=== PATIENT | male | born 1940 | race Caucasian/White ===

== ENCOUNTER → 2018-01-17 | Outpatient (CLI) | payer MEDICARE ==
--- NOTE | 2018-01-17 16:05 | US ---
EXAMINATION TYPE: US duplex aorta DATE OF EXAM: 01/17/2018 COMPARISON: NONE CLINICAL HISTORY: I71.4 ABDOMINAL AORTIC ANEURYSM. AAA visualized on a chiropractic x-ray EXAM MEASUREMENTS: Abdominal Aorta: Proximal: 2.3 x 2.4cm Mid: 1.9 x 1.9cm Distal: 3.2 x 3.5cm Bifurcation: RT: 1.3 x 1.3cm LT: 1.3 x 1.3cm Distal AAA measuring up to 3.5cm. Technical limitations due to large amount of overlying bowel conten t. Limited evaluation of bifurcation There is a focal area of fusiform prominence within the distal abdominal aorta with an AP diameter of 3.1 cm the aortic bifurcation appears normal. This begins below the level the renal arteries and the distal aorta. IMPRESSION: 1. Focal fusiform prominence distal abdominal aorta terminating above the bifurcation with an AP dime nsion of 3.1 cm. Consider additional evaluation CT abdomen and pelvis.
== END | disposition home or self-care (01) ==
LOC: RADUSWWP 15:29
PROVIDERS: ATTEND Family Medicine
DX: I71.4 Abdominal aortic aneurysm, without rupture (principal)
CPT/HCPCS: 93979

== ENCOUNTER → 2018-02-11 | Outpatient (CLI) | payer MEDICARE ==
[2018-02-11 17:30] LABS: Calcium 9.6 mg/dL (8.4-10.2); Potassium 4.2 mmol/L (3.5-5.1)
--- NOTE | 2018-02-11 23:18 | CT ---
EXAMINATION TYPE: CT abdomen pelvis w con DATE OF EXAM: 02/11/2018 COMPARISON: NONE HISTORY: 77-year-old male abdominal aortic aneurysm without rupture. No complaints at time of scan TECHNIQUE: Contiguous axial scanning of the abdomen and pelvis following administration of 100 ml Iso jay 300 IV contrast. Delayed images through the kidneys and coronal/sagittal reconstructions perform ed. CT DLP: 1754 mGycm Automated exposure control for dose reduction was used. FINDINGS: Partially visualized aneurysm of the ascending aorta at 4.3 cm. Lung bases clear without pleural effu tiara. Heart is normal size without pericardial effusion. Tiny hiatal hernia. No focal liver lesion or biliary ductal dilatation. Small diverticulum of the second portion of the d uodenum projecting to the pancreatic head region. Portal venous system is patent. Gallbladder, adrenal glands,, spleen with tiny calcified granuloma, and pancreas appear within normal limits. The kidneys show numerous parapelvic cysts and subcentimeter cortical-based hypodense lesions too sma ll for accurate CT characterization, likely cysts. There is a dominant 2.7 cm cyst in the posterior u pper pole right kidney. A 1.4 cm cortical based lesion at the lateral lower pole right kidney and als o at the lower pole right kidney show soft tissue attenuation and should be reassessed at follow-up, axial image 54 and 58. Punctate nonobstructive 2 mm calculus in the right kidney and additional 4 mm nonobstructive calculus lower pole left kidney. No dilated small bowel, free fluid, or free air. Scattered nonenlarged mesenteric lymph nodes are pre sent. No abnormal lymphadenopathy seen. Mild overall stool burden with sigmoid diverticulosis. No pericolonic inflammatory change. Bilateral accessory renal arteries are present. Mild to moderate atherosclerotic calcification of the infrarenal abdominal aorta with bilobed fusiform dilatations measuring 2.9 and 2.6 cm, coronal image 62 and 59. Tortuous bilateral common iliac arteries with ectatic right common iliac artery at 1.8 cm , coronal image 62. Bladder urine distended. Prostate gland enlargement 5.1 cm with some posterior impression on the blad sanna base suggesting BPH. No abnormal fluid collection in the pelvis or pelvic lymphadenopathy seen. Bones: Degenerative changes at the SI joints and also in the mid to lower lumbar spine. IMPRESSION: 1. PARTIALLY VISUALIZED ASCENDING AORTIC ANEURYSM AT 4.3 CM. 2. BILOBED FUSIFORM ECTASIA OF THE INFRARENAL ABDOMINAL AORTA MEASURING 2.9 AND 2.6 CM; ADDITIONAL EC TATIC RIGHT COMMON ILIAC ARTERY AT 1.8 CM. 3. INCIDENTAL BILATERAL ACCESSORY RENAL ARTERIES. 4. PROSTATOMEGALY (5.1 CM) WITH SOME POSTERIOR IMPRESSION ON TO THE BLADDER BASE SUGGESTING BPH. 5. MULTIPLE BILATERAL RENAL LESIONS INCLUDING PARAPELVIC CYSTS AND SUSPECTED ADDITIONAL SMALL CORTICA L CYSTS. 2 CORTICAL LESIONS IN THE LOWER POLE OF THE RIGHT KIDNEY MEASURING UP TO 1.4 CM SHOW SOFT TI SSUE ATTENUATION WITH PROTEINACEOUS/HEMORRHAGIC CYSTS OR SMALL SOLID MASSES INCLUDED IN THE DIFFERENT IAL. A SIX-MONTH FOLLOW-UP CT IS RECOMMENDED TO ENSURE STABILITY. 6. PUNCTATE 2 MM NONOBSTRUCTIVE CALCULUS IN THE RIGHT KIDNEY AND A 4 MM NONOBSTRUCTIVE CALCULUS ON TH E LEFT. 7. SIGMOID DIVERTICULOSIS.
== END | disposition home or self-care (01) ==
LOC: RADCTMAIN 16:55
PROVIDERS: ATTEND Family Medicine
DX: I71.4 Abdominal aortic aneurysm, without rupture (principal); N40.0 Benign prostatic hyperplasia without lower urinary tract symptoms; N28.89 Other specified disorders of kidney and ureter; N28.1 Cyst of kidney, acquired; N20.0 Calculus of kidney; K57.30 Diverticulosis of large intestine without perforation or abscess without bleeding
CPT/HCPCS: 80048; 74177; 36415; Q9967

== ENCOUNTER 2018-03-25 12:48 | Emergency (ER) | payer MEDICARE ==
[2018-03-25] MEDS ORDERED: SODIUM CHLORIDE 0.9% 1,000 ML IV STA (13:19)
[2018-03-25 14:02] LABS: Basophils # (A) 0.1 k/uL (0-0.2); Basophils % (A) 1 %; Eosinophils # (A) 0.2 k/uL (0-0.7); Eosinophils % (A) 4 %; HCT 43.7 % (39.0-53.0); HGB 14.1 gm/dL (13.0-17.5); Lymphocytes # (A) 1.4 k/uL (1.0-4.8); Lymphocytes % (A) 21 %; MCH 30.3 pg (25.0-35.0); MCHC 32.2 g/dL (31.0-37.0); MCV 94.2 fL (80.0-100.0); Mean Platelet Volume 8.1; Monocytes # (A) 0.5 k/uL (0-1.0); Monocytes % (A) 8 %; Neutrophils # (A) 4.4 k/uL (1.3-7.7); Neutrophils % (A) 64 %; Platelet Count 114 k/uL (150-450); RBC 4.64 m/uL (4.30-5.90); RDW 13.1 % (11.5-15.5); WBC 6.9 k/uL (3.8-10.6)
[2018-03-25 14:11] LABS: Partial Thromboplastin Time 24.4 sec (22.0-30.0)
[2018-03-25 14:12] LABS: Albumin 3.6 g/dL (3.5-5.0); Calcium 9.1 mg/dL (8.4-10.2); Magnesium 2.1 mg/dL (1.6-2.3); Potassium 4.6 mmol/L (3.5-5.1); Total Bilirubin 0.5 mg/dL (0.2-1.3); Total Protein 5.9 g/dL (6.3-8.2)
[2018-03-25 14:22] LABS: Creatine Kinase 47 U/L (55-170)
[2018-03-25 14:35] LABS: Creatine Kinase MB 0.6 ng/mL (0.0-2.4); Troponin I <0.012 ng/mL (0.000-0.034)
--- NOTE | 2018-03-25 14:59 | ED ---
General Adult HPI - General Chief complaint: Recheck/Abnormal Lab/Rx Stated complaint: hypertension Time Seen by Provider: 03/25/18 13:05 Source: patient Mode of arrival: wheelchair Limitations: no limitations - History of Present Illness Initial comments: 77 years old gentleman has history of aneurysm is seen his family doctor and then he seen the vascular surgery Dr. Federico mobley a he was advised to keep his blood pressure around 09/25/1943 today's blood pressure was 160 and he was concerned about This is to be denies any headaches no chest pain no shortness of breath no abdominal pain no frequency urgency dysuria - Related Data Home Medications Medication Instructions Recorded Confirmed Oxybutynin Chloride [Ditropan] 5 mg PO BID 01/11/16 03/25/18 Aspirin EC [Ecotrin Low Dose] 81 mg PO DAILY 03/25/18 03/25/18 Cholecalciferol [Vitamin D3] 4,000 unit PO DAILY 03/25/18 03/25/18 Fish Oil/Dha/Epa [Fish Oil 1,200 1 cap PO DAILY 03/25/18 03/25/18 mg Fish Oil] Losartan Potassium [Cozaar] 50 mg PO DAILY 03/25/18 03/25/18 Multivit-Min/FA/Lycopen/Lutein 1 tab PO DAILY 03/25/18 03/25/18 [Centrum Silver Tablet] Tamsulosin [Flomax] 0.4 mg PO BID 03/25/18 03/25/18 amLODIPine [Norvasc] 2.5 mg PO HS 03/25/18 03/25/18 Previous Rx's Medication Instructions Recorded Atorvastatin [Lipitor] 80 mg PO HS #30 tab 01/13/16 Metoprolol Tartrate [Lopressor] 25 mg PO BID #60 tab 01/13/16 Nitroglycerin Sl Tabs [Nitrostat] 0.4 mg SUBLINGUAL Q5M PRN #25 tab 01/13/16 Allergies Allergy/AdvReac Type Severity Reaction Status Date / Time No Known Allergies Allergy Verified 03/25/18 13:20 Review of Systems ROS Statement: Those systems with pertinent positive or pertinent negative responses have been documented in the HPI. ROS Other: All systems not noted in ROS Statement are negative. Past Medical History Past Medical History: Cancer, Hypertension, Myocardial Infarction (MD), Prostate Disorder, Sleep Apnea/CPAP/BIPAP Additional Past Medical History / Comment(s): LEFT REAR SHOULDER MELANOMA REMOVED Last Myocardial Infarction Date:: 01/10/16 History of Any Multi-Drug Resistant Organisms: None Reported Past Surgical History: Adenoidectomy, Appendectomy, Orthopedic Surgery, Tonsillectomy Additional Past Surgical History / Comment(s): Hand surg; prostate surg Past Anesthesia/Blood Transfusion Reactions: No Reported Reaction Past Psychological History: No Psychological Hx Reported Smoking Status: Never smoker Past Alcohol Use History: Occasional Past Drug Use History: None Reported - Past Family History Father Family Medical History: Hypertension, Renal Disease Mother Family Medical History: Myocardial Infarction (MD) General Exam - General Exam Comments Initial Comments: General: The patient is awake and alert, in no distress, and does not appear acutely ill. Skin: Skin is warm and dry and no rashes or lesions are noted. Eye: Pupils are equal, round and reactive to light, extra-ocular movements are intact; there is normal conjunctiva bilaterally. Ears, nose, mouth and throat: There are moist mucous membranes and no oral lesions. Neck: The neck is supple, there is no tenderness or JVD. Cardiovascular: There is a regular rate and rhythm. No murmur, rub or gallop is appreciated. Respiratory: To auscultation bilateral, no wheezing no rhonchi no distress respiratory belle noticed Gastrointestinal: Soft, non-distended, non-tender abdomen without masses or organomegaly noted. There is no rebound or guarding present. Bowel sounds are unremarkable. Back: There is no tenderness to palpation in the midline. There is no obvious deformity. Musculoskeletal: Normal ROM, no tenderness, There is no pedal edema. There is no calf tenderness or swelling. No cords were appreciated. Neurological: CN II-XII intact, Cranial nerves III through XII are intact. There are no obvious motor or sensory deficits. Coordination appears grossly intact. Speech is normal. Psychiatric: Cooperative, appropriate mood & affect, normal judgment. Limitations: no limitations Course Vital Signs 03/25/18 12:55 Temperature 97.9 F Pulse Rate 46 L Respiratory 16 Rate Blood Pressure 160/89 O2 Sat by Pulse 97 Oximetry Initial blood pressure was 160/89 he wasn't monitor I is reassessed to 45 minutes later it was 136/72 and then 45 minutes later it was 129/65 but then it went up to 160 at 1500, he has no symptoms of his medications are reviewed he is on amlodipine metoprolol and losartan he was advised to continue dose and he was also advised to monitor his blood pressure twice daily along with the family doctor or ER in next few days. I explained them that adding another medication or increasing the dose of his existing amlodipine or losartan could be detrimental it could overcorrect the blood pressure and cause him dizziness and falls he agreed with the EKG Findings - EKG Comments: EKG Findings:: Him EKG is sinus bradycardia ventricular rate is 46 CT interval is 180 QRS duration is 94 QT/QTc is 448/392 noticed a T-wave inversion in lead [address] elevation or ST depression noticed in the other leads Medical Decision Making - Lab Data Result diagrams: 03/25/18 13:50 03/25/18 13:50 Lab Results 03/25/18 03/25/18 03/25/18 Range/Units 13:50 13:50 13:50 WBC 6.9 (3.8-10.6) k/uL RBC 4.64 (4.30-5.90) m/uL Hgb 14.1 (13.0-17.5) gm/dL Hct 43.7 (39.0-53.0) % MCV 94.2 (80.0-100.0) fL MCH 30.3 (25.0-35.0) pg MCHC 32.2 (31.0-37.0) g/dL RDW 13.1 (11.5-15.5) % Plt Count 114 L (150-450) k/uL Neutrophils % 64 % Lymphocytes % 21 % Monocytes % 8 % Eosinophils % 4 % Basophils % 1 % Neutrophils # 4.4 (1.3-7.7) k/uL Lymphocytes # 1.4 (1.0-4.8) k/uL Monocytes # 0.5 (0-1.0) k/uL Eosinophils # 0.2 (0-0.7) k/uL Basophils # 0.1 (0-0.2) k/uL PT (9.0-12.0) sec INR (<1.2) APTT (22.0-30.0) sec Sodium 142 (137-145) mmol/L Potassium 4.6 (3.5-5.1) mmol/L Chloride 110 H (98-107) mmol/L Carbon Dioxide 25 (22-30) mmol/L Anion Gap 7 mmol/L BUN 23 H (9-20) mg/dL Creatinine 1.07 (0.66-1.25) mg/dL Est GFR (CKD-EPI)AfAm 77 (>60 ml/min/1.73 sqM) Est GFR (CKD-EPI)NonAf 66 (>60 ml/min/1.73 sqM) Glucose 91 (74-99) mg/dL Calcium 9.1 (8.4-10.2) mg/dL Magnesium 2.1 (1.6-2.3) mg/dL Total Bilirubin 0.5 (0.2-1.3) mg/dL AST 27 (17-59) U/L ALT 38 (21-72) U/L Alkaline Phosphatase 54 (38-126) U/L Total Creatine Kinase 47 L (55-170) U/L CK-MB (CK-2) 0.6 (0.0-2.4) ng/mL CK-MB (CK-2) Rel Index 1.3 Troponin I <0.012 (0.000-0.034) ng/mL Total Protein 5.9 L (6.3-8.2) g/dL Albumin 3.6 (3.5-5.0) g/dL 03/25/18 Range/Units 13:50 WBC (3.8-10.6) k/uL RBC (4.30-5.90) m/uL Hgb (13.0-17.5) gm/dL Hct (39.0-53.0) % MCV (80.0-100.0) fL MCH (25.0-35.0) pg MCHC (31.0-37.0) g/dL RDW (11.5-15.5) % Plt Count (150-450) k/uL Neutrophils % % Lymphocytes % % Monocytes % % Eosinophils % % Basophils % % Neutrophils # (1.3-7.7) k/uL Lymphocytes # (1.0-4.8) k/uL Monocytes # (0-1.0) k/uL Eosinophils # (0-0.7) k/uL Basophils # (0-0.2) k/uL PT 10.0 (9.0-12.0) sec INR 1.0 (<1.2) APTT 24.4 (22.0-30.0) sec Sodium (137-145) mmol/L Potassium (3.5-5.1) mmol/L Chloride (98-107) mmol/L Carbon Dioxide (22-30) mmol/L Anion Gap mmol/L BUN (9-20) mg/dL Creatinine (0.66-1.25) mg/dL Est GFR (CKD-EPI)AfAm (>60 ml/min/1.73 sqM) Est GFR (CKD-EPI)NonAf (>60 ml/min/1.73 sqM) Glucose (74-99) mg/dL Calcium (8.4-10.2) mg/dL Magnesium (1.6-2.3) mg/dL Total Bilirubin (0.2-1.3) mg/dL AST (17-59) U/L ALT (21-72) U/L Alkaline Phosphatase (38-126) U/L Total Creatine Kinase (55-170) U/L CK-MB (CK-2) (0.0-2.4) ng/mL CK-MB (CK-2) Rel Index Troponin I (0.000-0.034) ng/mL Total Protein (6.3-8.2) g/dL Albumin (3.5-5.0) g/dL Disposition Clinical Impression: Hypertension Disposition: HOME SELF-CARE Condition: Good Instructions: Hypertension (ED) Is patient prescribed a controlled substance at d/c from ED?: No Referrals: Mc Mukherjee DO [Primary Care Provider] - 1-2 days
[2018-03-25 15:33] VITALS: BP 121/64; PULSE 50; RESP 18; TEMP 98
== END 2018-03-25 15:20 | disposition home or self-care (01) ==
LOC: EC 12:48
DX: I10 Essential (primary) hypertension (principal); I25.2 Old myocardial infarction; G47.30 Sleep apnea, unspecified; Z99.89 Dependence on other enabling machines and devices; Z85.820 Personal history of malignant melanoma of skin; Z86.79 Personal history of other diseases of the circulatory system; Z90.49 Acquired absence of other specified parts of digestive tract; Z98.890 Other specified postprocedural states; Z79.82 Long term (current) use of aspirin; Z79.899 Other long term (current) drug therapy
CPT/HCPCS: 36415; 80053; 82550; 82553; 83735; 84484; 85025; 85610; 85730; 93005; 99283

== ENCOUNTER 2018-10-22 18:40 | Emergency (ER) | payer MEDICARE ==
--- NOTE | 2018-10-22 20:23 | ED ---
Male Urogenital HPI <Adrian Ohara - Last Filed: 10/22/18 22:33> - General Source: patient, family, RN notes reviewed, old records reviewed Mode of arrival: wheelchair Limitations: no limitations - History of Present Illness MD Complaint: testicle pain, testicle swelling -: hour(s) Location: left testicle Radiation: none Severity: mild Severity scale (1-10): 2 Quality: aching Consistency: constant Improves with: none Worsens with: none Reports: denies other symptoms <Bruce Cloud - Last Filed: 10/23/18 22:34> - General Chief complaint: Urogenital Stated complaint: Male Time Seen by Provider: 10/22/18 19:48 - History of Present Illness Initial comments: This is an 78-year-old 78-year-old female to the ER for evaluation. Presents today for evaluation scrotal swelling. Scrotal swelling redness and pain. No dysuria no fevers no abdominal pain. No other significant complaint. (Bruce Cloud) - Related Data Home Medications Medication Instructions Recorded Confirmed Oxybutynin Chloride [Ditropan] 5 mg PO BID 01/11/16 10/22/18 Aspirin EC [Ecotrin Low Dose] 81 mg PO DAILY 03/25/18 10/22/18 Cholecalciferol [Vitamin D3] 4,000 unit PO DAILY 03/25/18 10/22/18 Fish Oil/Dha/Epa [Fish Oil 1,200 1 cap PO DAILY 03/25/18 10/22/18 mg Fish Oil] Losartan Potassium [Cozaar] 50 mg PO DAILY 03/25/18 10/22/18 Multivit-Min/FA/Lycopen/Lutein 1 tab PO DAILY 03/25/18 10/22/18 [Centrum Silver Tablet] Tamsulosin [Flomax] 0.4 mg PO BID 03/25/18 10/22/18 amLODIPine [Norvasc] 2.5 mg PO HS 03/25/18 10/22/18 Previous Rx's Medication Instructions Recorded Atorvastatin [Lipitor] 80 mg PO HS #30 tab 01/13/16 Metoprolol Tartrate [Lopressor] 25 mg PO BID #60 tab 01/13/16 Nitroglycerin Sl Tabs [Nitrostat] 0.4 mg SUBLINGUAL Q5M PRN #25 tab 05/20/16 Levofloxacin [Levaquin] 500 mg PO DAILY 14 Days #14 tab 10/22/18 Allergies Allergy/AdvReac Type Severity Reaction Status Date / Time No Known Allergies Allergy Verified 10/22/18 21:43 Review of Systems ROS Other: All systems not noted in ROS Statement are negative. <Adrian Ohara - Last Filed: 10/22/18 22:33> ROS Other: All systems not noted in ROS Statement are negative. <Bruce Cloud - Last Filed: 10/23/18 22:34> ROS Statement: Those systems with pertinent positive or pertinent negative responses have been documented in the HPI. Past Medical History Past Medical History: Cancer, Hypertension, Myocardial Infarction ([place]), Prostate Disorder, Sleep Apnea/CPAP/BIPAP Additional Past Medical History / Comment(s): LEFT REAR SHOULDER MELANOMA REMOVED Last Myocardial Infarction Date:: 01/10/16 History of Any Multi-Drug Resistant Organisms: None Reported Past Surgical History: Adenoidectomy, Appendectomy, Orthopedic Surgery, Tonsillectomy Additional Past Surgical History / Comment(s): Hand surg; prostate surg Past Anesthesia/Blood Transfusion Reactions: No Reported Reaction Past Psychological History: No Psychological Hx Reported Smoking Status: Never smoker Past Alcohol Use History: Occasional Past Drug Use History: None Reported - Past Family History Father Family Medical History: Hypertension, Renal Disease Mother Family Medical History: Myocardial Infarction ([place]) <Bruce Cloud - Last Filed: 10/23/18 22:34> General Exam Limitations: no limitations General appearance: alert, in no apparent distress Head exam: Present: atraumatic, normocephalic, normal inspection Eye exam: Present: normal appearance, PERRL, EOMI. Absent: scleral icterus, conjunctival injection, periorbital swelling ENT exam: Present: normal exam, mucous membranes moist Neck exam: Present: normal inspection. Absent: tenderness, meningismus, lymphadenopathy Respiratory exam: Present: normal lung sounds bilaterally. Absent: respiratory distress, wheezes, rales, rhonchi, stridor Cardiovascular Exam: Present: regular rate, normal rhythm, normal heart sounds. Absent: systolic murmur, diastolic murmur, rubs, gallop, clicks GI/Abdominal exam: Present: soft, normal bowel sounds. Absent: distended, tenderness, guarding, rebound, rigid exam: Present: testicular tenderness, scrotal swelling Extremities exam: Present: normal inspection, full ROM, normal capillary refill. Absent: tenderness, pedal edema, joint swelling, calf tenderness Back exam: Present: normal inspection Neurological exam: Present: alert, oriented X3, CN II-XII intact Psychiatric exam: Present: normal affect, normal mood Skin exam: Present: warm, dry, intact, normal color. Absent: rash <Bruce Cloud - Last Filed: 10/23/18 22:34> Course <Adrian Ohara - Last Filed: 10/22/18 22:33> <Bruce Cloud - Last Filed: 10/23/18 22:34> Vital Signs 10/22/18 10/22/18 19:11 22:32 Temperature 99 F 98.7 F Pulse Rate 65 85 Respiratory 18 20 Rate Blood Pressure 163/82 162/86 O2 Sat by Pulse 97 98 Oximetry - Reevaluation(s) Reevaluation #1: 10/22/18 20:48 Medical record is reviewed (Bruce Cloud) Medical Decision Making <Adrian Ohara - Last Filed: 10/22/18 22:33> - Radiology Data Radiology results: report reviewed (US shows bilateral hydroceles), image reviewed <Bruce Cloud - Last Filed: 10/23/18 22:34> - Medical Decision Making Patient signed out to me by Dr. Winkler To follow-up UA and ultrasound results. Ultrasound not showing any evidence for epididymitis or orchitis. Does show bilateral hydroceles with the patient's UA was remarkable for urinary tract infection. Given the patient's symptoms and positive UA we'll treat him with Levaquin daily for the next couple of weeks. Told to follow-up with his primary doctor and urologist. Can return emergency Department if he develops any worsening symptoms including worsening swelling, pain, redness, fevers, chills, or any other concerning symptoms. All questions answered. (Adrian Ohara) 78-year-old male the ER with UTI, orchitis. Patient was placed on antibiotics and can be discharged home (Bruce Cloud) - Lab Data Lab Results 10/22/18 Range/Units 21:50 Urine Color Yellow Urine Appearance Cloudy (Clear) Urine pH 5.5 (5.0-8.0) Ur Specific Harmony 1.021 (1.001-1.035) Urine Protein 1+ H (Negative) Urine Glucose (UA) Negative (Negative) Urine Ketones Negative (Negative) Urine Blood Small H (Negative) Urine Nitrite Negative (Negative) Urine Bilirubin Negative (Negative) Urine Urobilinogen <2.0 (<2.0) mg/dL Ur Leukocyte Esterase Large H (Negative) Urine RBC 10 H (0-5) /hpf Urine WBC 127 H (0-5) /hpf Ur Squamous Epith Cells 1 (0-4) /hpf Urine Mucus Rare H (None) /hpf Disposition Is patient prescribed a controlled substance at d/c from ED?: No <Adrian Ohara - Last Filed: 10/22/18 22:33> Is patient prescribed a controlled substance at d/c from ED?: No <Bruce Cloud - Last Filed: 10/23/18 22:34> Clinical Impression: UTI (urinary tract infection), Hydrocele, bilateral Disposition: HOME SELF-CARE Condition: Good Instructions (If sedation given, give patient instructions): Urinary Tract Infection in Men (ED) Prescriptions: Levofloxacin [Levaquin] 500 mg PO DAILY 14 Days #14 tab Referrals: Mc Mukherjee DO [Primary Care Provider] - 1-2 days
--- NOTE | 2018-10-22 21:22 | US ---
EXAMINATION TYPE: US scrotum with doppler. Grayscale and color Doppler Duplex imaging performed of t nereyda scrotum. DATE OF EXAM: 10/22/2018 COMPARISON: NONE CLINICAL HISTORY: Pain. Pain and edema left side. EXAM MEASUREMENTS: TESTICLES: Right Testicle: 4.1 x 2.9 x 2.7 cm Left Testicle: 3.5 x 2.9 x 2.7 cm EPIDIDYMIS HEAD: Right Epididymis: 1.0 x .9 x 1.1 cm Left Epididymis: 1.3 x 1.4 x 1.4 cm Doppler performed to assess for testicular vascularity; good bilateral color flow and waveforms are s een. There is no evidence of testicular torsion. Presence of hydroceles: Yes bilaterally. Presence of varicoceles: No Cystic area lateral to left testicle 1.4 x 1.5 x 1.4cm. IMPRESSION: Bilateral hydroceles. No testicular torsion or mass. No evidence of epididymal mass. 14 m m cyst adjacent to the left testicle of uncertain significance.
[2018-10-22 22:12] LABS: Appearance,Urine Cloudy (Clear); Bilirubin,Urine Negative (Negative); Blood,Urine Small (Negative); Color,Urine Yellow; Glucose,Urine (UA) Negative (Negative); Ketones,Urine Negative (Negative); Leukocyte Esterase,Urine Large (Negative); Mucus,Urine Rare /hpf; Nitrite,Urine Negative (Negative); PH, Urine 5.5 (5.0-8.0); Protein,Urine 1+ (Negative); RBC,Urine 10 /hpf (0-5); Specific Gravity,Urine 1.021 (1.001-1.035); Squamous Epithelial Cell,Urine 1 /hpf (0-4); Urobilinogen,Urine <2.0 mg/dL (<2.0); WBC,Urine 127 /hpf (0-5)
[2018-10-22 22:33] VITALS: BP 162/86; PULSE 85; RESP 20; TEMP 98.7
== END 2018-10-22 22:33 | disposition home or self-care (01) ==
LOC: EC 18:40
DX: N45.3 Epididymo-orchitis (principal); N39.0 Urinary tract infection, site not specified; I10 Essential (primary) hypertension; I25.2 Old myocardial infarction; N42.9 Disorder of prostate, unspecified; G47.30 Sleep apnea, unspecified; Z99.89 Dependence on other enabling machines and devices; Z85.820 Personal history of malignant melanoma of skin; Z79.82 Long term (current) use of aspirin; Z79.899 Other long term (current) drug therapy
CPT/HCPCS: 76870; 81001; 87086; 93975; 99284

== ENCOUNTER → 2019-03-11 | Outpatient (CLI) | payer MEDICARE ==
--- NOTE | 2019-03-11 08:14 | CT ---
EXAMINATION TYPE: CT angio chest DATE OF EXAM: 03/11/2019 COMPARISON: None HISTORY: Ascending Aortic Aneurysm CT DLP: 445.8 mGycm CONTRAST: CTA thoracic aorta with 3-D reconstruction is performed and with IV Contrast, patient injected with 1 00 mL of Isovue 370. Contrast CTA of the thoracic aorta was performed from the lung apex through the upper abdomen. 3D re construction imaging obtained at a separate workstation. CT Chest: THORACIC AORTA: Ascending thoracic aortic aneurysm is noted to measure 4.3 cm AP dimension. Aortic ar ch and descending thoracic aorta are of normal caliber. Mild atheromatous change noted. No evidence f or dissection or complicating factor. LUNGS: The lungs are clear and free of infiltrate or atelectasis. No pulmonary nodule or mass is det ected. No pleural effusion or CT evidence of interstitial lung disease. MEDIASTINUM: No evidence for mediastinal hematoma. The heart is not enlarged. No evidence for med iastinal mass or adenopathy. HILAR STRUCTURES: No evidence for mass. No hilar adenopathy is appreciated. OTHER: Simple renal cysts noted. Duodenal diverticulum identified incidentally. IMPRESSION- 1. Ascending thoracic aortic aneurysm without complicating factor.
== END | disposition home or self-care (01) ==
LOC: RADCTMAIN 05:59
PROVIDERS: ATTEND Surgery Vascular Surgery
DX: I71.2 Thoracic aortic aneurysm, without rupture (principal)
CPT/HCPCS: 82565; 84520; 71275; Q9967

== ENCOUNTER → 2020-02-23 | Outpatient (CLI) | payer MEDICARE ==
--- NOTE | 2020-02-23 20:06 | CONS ---
CONSULTATION This is an 79-year-old male patient who was diagnosed having obstructive sleep apnea more than 15 years ago. My last encounter with this patient was in 2014, and at that time I confirmed the diagnosis being severe, with an AHI of 39.8, and the patient was given CPAP at a pressure of 9 cm of water. The patient was doing very well on this current setting. He was very compliant and he was receiving treatment successfully until around 2 weeks ago, when his machine completely quit. It started turning off at night without giving any warning, and currently it is completely . The patient is symptomatic, sleepy at this point, and he is in need of a CPAP machine as soon as possible. For that reason he made an appointment and he came to see me here at the sleep center. I was able to retrieve some of the compliance data. The patient was very compliant prior to his machine dying on him. His AHI was down to 3.4 while on treatment. He was averaging around 7.4 hours of CPAP use per night. In the interim, the patient was diagnosed having an ascending aortic aneurysm measuring 4.2 cm in size. He also has hypertension and he was diagnosed having some mild CHF with an ejection fraction of 45% to 50%. He has BPH and hyperlipidemia and hypertension as comorbidities. No other new complaints. He uses a Mirage FX nose mask and his treatment has been essentially successful. The patient is looking to obtain a new CPAP unit. PAST MEDICAL HISTORY: GALINDO, hypertension, ascending aortic aneurysm, CHF, hyperlipidemia, BPH. SURGICAL HISTORY: Surgical history includes TURP, appendectomy, repair of a deviated nasal septum and prostate surgery. DRUG ALLERGIES: NOT KNOWN. OUTPATIENT MEDICATION LIST: Outpatient medication list includes Norvasc 2.5 daily, aspirin 81 mg p.o. daily, Lipitor 80 mg p.o. daily, metoprolol 25 mg twice a day, irbesartan 150 mg p.o. daily, oxybutynin 5 mg p.o. twice a day and Flomax 0.4 mg p.o. daily. SOCIAL HISTORY: He is a nonsmoker. No history of alcoholism. No history of IV drugs. FAMILY HISTORY: Negative for sleep apnea. REVIEW OF SYSTEMS: Fourteen-point review of system was done. Positive findings are mentioned in the history of present illness. PHYSICAL EXAMINATION: BP is 137/88, pulse 64, respirations 16, temperature 97.4, saturation 95% on room air. Height is 5 feet 9 inches, weight is 231. Neck size is 17 inches. Weight 220 pounds. GENERAL APPEARANCE: Calm, comfortable. No acute distress. HEAD: Atraumatic, normocephalic. NECK: Supple. No JVD. No goiter or neck masses. Mallampati class IV. LUNGS: Clear to auscultation. HEART: Heart sounds are regular rate and rhythm. Normal S1, S2. No S3, S4. No murmurs. ABDOMEN: Soft, nontender. No organomegaly. EXTREMITIES: No edema. No cyanosis or clubbing. NEUROLOGIC: Awake and alert. There is no focal neurological deficit. IMPRESSION: 1. Symptomatic obstructive sleep apnea with an AHI of 39.8, maintained on CPAP pressure of 9. His machine is not functional and he is in need of a new machine. At this point in time the patient is symptomatic. 2. Hypersomnia secondary to above. 3. Hypertension. 4. Ascending aortic aneurysm measuring 4.2 cm. 5. Congestive heart failure with an ejection fraction around 45%. 6. Hyperlipidemia. 7. Benign prostatic hypertrophy. PLAN: Order a new CPAP machine at a pressure of 9 cm of water. I do not see the need to repeat a titration at this point in time, especially since his treatment had been successful prior to his machine quitting on him. Unless required by insurance, I am not going to order a new study and I am going to proceed with ordering a new CPAP unit for this patient. The order will be going to [facility] and the patient will be given the same mask interface for now. Note that I checked his machine in the office, and I confirmed that it is completely and nonfunctional. Meanwhile, I asked the patient to make sure that he does not drive, especially when he is drowsy or sleepy, to avoid any potential life-threatening motor vehicle accident. Appropriate instructions were given. The patient will see me back in 30 to 90 days after obtaining his new CPAP unit. MMODL / IJN: [id number] /
== END | disposition home or self-care (01) ==
LOC: SLEEP 14:15
PROVIDERS: ATTEND Internal Medicine Critical Care Medicine
DX: G47.33 Obstructive sleep apnea (adult) (pediatric) (principal); I71.2 Thoracic aortic aneurysm, without rupture; E78.5 Hyperlipidemia, unspecified; N40.0 Benign prostatic hyperplasia without lower urinary tract symptoms; I11.0 Hypertensive heart disease with heart failure; Z79.82 Long term (current) use of aspirin; Z79.899 Other long term (current) drug therapy
CPT/HCPCS: 99211

== ENCOUNTER 2021-02-21 05:50 | Observation (INO) | payer MEDICARE ==
[2021-02-21] MEDS ORDERED: ONDANSETRON 4 MG/2 ML VIAL IVP STA (06:07)
[2021-02-21] MEDS ORDERED: SODIUM CHLORIDE 0.9% 500 ML 500 ML IV STA (06:07)
[2021-02-21] MEDS ORDERED: HYDROmorphone 0.5 MG/0.5 ML SYRINGE IVP STA ×3 (06:07→08:17)
[2021-02-21 06:23] LABS: Basophils % (A) 1 %; Eosinophils # (A) 0.1 k/uL (0-0.7); Eosinophils % (A) 1 %; HCT 45.8 % (39.0-53.0); HGB 15.2 gm/dL (13.0-17.5); Lymphocytes # (A) 1.2 k/uL (1.0-4.8); Lymphocytes % (A) 13 %; MCH 30.9 pg (25.0-35.0); MCHC 33.1 g/dL (31.0-37.0); MCV 93.3 fL (80.0-100.0); Mean Platelet Volume 8.8; Monocytes # (A) 0.5 k/uL (0-1.0); Monocytes % (A) 6 %; Neutrophils # (A) 7.1 k/uL (1.3-7.7); Neutrophils % (A) 78 %; Platelet Count 108 k/uL (150-450); RDW 12.8 % (11.5-15.5); WBC 9.1 k/uL (3.8-10.6)
--- NOTE | 2021-02-21 06:26 | ED ---
Abdominal Pain HPI - General Chief Complaint: Abdominal Pain Stated Complaint: Abdominal pain Time Seen by Provider: 02/21/21 06:00 Source: patient, EMS Mode of arrival: EMS Limitations: no limitations - History of Present Illness Initial Comments: 80-year-old male with a past medical history of hypertension, [place], prostate disorder, abdominal aortic aneurysm presents to the emergency room for chief complaint of abdominal pain. Patient reports he has had abdominal pain since about 4 AM this morning. Patient states it is in the lower abdomen. He denies any radiating pain to his back. Denies any ripping or tearing pain. Patient denies nausea vomiting diarrhea. No fevers or chills at home. Denies any recent abdominal surgeries but does have a history of appendectomy.Patient has no other complaints at this time including shortness of breath, chest pain, nausea or vomiting, headache, or visual changes. MD Complaint: abdominal pain - Related Data Home Medications Medication Instructions Recorded Confirmed Oxybutynin Chloride [Ditropan] 5 mg PO BID 01/11/16 02/21/21 Aspirin EC [Ecotrin Low Dose] 81 mg PO HS 03/25/18 02/21/21 Cholecalciferol [Vitamin D3] 4,000 unit PO DAILY 03/25/18 02/21/21 Fish Oil/Dha/Epa [Fish Oil 1,200 1 cap PO DAILY 03/25/18 02/21/21 mg Fish Oil] Multivit-Min/FA/Lycopen/Lutein 1 tab PO DAILY 03/25/18 02/21/21 [Centrum Silver Tablet] Tamsulosin [Flomax] 0.4 mg PO BID 03/25/18 02/21/21 amLODIPine [Norvasc] 2.5 mg PO HS 03/25/18 02/21/21 Irbesartan [Avapro] 150 mg PO DAILY 02/21/21 02/21/21 Melatonin 10 mg PO HS 02/21/21 02/21/21 Pregabalin [Lyrica] 75 mg PO DAILY 02/21/21 02/21/21 Pregabalin [Lyrica] 150 mg PO HS 02/21/21 02/21/21 Vit C/E/Zn/Coppr/Lutein/Zeaxan 1 cap PO BID 02/21/21 02/21/21 [Preservision Areds 2 Softgel] Previous Rx's Medication Instructions Recorded Atorvastatin [Lipitor] 80 mg PO HS #30 tab 01/13/16 Metoprolol Tartrate [Lopressor] 25 mg PO BID #60 tab 01/13/16 Nitroglycerin Sl Tabs [Nitrostat] 0.4 mg SUBLINGUAL Q5M PRN #25 tab 01/13/16 Allergies Allergy/AdvReac Type Severity Reaction Status Date / Time No Known Allergies Allergy Verified 02/21/21 07:12 Review of Systems ROS Statement: Those systems with pertinent positive or pertinent negative responses have been documented in the HPI. ROS Other: All systems not noted in ROS Statement are negative. Past Medical History Past Medical History: Cancer, Hypertension, Myocardial Infarction ([place]), Prostate Disorder, Sleep Apnea/CPAP/BIPAP Additional Past Medical History / Comment(s): LEFT REAR SHOULDER MELANOMA REMOVED Last Myocardial Infarction Date:: 01/10/16 History of Any Multi-Drug Resistant Organisms: None Reported Past Surgical History: Adenoidectomy, Appendectomy, Orthopedic Surgery, Tonsillectomy Additional Past Surgical History / Comment(s): Hand surg; prostate surg Past Anesthesia/Blood Transfusion Reactions: No Reported Reaction Past Psychological History: No Psychological Hx Reported Smoking Status: Never smoker Past Alcohol Use History: Occasional Past Drug Use History: None Reported - Past Family History Father Family Medical History: Hypertension, Renal Disease Mother Family Medical History: Myocardial Infarction ([place]) General Exam Limitations: no limitations General appearance: alert, in no apparent distress Head exam: Present: atraumatic, normocephalic, normal inspection Eye exam: Present: normal appearance, PERRL, EOMI. Absent: scleral icterus, conjunctival injection, periorbital swelling ENT exam: Present: normal exam, mucous membranes moist Neck exam: Present: normal inspection, full ROM. Absent: tenderness, meningismus, lymphadenopathy Respiratory exam: Present: normal lung sounds bilaterally. Absent: respiratory distress, wheezes, rales, rhonchi, stridor Cardiovascular Exam: Present: regular rate, normal rhythm, normal heart sounds. Absent: systolic murmur, diastolic murmur, rubs, gallop, clicks GI/Abdominal exam: Present: soft, tenderness (Mild generalized lower abdominal tenderness. No upper abdominal tenderness. No right upper quadrant tenderness.), normal bowel sounds. Absent: distended, guarding, rebound, rigid Neurological exam: Present: alert Course Vital Signs 02/21/21 02/21/21 02/21/21 05:51 08:21 09:20 Temperature 97.7 F 97.4 F L Pulse Rate 67 68 74 Respiratory 16 18 18 Rate Blood Pressure 171/85 160/92 144/80 O2 Sat by Pulse 95 94 L 96 Oximetry Medical Decision Making - Medical Decision Making EKG: Ventricular rate 67, HI interval 204, QTC 420, normal sinus rhythm Are stable. The patient presents for abdominal pain. This has been ongoing sin ce 4 AM this morning. CBC is unremarkable. CMP does show some mild elevation in creatinine. UA shows 8 white blood cells however no obvious evidence of infection. Urine will be cultured. CT was obtained with contrast of the patient's history of mild abdominal aortic aneurysm. CT abdomen and pelvis with contrast showed a left UPJ calculus measuring 5.2 mm resulting in moderate left-sided hydronephrosis. There is mild perinephric stranding. Patient was given 3 doses of IV pain medication and continued to have significant pain. Patient's is very concerned about taking him home stating she will not be able to care for him. Dr Josue Discussed this case with Dr. Dan who does accept consults. Patient will be admitted to Dr. Hung as Dr. Motta is being covered. - Lab Data Result diagrams: 02/21/21 06:14 02/21/21 06:14 Lab Results 02/21/21 02/21/21 02/21/21 Range/Units 06:14 06:14 06:14 WBC 9.1 (3.8-10.6) k/uL RBC 4.90 (4.30-5.90) m/uL Hgb 15.2 (13.0-17.5) gm/dL Hct 45.8 (39.0-53.0) % MCV 93.3 (80.0-100.0) fL MCH 30.9 (25.0-35.0) pg MCHC 33.1 (31.0-37.0) g/dL RDW 12.8 (11.5-15.5) % Plt Count 108 L (150-450) k/uL MPV 8.8 Neutrophils % 78 % Lymphocytes % 13 % Monocytes % 6 % Eosinophils % 1 % Basophils % 1 % Neutrophils # 7.1 (1.3-7.7) k/uL Lymphocytes # 1.2 (1.0-4.8) k/uL Monocytes # 0.5 (0-1.0) k/uL Eosinophils # 0.1 (0-0.7) k/uL Basophils # 0.0 (0-0.2) k/uL Sodium 141 (137-145) mmol/L Potassium 4.2 (3.5-5.1) mmol/L Chloride 109 H (98-107) mmol/L Carbon Dioxide 27 (22-30) mmol/L Anion Gap 5 mmol/L BUN 31 H (9-20) mg/dL Creatinine 1.35 H (0.66-1.25) mg/dL Est GFR (CKD-EPI)AfAm 56 (>60 ml/min/1.73 sqM) Est GFR (CKD-EPI)NonAf 49 (>60 ml/min/1.73 sqM) Glucose 126 H (74-99) mg/dL Plasma Lactic Acid Morris (0.7-2.0) mmol/L Calcium 9.7 (8.4-10.2) mg/dL Total Bilirubin 0.4 (0.2-1.3) mg/dL AST 30 (17-59) U/L ALT 23 (4-49) U/L Alkaline Phosphatase 80 (38-126) U/L Total Protein 6.5 (6.3-8.2) g/dL Albumin 3.9 (3.5-5.0) g/dL Amylase 57 (30-110) U/L Lipase 144 (23-300) U/L Urine Color Yellow Urine Appearance Clear (Clear) Urine pH 6.5 (5.0-8.0) Ur Specific Stella 1.017 (1.001-1.035) Urine Protein 1+ H (Negative) Urine Glucose (UA) Negative (Negative) Urine Ketones Negative (Negative) Urine Blood Negative (Negative) Urine Nitrite Negative (Negative) Urine Bilirubin Negative (Negative) Urine Urobilinogen <2.0 (<2.0) mg/dL Ur Leukocyte Esterase Trace H (Negative) Urine WBC 8 H (0-5) /hpf Ur Squamous Epith Cells <1 (0-4) /hpf Urine Mucus Rare H (None) /hpf Blood Type Blood Type Confirm Blood Type Recheck Bld Type Recheck Status Antibody Screen Spec Expiration Date 02/21/21 02/21/21 02/21/21 Range/Units 06:14 06:14 06:15 WBC (3.8-10.6) k/uL RBC (4.30-5.90) m/uL Hgb (13.0-17.5) gm/dL Hct (39.0-53.0) % MCV (80.0-100.0) fL MCH (25.0-35.0) pg MCHC (31.0-37.0) g/dL RDW (11.5-15.5) % Plt Count (150-450) k/uL MPV Neutrophils % % Lymphocytes % % Monocytes % % Eosinophils % % Basophils % % Neutrophils # (1.3-7.7) k/uL Lymphocytes # (1.0-4.8) k/uL Monocytes # (0-1.0) k/uL Eosinophils # (0-0.7) k/uL Basophils # (0-0.2) k/uL Sodium (137-145) mmol/L Potassium (3.5-5.1) mmol/L Chloride (98-107) mmol/L Carbon Dioxide (22-30) mmol/L Anion Gap mmol/L BUN (9-20) mg/dL Creatinine (0.66-1.25) mg/dL Est GFR (CKD-EPI)AfAm (>60 ml/min/1.73 sqM) Est GFR (CKD-EPI)NonAf (>60 ml/min/1.73 sqM) Glucose (74-99) mg/dL Plasma Lactic Acid Morris 1.0 (0.7-2.0) mmol/L Calcium (8.4-10.2) mg/dL Total Bilirubin (0.2-1.3) mg/dL AST (17-59) U/L ALT (4-49) U/L Alkaline Phosphatase (38-126) U/L Total Protein (6.3-8.2) g/dL Albumin (3.5-5.0) g/dL Amylase (30-110) U/L Lipase (23-300) U/L Urine Color Urine Appearance (Clear) Urine pH (5.0-8.0) Ur Specific Stella (1.001-1.035) Urine Protein (Negative) Urine Glucose (UA) (Negative) Urine Ketones (Negative) Urine Blood (Negative) Urine Nitrite (Negative) Urine Bilirubin (Negative) Urine Urobilinogen (<2.0) mg/dL Ur Leukocyte Esterase (Negative) Urine WBC (0-5) /hpf Ur Squamous Epith Cells (0-4) /hpf Urine Mucus (None) /hpf Blood Type O Positive Blood Type Confirm O Positive Blood Type Recheck O Pos Bld Type Recheck Status No Antibody Screen NEGATIVE Spec Expiration Date 02/24/20212313 Disposition Clinical Impression: Intractable pain, Kidney stone Disposition: ADMITTED IP TO THIS HOSP Is patient prescribed a controlled substance at d/c from ED?: No Referrals: Mc Mukherjee DO [Primary Care Provider] - 1-2 days Time of Disposition: 09:32
[2021-02-21 06:48] LABS: Albumin 3.9 g/dL (3.5-5.0); Calcium 9.7 mg/dL (8.4-10.2); Potassium 4.2 mmol/L (3.5-5.1); Total Bilirubin 0.4 mg/dL (0.2-1.3); Total Protein 6.5 g/dL (6.3-8.2)
[2021-02-21 07:02] LABS: Appearance,Urine Clear (Clear); Bilirubin,Urine Negative (Negative); Blood,Urine Negative (Negative); Color,Urine Yellow; Glucose,Urine (UA) Negative (Negative); Ketones,Urine Negative (Negative); Leukocyte Esterase,Urine Trace (Negative); Mucus,Urine Rare /hpf; Nitrite,Urine Negative (Negative); PH, Urine 6.5 (5.0-8.0); Protein,Urine 1+ (Negative); Specific Gravity,Urine 1.017 (1.001-1.035); Squamous Epithelial Cell,Urine <1 /hpf (0-4); Urobilinogen,Urine <2.0 mg/dL (<2.0); WBC,Urine 8 /hpf (0-5)
--- NOTE | 2021-02-21 07:45 | CT ---
EXAMINATION TYPE: CT abdomen pelvis w con DATE OF EXAM: 02/21/2021 COMPARISON: 02/11/2018 HISTORY: Abd pain CT DLP: 1645.8 mGycm CONTRAST: CT scan of the abdomen and pelvis is performed without Oral Contrast and with IV Contrast, patient in jected with 80 mL of Isovue 300. FINDINGS: LUNG BASES-: No visible nodule. No infiltrate. LIVER/GB: Small gallbladder stone noted. No space occupying hepatic lesion. Biliary tree is of normal caliber. PANCREAS: No inflammation. No distinct mass. SPLEEN: No splenic enlargement. No lesion seen. ADRENALS: No nodule. No thickening. KIDNEYS/BLADDER: Left UPJ calculus measuring 5.2 mm resulting in moderate left-sided hydronephrosis. Mild perinephric stranding. Additional nonobstructing calculi seen bilaterally. Bilateral renal parap elvic cysts noted as well as renal cortical cyst. No distinct renal mass. Urinary bladder grossly un remarkable. BOWEL: Normal appendix. Normal bowel caliber. No inflammation. GENITAL ORGANS: Prostate gland enlargement identified. LYMPH NODES: No greater than 1cm abdominal or pelvic lymph nodes are appreciated. AORTA: No significant abnormality. OSSEOUS STRUCTURES: No significant abnormality is seen. OTHER: No significant additional abnormality is seen. IMPRESSION: 1. Left UPJ calculus measuring 5.2 mm resulting in moderate left-sided hydronephrosis. Mild perinephr ic stranding.
[2021-02-21] MEDS ORDERED: HYDROmorphone 0.5 MG/0.5 ML SYRINGE IVP PRN (09:32)
[2021-02-21] MEDS ORDERED: NALOXONE 0.4 MG/ML 1 ML VIAL IV PRN (09:32)
[2021-02-21] MEDS ORDERED: ONDANSETRON 4 MG/2 ML VIAL IVP PRN (09:32)
[2021-02-21] MEDS: SODIUM CHLORIDE 0.9% 1,000 ML IV SCH ×2 (09:44→23:11)
--- NOTE | 2021-02-21 15:28 | P.HPIM ---
History of Present Illness 80-year-old male came in with Complaints of Pain in the Left Lower Abdomen, Sharp Pain and Colicky Kind of Pain. Patient Is Found to Have 5.2 Mm Ureteropelvic Junction Stone on the Right Side. Patient was evaluated by urology in the recommending surgical intervention for this stone. Patient denied any dysuria, denied any fever suprapubic pain, UA is not significant for UTI. Patient has elevated creatinine of 1.35 baseline is close to that around 1.25 from 2019. Patient is on IV fluids. REVIEW OF SYSTEMS: CONSTITUTIONAL: No fever, no malaise, no fatigue. HEENT: No recent visual problems or hearing problems. Denied any sore throat. CARDIOVASCULAR: No chest pain, orthopnea, PND, no palpitations, no syncope. PULMONARY: No shortness of breath, no cough, no hemoptysis. GASTROINTESTINAL: No diarrhea, no nausea, no vomiting, no abdominal pain. NEUROLOGICAL: No headaches, no weakness, no numbness. HEMATOLOGICAL: Denies any bleeding or petechiae. GENITOURINARY: Denies any burning micturition, frequency, or urgency. MUSCULOSKELETAL/RHEUMATOLOGICAL: Denies any joint pain, swelling, or any muscle pain. ENDOCRINE: Denies any polyuria or polydipsia. The rest of the 14-point review of systems is negative. PHYSICAL EXAMINATION: GENERAL: The patient is alert and oriented x3, not in any acute distress. Obese HEENT: Pupils are round and equally reacting to light. EOMI. No scleral icterus. No conjunctival pallor. Normocephalic, atraumatic. No pharyngeal erythema. No thyromegaly. CARDIOVASCULAR: S1 and S2 present. No murmurs, rubs, or gallops. PULMONARY: Chest is clear to auscultation, no wheezing or crackles. ABDOMEN: Soft, nontender, nondistended, normoactive bowel sounds. No palpable organomegaly. MUSCULOSKELETAL: No joint swelling or deformity. EXTREMITIES: No cyanosis, clubbing, or pedal edema. NEUROLOGICAL: Gross neurological examination did not reveal any focal deficits. SKIN: No rashes. Assessment and plan -Left renal colic: Continue with IV fluids no evidence of urinary tract infection patient will not require any antibiotics further management as per urology. -Hypertension patient is on losartan which can be continued as a patient appears to have chronic kidney disease stage III rather than acute renal failure -Chronic kidney disease stage III probably hypertensive nephrosclerosis -Peripheral neuropathy: Continue with the pregabalin -Benign prostatic hypertrophy -Hyperlipidemia -DVT to prophylaxis with the subcutaneous heparin Past Medical History Past Medical History: Cancer, Hypertension, Myocardial Infarction ([place]), Prostate Disorder, Sleep Apnea/CPAP/BIPAP Additional Past Medical History / Comment(s): LEFT REAR SHOULDER MELANOMA REMOVED Last Myocardial Infarction Date:: 01/10/16 History of Any Multi-Drug Resistant Organisms: None Reported Past Surgical History: Adenoidectomy, Appendectomy, Orthopedic Surgery, Tonsi llectomy Additional Past Surgical History / Comment(s): Hand surg; prostate surg Past Anesthesia/Blood Transfusion Reactions: No Reported Reaction Past Psychological History: No Psychological Hx Reported Smoking Status: Never smoker Past Alcohol Use History: Occasional Past Drug Use History: None Reported - Past Family History Father Family Medical History: Hypertension, Renal Disease Mother Family Medical History: Myocardial Infarction ([place]) Medications and Allergies Home Medications Medication Instructions Recorded Confirmed Type Oxybutynin Chloride [Ditropan] 5 mg PO BID 01/11/16 02/21/21 History Atorvastatin [Lipitor] 80 mg PO HS #30 tab 01/13/16 02/21/21 Rx Metoprolol Tartrate [Lopressor] 25 mg PO BID #60 tab 01/13/16 02/21/21 Rx Nitroglycerin Sl Tabs [Nitrostat] 0.4 mg SUBLINGUAL Q5M PRN #25 tab 01/13/16 02/21/21 Rx Aspirin EC [Ecotrin Low Dose] 81 mg PO HS 03/25/18 02/21/21 History Cholecalciferol [Vitamin D3] 4,000 unit PO DAILY 03/25/18 02/21/21 History Fish Oil/Dha/Epa [Fish Oil 1,200 1 cap PO DAILY 03/25/18 02/21/21 History mg Fish Oil] Multivit-Min/FA/Lycopen/Lutein 1 tab PO DAILY 03/25/18 02/21/21 History [Centrum Silver Tablet] Tamsulosin [Flomax] 0.4 mg PO BID 03/25/18 02/21/21 History amLODIPine [Norvasc] 2.5 mg PO HS 03/25/18 02/21/21 History Irbesartan [Avapro] 150 mg PO DAILY 02/21/21 02/21/21 History Melatonin 10 mg PO HS 02/21/21 02/21/21 History Pregabalin [Lyrica] 75 mg PO DAILY 02/21/21 02/21/21 History Pregabalin [Lyrica] 150 mg PO HS 02/21/21 02/21/21 History Vit C/E/Zn/Coppr/Lutein/Zeaxan 1 cap PO BID 02/21/21 02/21/21 History [Preservision Areds 2 Softgel] Allergies Allergy/AdvReac Type Severity Reaction Status Date / Time No Known Allergies Allergy Verified 02/21/21 07:12 Physical Exam Vitals: Vital Signs Temp Pulse Resp BP Pulse Ox 02/21/21 13:19 68 16 141/84 93 L 02/21/21 11:05 65 16 141/85 93 L 02/21/21 09:20 74 18 144/80 96 02/21/21 08:21 97.4 F L 68 18 160/92 94 L 02/21/21 05:51 97.7 F 67 16 171/85 95 Intake and Output 02/21/21 02/21/21 02/21/21 06:59 14:59 22:59 Other: Weight 104.326 kg Results CBC & Chem 7: 02/21/21 06:14 02/21/21 06:14 Labs: Abnormal Lab Results - Last 24 Hours (Table) 02/21/21 02/21/21 02/21/21 Range/Units 06:14 06:14 06:14 Plt Count 108 L (150-450) k/uL Chloride 109 H (98-107) mmol/L BUN 31 H (9-20) mg/dL Creatinine 1.35 H (0.66-1.25) mg/dL Glucose 126 H (74-99) mg/dL Urine Protein 1+ H (Negative) Ur Leukocyte Esterase Trace H (Negative) Urine WBC 8 H (0-5) /hpf Urine Mucus Rare H (None) /hpf
[2021-02-21] MEDS: HEPARIN SODIUM,PORCINE/PF 5,000 UNIT/0.5 ML SYRINGE SQ SCH ×2 (18:08→23:09)
--- NOTE | 2021-02-21 18:12 | P.GSCN ---
History of Present Illness Consult date: 02/21/21 Reason for Consult: Left renal colic Requesting physician: Angela Hung History of present illness: The patient is an 80-year-old white male admitted with acute onset of lower abdominal pain. CT scan showed evidence of left hydronephrosis due to a 5 mm left UPJ calculus. He has experienced intractable pain which could not be controlled in the emergency room, and he was therefore admitted. Review of Systems - Constitutional Denies chills, Denies fever - Gastrointestinal Denies nausea, Denies vomiting - Genitourinary Reports flank pain, Reports kidney stones, Denies dysuria, Denies hematuria Past Medical History Past Medical History: Cancer, Hypertension, Myocardial Infarction ([place]), Prostate Disorder, Sleep Apnea/CPAP/BIPAP Additional Past Medical History / Comment(s): LEFT REAR SHOULDER MELANOMA REMOVED Last Myocardial Infarction Date:: 01/10/16 History of Any Multi-Drug Resistant Organisms: None Reported Past Surgical History: Adenoidectomy, Appendectomy, Orthopedic Surgery, Tonsillectomy Additional Past Surgical History / Comment(s): Hand surg; prostate surg Past Anesthesia/Blood Transfusion Reactions: No Reported Reaction Past Psychological History: No Psychological Hx Reported Smoking Status: Never smoker Past Alcohol Use History: Occasional Past Drug Use History: None Reported - Past Family History Father Family Medical History: Hypertension, Renal Disease Mother Family Medical History: Myocardial Infarction ([place]) Medications and Allergies Home Medications Medication Instructions Recorded Confirmed Type Oxybutynin Chloride [Ditropan] 5 mg PO BID 01/11/16 02/21/21 History Atorvastatin [Lipitor] 80 mg PO HS #30 tab 01/13/16 02/21/21 Rx Metoprolol Tartrate [Lopressor] 25 mg PO BID #60 tab 01/13/16 02/21/21 Rx Nitroglycerin Sl Tabs [Nitrostat] 0.4 mg SUBLINGUAL Q5M PRN #25 tab 01/13/16 02/21/21 Rx Aspirin EC [Ecotrin Low Dose] 81 mg PO HS 03/25/18 02/21/21 History Cholecalciferol [Vitamin D3] 4,000 unit PO DAILY 03/25/18 02/21/21 History Fish Oil/Dha/Epa [Fish Oil 1,200 1 cap PO DAILY 03/25/18 02/21/21 History mg Fish Oil] Multivit-Min/FA/Lycopen/Lutein 1 tab PO DAILY 03/25/18 02/21/21 History [Centrum Silver Tablet] Tamsulosin [Flomax] 0.4 mg PO BID 03/25/18 02/21/21 History amLODIPine [Norvasc] 2.5 mg PO HS 03/25/18 02/21/21 History Irbesartan [Avapro] 150 mg PO DAILY 02/21/21 02/21/21 History Melatonin 10 mg PO HS 02/21/21 02/21/21 History Pregabalin [Lyrica] 75 mg PO DAILY 02/21/21 02/21/21 History Pregabalin [Lyrica] 150 mg PO HS 02/21/21 02/21/21 History Vit C/E/Zn/Coppr/Lutein/Zeaxan 1 cap PO BID 02/21/21 02/21/21 History [Preservision Areds 2 Softgel] Allergies Allergy/AdvReac Type Severity Reaction Status Date / Time No Known Allergies Allergy Verified 02/21/21 07:12 Surgical - Exam Vital Signs Temp Pulse Resp BP Pulse Ox 97.7 F 67 16 171/85 95 02/21/21 05:51 02/21/21 05:51 02/21/21 05:51 02/21/21 05:51 02/21/21 05:51 - General well developed, well nourished, moderate distress - Neck no masses, trachea midline - Respiratory normal respiratory effort - Abdomen Abdomen: soft, non tender, no guarding, no rigid, no rebound - Genitourinary normal penis with no external lesions, testicles non-tender - Psychiatric oriented to time, oriented to person, oriented to place, speech is normal, memory intact Results - Labs 02/21/21 06:14 02/21/21 06:14 Abnormal Lab Results - Last 24 Hours (Table) 02/21/21 02/21/21 02/21/21 Range/Units 06:14 06:14 06:14 Plt Count 108 L (150-450) k/uL Chloride 109 H (98-107) mmol/L BUN 31 H (9-20) mg/dL Creatinine 1.35 H (0.66-1.25) mg/dL Glucose 126 H (74-99) mg/dL Urine Protein 1+ H (Negative) Ur Leukocyte Esterase Trace H (Negative) Urine WBC 8 H (0-5) /hpf Urine Mucus Rare H (None) /hpf Diabetes panel 02/21/21 Range/Units 06:14 Sodium 141 (137-145) mmol/L Potassium 4.2 (3.5-5.1) mmol/L Chloride 109 H (98-107) mmol/L Carbon Dioxide 27 (22-30) mmol/L BUN 31 H (9-20) mg/dL Creatinine 1.35 H (0.66-1.25) mg/dL Glucose 126 H (74-99) mg/dL Calcium 9.7 (8.4-10.2) mg/dL AST 30 (17-59) U/L ALT 23 (4-49) U/L Alkaline Phosphatase 80 (38-126) U/L Total Protein 6.5 (6.3-8.2) g/dL Albumin 3.9 (3.5-5.0) g/dL Calcium panel 02/21/21 Range/Units 06:14 Calcium 9.7 (8.4-10.2) mg/dL Albumin 3.9 (3.5-5.0) g/dL Pituitary panel 02/21/21 Range/Units 06:14 Sodium 141 (137-145) mmol/L Potassium 4.2 (3.5-5.1) mmol/L Chloride 109 H (98-107) mmol/L Carbon Dioxide 27 (22-30) mmol/L BUN 31 H (9-20) mg/dL Creatinine 1.35 H (0.66-1.25) mg/dL Glucose 126 H (74-99) mg/dL Calcium 9.7 (8.4-10.2) mg/dL Adrenal panel 02/21/21 Range/Units 06:14 Sodium 141 (137-145) mmol/L Potassium 4.2 (3.5-5.1) mmol/L Chloride 109 H (98-107) mmol/L Carbon Dioxide 27 (22-30) mmol/L BUN 31 H (9-20) mg/dL Creatinine 1.35 H (0.66-1.25) mg/dL Glucose 126 H (74-99) mg/dL Calcium 9.7 (8.4-10.2) mg/dL Total Bilirubin 0.4 (0.2-1.3) mg/dL AST 30 (17-59) U/L ALT 23 (4-49) U/L Alkaline Phosphatase 80 (38-126) U/L Total Protein 6.5 (6.3-8.2) g/dL Albumin 3.9 (3.5-5.0) g/dL - Imaging CT scan - abdomen: report reviewed, image reviewed Assessment and Plan (1) Calculus of ureter Current Visit: Yes Status: Acute Code(s): N20.1 - CALCULUS OF URETER SNOMED Code(s): 88923266 (2) Hydronephrosis with renal and ureteral calculous obstruction Current Visit: Yes Status: Acute Code(s): N13.2 - HYDRONEPHROSIS WITH RENAL AND URETERAL CALCULOUS OBSTRUCTION SNOMED Code(s): 436623224 Plan: The patient has been admitted for management of his intractable renal colic. He has been scheduled to undergo cystoscopy with left ureteral stent insertion. The rationale for this has been reviewed in detail. This should significantly improve his symptoms, and I anticipate he will subsequently be discharged home. Arrangements will then be made for him to undergo elective ureteroscopic removal of the calculus in 2-3 weeks. Potential risks associated with stent placement include anesthesia, infection, inability to successfully place the stent, and ureteral injury. Time with Patient: Greater than 30
[2021-02-21] MEDS ORDERED: SUCCINYLCHOLINE CHLORIDE 100 MG/5 ML SYR IV ONE (18:26)
[2021-02-21] MEDS ORDERED: LIDOCAINE 1% INJ 10MG/ML (20 ML MDV) ONE (18:26)
[2021-02-21] MEDS ORDERED: PROPOFOL 10 MG/ML 20 ML VIAL IV ONE (18:26)
[2021-02-21] MEDS ORDERED: LACTATED RINGERS 1,000 ML IV ONE (18:35)
--- NOTE | 2021-02-21 19:51 | P.OP ---
Date of Procedure: 02/21/21 Preoperative Diagnosis: Left ureteral calculus Postoperative Diagnosis: Same Procedure(s) Performed: Cystoscopy, left ureteral stent insertion Anesthesia: DREA Surgeon: Saqib Dan Estimated Blood Loss (ml): 0 IV fluids (ml): 300 Pathology: none sent Condition: stable Disposition: PACU Indications for Procedure: The patient is an 80-year-old white male admitted with acute onset of lower abdominal pain. CT scan showed evidence of left hydronephrosis due to a 5 mm left UPJ calculus. He has experienced intractable pain and now comes for stent placement. Operative Findings: Radio opaque left proximal ureteral calculus. Successful stent placement. Description of Procedure: The patient was taken to the operating room and placed in the dorsolithotomy position, with legs supported in Azar stirrups. The external genitalia was prepped and draped sterilely. The 30 lens was used to introduce the 22-Peruvian Stortz cystoscopic sheath through the urethra and into the bladder under direct vision. The prostatic urethra showed evidence of moderate lateral lobe enlargement along with a high median bar. The bladder was examined in its entirety. The left ureteral orifice was identified with some difficulty, as the trigone was partially obscured by the high median bar. No tumors or foreign bodies were seen. An angle-tip 0.035 inch Glidewire was passed through the cystoscope. The left ureteral orifice was cannulated, and the Glidewire was slowly advanced up to the renal pelvis. The calculus was noted to be radio opaque and located within the left proximal ureter. A 26 cm, 6-Peruvian double-J ureteral stent was placed over the wire. Proper stent positioning was verified fluoroscopically and endoscopically. The bladder was emptied and the cystoscope removed. The patient tolerated the procedure well was taken to the recovery room in stable condition.
[2021-02-21] MEDS ORDERED: amLODIPine 2.5 MG TAB PO SCH (21:00)
[2021-02-21] MEDS ORDERED: MELATONIN 5 MG TABLET PO SCH (21:00)
[2021-02-21] MEDS ORDERED: ASPIRIN 81 MG PO SCH (21:00)
[2021-02-21] MEDS ORDERED: PREGABALIN 75 MG CAP PO SCH (21:00)
[2021-02-21] MEDS ORDERED: ATORVASTATIN 80 MG TAB PO SCH (21:00)
[2021-02-21] MEDS: METOPROLOL TARTRATE 25 MG TAB PO SCH (21:27)
[2021-02-21] MEDS: OXYBUTYNIN CHLORIDE 5 MG TAB PO SCH (21:28)
[2021-02-21] MEDS: TAMSULOSIN 0.4 MG CAP.ER.24H PO SCH (21:28)
[2021-02-22] MEDS: HEPARIN SODIUM,PORCINE/PF 5,000 UNIT/0.5 ML SYRINGE SQ SCH (08:00)
[2021-02-22] MEDS: METOPROLOL TARTRATE 25 MG TAB PO SCH (08:00)
[2021-02-22] MEDS: OXYBUTYNIN CHLORIDE 5 MG TAB PO SCH (08:00)
[2021-02-22] MEDS: TAMSULOSIN 0.4 MG CAP.ER.24H PO SCH (08:00)
--- NOTE | 2021-02-22 08:14 | FL ---
Fluoroscopy INDICATION: Pain FINDINGS: Fluoroscopy time: 8 seconds. Images obtained: 1. IMPRESSIONS: 1. Documentation of fluoroscopy.
[2021-02-22 08:39] VITALS: BP 165/83; PULSE 56; RESP 18; TEMP 98.5
[2021-02-22] MEDS ORDERED: NON FORMULARY DRUG (Fish Oil/Dha/Epa [Fish Oil 1,200 Mg Fish Oil] 1 EACH Capsule) PO SCH (09:00)
[2021-02-22] MEDS ORDERED: LOSARTAN 50 MG TAB PO SCH (09:00)
[2021-02-22] MEDS ORDERED: CHOLECALCIFEROL 25 MCG (1000 IU) TABLET PO SCH (09:00)
[2021-02-22] MEDS ORDERED: PREGABALIN 75 MG CAP PO SCH (09:00)
[2021-02-22] MEDS: SODIUM CHLORIDE 0.9% 1,000 ML IV SCH (12:27)
--- NOTE | 2021-02-22 17:06 | P.DS ---
Providers Date of admission: 02/21/21 09:12 Attending physician: Angela Hung Consults: 02/21/21 09:33 Consult Physician Routine Consulting Provider: Saqib Dan Consult Reason/Comments: ureterolithiasis Do you want consulting provider notified?: Already Contacted Primary care physician: [facility] Hospital Course: 1-year-old male came in with Complaints of Pain in the Left Lower Abdomen, Sharp Pain and Colicky Kind of Pain. Patient Is Found to Have 5.2 Mm Ureteropelvic Junction Stone on the Right Side. Patient was evaluated by urology in the recommending surgical intervention for this stone. Patient denied any dysuria, denied any fever suprapubic pain, UA is not significant for UTI. Patient has elevated creatinine of 1.35 baseline is close to that around 1.25 from 2019. Patient is on IV fluids. 02/22/2021 Patient is status post left ureteral stent placement and patient is being discharged today pain completely resolved PHYSICAL EXAMINATION: GENERAL: The patient is alert and oriented x3, not in any acute distress. Obese HEENT: Pupils are round and equally reacting to light. EOMI. No scleral icterus. No conjunctival pallor. Normocephalic, atraumatic. No pharyngeal erythema. No thyromegaly. CARDIOVASCULAR: S1 and S2 present. No murmurs, rubs, or gallops. PULMONARY: Chest is clear to auscultation, no wheezing or crackles. ABDOMEN: Soft, nontender, nondistended, normoactive bowel sounds. No palpable organomegaly. MUSCULOSKELETAL: No joint swelling or deformity. EXTREMITIES: No cyanosis, clubbing, or pedal edema. NEUROLOGICAL: Gross neurological examination did not reveal any focal deficits. SKIN: No rashes. Assessment and plan -Left renal colic: Patient had a 5 mm stone status post ureteral stent and is being discharged today -Hypertension -Chronic kidney disease stage III probably hypertensive nephrosclerosis -Peripheral neuropathy: Continue with the pregabalin -Benign prostatic hypertrophy -Hyperlipidemia Patient Condition at Discharge: Stable Plan - Discharge Summary Discharge Rx Participant: Yes New Discharge Prescriptions: Continue Oxybutynin Chloride [Ditropan] 5 mg PO BID Atorvastatin [Lipitor] 80 mg PO HS #30 tab Metoprolol Tartrate [Lopressor] 25 mg PO BID #60 tab Nitroglycerin Sl Tabs [Nitrostat] 0.4 mg SUBLINGUAL Q5M PRN #25 tab PRN Reason: Chest Pain amLODIPine [Norvasc] 2.5 mg PO HS Aspirin EC [Ecotrin Low Dose] 81 mg PO HS Cholecalciferol [Vitamin D3 (25 Mcg = 1000 Iu)] 4,000 unit PO DAILY Fish Oil/Dha/Epa [Fish Oil 1,200 mg Fish Oil] 1 cap PO DAILY Multivit-Min/FA/Lycopen/Lutein [Centrum Silver Tablet] 1 tab PO DAILY Tamsulosin [Flomax] 0.4 mg PO BID Melatonin 10 mg PO HS Irbesartan [Avapro] 150 mg PO DAILY Pregabalin [Lyrica] 75 mg PO DAILY Pregabalin [Lyrica] 150 mg PO HS Vit C/E/Zn/Coppr/Lutein/Zeaxan [Preservision Areds 2 Softgel] 1 cap PO BID Discharge Medication List Oxybutynin Chloride [Ditropan] 5 mg PO BID 01/11/16 [History] Atorvastatin [Lipitor] 80 mg PO HS #30 tab 01/13/16 [Rx] Metoprolol Tartrate [Lopressor] 25 mg PO BID #60 tab 01/13/16 [Rx] Nitroglycerin Sl Tabs [Nitrostat] 0.4 mg SUBLINGUAL Q5M PRN #25 tab 01/13/16 [Rx] Aspirin EC [Ecotrin Low Dose] 81 mg PO HS 03/25/18 [History] Cholecalciferol [Vitamin D3 (25 Mcg = 1000 Iu)] 4,000 unit PO DAILY 03/25/18 [History] Fish Oil/Dha/Epa [Fish Oil 1,200 mg Fish Oil] 1 cap PO DAILY 03/25/18 [History] Multivit-Min/FA/Lycopen/Lutein [Centrum Silver Tablet] 1 tab PO DAILY 03/25/18 [History] Tamsulosin [Flomax] 0.4 mg PO BID 03/25/18 [History] amLODIPine [Norvasc] 2.5 mg PO HS 03/25/18 [History] Irbesartan [Avapro] 150 mg PO DAILY 02/21/21 [History] Melatonin 10 mg PO HS 02/21/21 [History] Pregabalin [Lyrica] 75 mg PO DAILY 02/21/21 [History] Pregabalin [Lyrica] 150 mg PO HS 02/21/21 [History] Vit C/E/Zn/Coppr/Lutein/Zeaxan [Preservision Areds 2 Softgel] 1 cap PO BID 02/21/21 [History] Follow up Appointment(s)/Referral(s): Mc Mukherjee DO [Primary Care Provider] - 3 Days (will call with an appointment) Saqib Dan MD [STAFF PHYSICIAN] - 1 Week (Office will call with appointment) Patient Instructions/Handouts: Ureteral Stones (DC), Ureteral Stent Placement (DC) Discharge Disposition: HOME SELF-CARE
== END 2021-02-22 12:40 | disposition home or self-care (01) ==
LOC: EC 05:50 → 6NMEDSUR 09:12 → 4SSUR 16:22
PROVIDERS: ADMIT Internal Medicine; ATTEND Internal Medicine
DX: N13.2 Hydronephrosis with renal and ureteral calculous obstruction (principal); I12.9 Hypertensive chronic kidney disease with stage 1 through stage 4 chronic kidney disease, or unspecified chronic kidney disease; N18.30 Chronic kidney disease, stage 3 unspecified; Z20.822 Contact with and (suspected) exposure to COVID-19; N40.0 Benign prostatic hyperplasia without lower urinary tract symptoms; E78.5 Hyperlipidemia, unspecified; I25.2 Old myocardial infarction; G62.9 Polyneuropathy, unspecified; G47.30 Sleep apnea, unspecified; I71.4 Abdominal aortic aneurysm, without rupture; Z79.899 Other long term (current) drug therapy; Z90.49 Acquired absence of other specified parts of digestive tract; Z85.820 Personal history of malignant melanoma of skin; Z82.49 Family history of ischemic heart disease and other diseases of the circulatory system
CPT/HCPCS: 52332; 96376; 96361; 96374; 96375; 99285; 36415; 86900; 86901; 80053; 82150; 83605; 83690; 85025; 86850; 81001; 87086; 87635; 74177; G0378 ×3; C2625; C1769; C1758; J2405; J2001; J0330; J2704; J1170; Q9967; J1644 ×2; 93005

== ENCOUNTER 2021-03-09 06:15 | Day surgery (SDC) | payer MEDICARE ==
--- NOTE | 2021-03-05 21:31 | P.GSHP ---
History of Present Illness H&P Date: 03/05/21 Chief Complaint: Left renal colic The patient is an 80-year-old white male recently hospitalized with left renal colic due to a 5 mm left UPJ calculus. The CT scan also showed bilateral tiny renal calculi. He underwent left ureteral stent insertion on 02/21/2021. - Constitutional Constitutional: Denies chills, Denies fever - Gastrointestinal Gastrointestinal: Denies nausea, Denies vomiting - Genitourinary (Male) Genitourinary: Reports flank pain, Reports kidney stones Past Medical History Past Medical History: Cancer, Hypertension, Myocardial Infarction ([place]), Prostate Disorder, Sleep Apnea/CPAP/BIPAP Additional Past Medical History / Comment(s): LEFT REAR SHOULDER MELANOMA REMOVED Last Myocardial Infarction Date:: 01/10/16 History of Any Multi-Drug Resistant Organisms: None Reported Past Surgical History: Adenoidectomy, Appendectomy, Orthopedic Surgery, Tonsillectomy Additional Past Surgical History / Comment(s): Hand surg; prostate surg Past Anesthesia/Blood Transfusion Reactions: No Reported Reaction Past Psychological History: No Psychological Hx Reported Smoking Status: Never smoker Past Alcohol Use History: Occasional Past Drug Use History: None Reported - Past Family History Father Family Medical History: Hypertension, Renal Disease Mother Family Medical History: Myocardial Infarction ([place]) Medications and Allergies Home Medications Medication Instructions Recorded Confirmed Type Oxybutynin Chloride [Ditropan] 5 mg PO BID 01/11/16 02/21/21 History Atorvastatin [Lipitor] 80 mg PO HS #30 tab 01/13/16 02/21/21 Rx Metoprolol Tartrate [Lopressor] 25 mg PO BID #60 tab 01/13/16 02/21/21 Rx Nitroglycerin Sl Tabs [Nitrostat] 0.4 mg SUBLINGUAL Q5M PRN #25 tab 01/13/16 02/21/21 Rx Aspirin EC [Ecotrin Low Dose] 81 mg PO HS 03/25/18 02/21/21 History Cholecalciferol [Vitamin D3 (25 4,000 unit PO DAILY 03/25/18 02/21/21 History Mcg = 1000 Iu)] Fish Oil/Dha/Epa [Fish Oil 1,200 1 cap PO DAILY 03/25/18 02/21/21 History mg Fish Oil] Multivit-Min/FA/Lycopen/Lutein 1 tab PO DAILY 03/25/18 02/21/21 History [Centrum Silver Tablet] Tamsulosin [Flomax] 0.4 mg PO BID 03/25/18 02/21/21 History amLODIPine [Norvasc] 2.5 mg PO HS 03/25/18 02/21/21 History Irbesartan [Avapro] 150 mg PO DAILY 02/21/21 02/21/21 History Melatonin 10 mg PO HS 02/21/21 02/21/21 History Pregabalin [Lyrica] 75 mg PO DAILY 02/21/21 02/21/21 History Pregabalin [Lyrica] 150 mg PO HS 02/21/21 02/21/21 History Vit C/E/Zn/Coppr/Lutein/Zeaxan 1 cap PO BID 02/21/21 02/21/21 History [Preservision Areds 2 Softgel] Allergies Allergy/AdvReac Type Severity Reaction Status Date / Time No Known Allergies Allergy Verified 02/21/21 07:12 Surgical - Exam - General well developed, well nourished, no distress - Neck no masses, trachea midline - Respiratory normal respiratory effort - Abdomen Abdomen: soft, non tender, no guarding, no rigid, no rebound - Genitourinary normal penis with no external lesions, testicles non-tender - Psychiatric oriented to time, oriented to person, oriented to place, speech is normal, memory intact Assessment and Plan (1) Calculus of ureter Status: Acute Code(s): N20.1 - CALCULUS OF URETER SNOMED Code(s): 37488484 Plan: Cystoscopy, left ureteral stent removal, left ureteroscopy with Holmium laser lithotripsy. The procedure has been reviewed in detail with the patient. He is aware of potential risks, which include anesthesia, infection, and ureteral injury.
[2021-03-08 10:54] VITALS: BMI 33.0
[~2021-03-09 06:15] MED LIST: HYDROmorphone 0.5 MG/0.5 ML SYRINGE IVP PRN; LACTATED RINGERS 1,000 ML IV SCH; ONDANSETRON 4 MG/2 ML VIAL IVP ONE
[2021-03-09] MEDS ORDERED: DEXAMETHASONE SOD PHOSPHATE 4 MG/ML 1 ML VIAL IV ONE (07:01)
--- NOTE | 2021-03-09 07:16 | XR ---
EXAMINATION TYPE: XR KUB DATE OF EXAM: 03/09/2021 6:32 AM CLINICAL HISTORY: Kidney stones TECHNIQUE: Single supine KUB image of the abdomen is obtained. COMPARISON: CT 02/21/2021. FINDINGS: Scattered gas is seen in non-distended small bowel loops. Gas and fecal material is seen in non-distended colon. Bowel contents obscure the renal shadows. There is a left ureteral stent. Calci fications in the pelvis most likely represent phleboliths. IMPRESSION: Left ureteral stent. Overall nonobstructive bowel gas pattern.
[2021-03-09] MEDS ORDERED: ePHEDrine SULFATE/0.9% NACL/PF 50 MG/5 ML SYRINGE IV ONE (07:39)
[2021-03-09] MEDS ORDERED: fentaNYL (PF) 50 MCG/ML 2 ML AMP ONE (07:39)
[2021-03-09] MEDS ORDERED: ROCURONIUM 10 MG/ML (5 ML VIAL) IV ONE (07:39)
[2021-03-09] MEDS ORDERED: SUCCINYLCHOLINE CHLORIDE 100 MG/5 ML SYR IV ONE (07:39)
[2021-03-09] MEDS ORDERED: MIDAZOLAM 2 MG/2 ML VIAL ONE (07:39)
[2021-03-09] MEDS ORDERED: LIDOCAINE 1% INJ 10MG/ML (20 ML MDV) ONE (07:39)
[2021-03-09] MEDS ORDERED: PROPOFOL 10 MG/ML 20 ML VIAL IV ONE (07:39)
[2021-03-09 08:44] VITALS: TEMP 97.4
--- NOTE | 2021-03-09 08:46 | P.OP ---
Date of Procedure: 03/09/21 Preoperative Diagnosis: Left Ureteral Calculus Postoperative Diagnosis: Same Procedure(s) Performed: Cystoscopy, left ureteral stent removal, left ureteroscopy with Holmium laser lithotripsy and stone basketing Anesthesia: DREA Surgeon: Saqib Dan Estimated Blood Loss (ml): 0 IV fluids (ml): 500 Pathology: other Condition: stable Disposition: PACU Indications for Procedure: The patient is an 80-year-old white male recently hospitalized with left renal colic due to a 5 mm left UPJ calculus. The CT scan also showed bilateral tiny renal calculi. He underwent left ureteral stent insertion on 02/21/2021. Operative Findings: Excellent fragmentation of calculus. Description of Procedure: The patient was taken to the operating room and placed in the dorsolithotomy position, with legs supported in Azar stirrups. The external genitalia was prepped and draped sterilely. The 30 lens was used to introduce the 21-Latvian Bruce cystoscopic sheath through the urethra and into the bladder under direct vision. The prostatic urethra showed evidence of mild lateral lobe enlargement. The bladder was examined in its entirety and was unremarkable. Grasping forceps were used to grasp the distal end of the left ureteral stent, which was removed along with the cystoscope. A 0.035 inch Glidewire was passed through the stent and up to the left renal pelvis. The Bruce Boa flexible ureteroscope was passed over the wire, up to the mid ureter. The ureteroscope was advanced under direct vision up to the calculus. The 200 micron Holmium laser probe was passed through the ureteroscope, and lithotripsy was performed. The calculus was dense, likely composed of calcium oxalate monohydrate. Lithotripsy was continued until there were no residual calculus fragments exceeding 1 mm. A 1.9-Latvian nitinol basket was used to grasp one of the larger fragments, which was removed along with the ureteroscope. This measured only 1 mm in size, and was sent for chemical analysis. The ureteroscope was passed into the bladder, but the ureteral orifice could not be identified. At that point, the decision was made not to place a ureteral access catheter sheath but rather to terminate the procedure, given that there was no evidence of ureteral trauma and all calculus fragments were small enough to pass readily. The patient tolerated the procedure well and was taken to the recovery room in stable condition. [facility] [place] Report: Procedure Acuity: Elective Stone Size and Location: 5 mm, left proximal ureter Ureteral Dilation: No Ureteral Access Sheath Used: No Stone Sent for Analysis: Yes All Stones/Fragments Were Removed with a Basket: No Complications: No Preoperative Antibiotics Given: Yes Stent Placed: No
--- NOTE | 2021-03-09 08:54 | FL ---
Fluoroscopy INDICATION: Pain FINDINGS: Fluoroscopy time: 18 seconds. Images obtained: 1. IMPRESSIONS: 1. Documentation of fluoroscopy.
[2021-03-09 09:51] VITALS: BP 134/79; PULSE 70; RESP 14
== END 2021-03-09 10:44 | disposition home or self-care (01) ==
LOC: OR 06:15
PROVIDERS: ATTEND Urology
DX: N20.2 Calculus of kidney with calculus of ureter (principal); Z87.442 Personal history of urinary calculi; I10 Essential (primary) hypertension; I25.2 Old myocardial infarction; G47.33 Obstructive sleep apnea (adult) (pediatric); N28.9 Disorder of kidney and ureter, unspecified; Z85.820 Personal history of malignant melanoma of skin
CPT/HCPCS: 52356; 76000; 82365; 74018; C1769; J2250; J1100; J0690; J2405; J2001; J3010; J0330; J2704

== ENCOUNTER → 2021-05-10 | Outpatient (CLI) | payer MEDICARE ==
--- NOTE | 2021-05-11 08:01 | US ---
EXAMINATION TYPE: US kidneys/renal and bladder DATE OF EXAM: 05/10/2021 COMPARISON: CT 02/21/2021 CLINICAL HISTORY: 80-year-old male N20.1 CALCULUS OF URETER. EXAM MEASUREMENTS: Right Kidney: 12.4 x 5.3 x 5.6 cm Left Kidney: 13.7 x 5.6 x 6.7 cm Right Kidney: Several small cysts, largest measures 1.7 x 1.8 x 2.3 cm lower pole. Prominent fluid at the region of the renal pelvis appears to correspond to the parapelvic cyst seen on CT. No calyceal dilatation to suggest hydronephrosis. Left Kidney: several small cysts, largest measures 1.4 x 1.4 x 1.6 cm. Moderate hydronephrosis noted. Bladder: wnl Bilateral Jets seen: No Incidental note is made of prominent prostate with soft tissue from the median lobe protruding into the bladder base. IMPRESSION: 1. Unable to exclude moderate left-sided hydronephrosis. 2. The presence of parapelvic cysts on the right makes assessment difficult. However, the lack of devin yceal dilatation argues against any hydronephrosis on the right. 3. Prostatomegaly/BPH. A hypertrophied median lobe protrudes into the bladder base.
== END | disposition home or self-care (01) ==
LOC: RADUSWWP 15:39
PROVIDERS: ATTEND Urology
DX: N20.1 Calculus of ureter (principal); N28.1 Cyst of kidney, acquired
CPT/HCPCS: 76770

== ENCOUNTER 2021-08-20 03:24 | Observation (INO) | payer MEDICARE ==
[2021-08-20 04:05] LABS: Basophils # (A) 0.1 k/uL (0-0.2); Basophils % (A) 1 %; Eosinophils # (A) 0.2 k/uL (0-0.7); Eosinophils % (A) 2 %; HCT 44.2 % (39.0-53.0); Lymphocytes # (A) 1.6 k/uL (1.0-4.8); Lymphocytes % (A) 16 %; MCH 31.2 pg (25.0-35.0); MCHC 31.6 g/dL (31.0-37.0); MCV 98.7 fL (80.0-100.0); Mean Platelet Volume 8.4; Monocytes # (A) 0.7 k/uL (0-1.0); Monocytes % (A) 7 %; Neutrophils # (A) 7.1 k/uL (1.3-7.7); Neutrophils % (A) 72 %; Platelet Count 130 k/uL (150-450); RBC 4.47 m/uL (4.30-5.90); RDW 12.5 % (11.5-15.5); WBC 9.9 k/uL (3.8-10.6)
--- NOTE | 2021-08-20 04:06 | XR ---
EXAMINATION TYPE: XR chest 2V DATE OF EXAM: 08/20/2021 COMPARISON: 01/10/2016 HISTORY: Chest pain TECHNIQUE: FINDINGS: Heart and mediastinum are normal. Lungs are clear. Diaphragm is normal. Bony thorax appears normal. IMPRESSION: Normal chest.
[2021-08-20 04:15] LABS: Partial Thromboplastin Time 24.7 sec (22.0-30.0); Prothrombin Time 10.5 sec (9.0-12.0)
[2021-08-20 04:16] LABS: Albumin 3.5 g/dL (3.5-5.0); Calcium 9.1 mg/dL (8.4-10.2); Magnesium 2.1 mg/dL (1.6-2.3); Potassium 4.1 mmol/L (3.5-5.1); Total Bilirubin 0.4 mg/dL (0.2-1.3)
[2021-08-20] MEDS ORDERED: NITROGLYCERIN SL TABS 0.4 MG TAB SUBLINGUAL PRN ×2 (06:33→11:14)
--- NOTE | 2021-08-20 06:40 | ED ---
Chest Pain HPI - General Chief Complaint: Chest Pain Stated Complaint: Chest pain Time Seen by Provider: 08/20/21 03:35 Source: family, EMS Mode of arrival: EMS Limitations: no limitations - History of Present Illness Initial Comments: Shouldn't is an 81-year-old man who presents with low sternal pain that he states feels like a tight band around him. He states that it had come on tonight while he was in bed. He was feeling nauseated and somewhat short of breath. When the symptoms did not subside he called EMS. He had taken 2 nitroglycerin at home without any effect but then he was given IV nitroglycerin by EMS and the symptoms resolved. MD Complaint: chest pain -: hour(s) Onset: during rest Pain Location: substernal Pain Radiation: none Severity: moderate Quality: tightness Consistency: constant Improves With: nothing Worsens With: nothing Anginal Symptoms: nausea, diaphoresis Treatments Prior to Arrival: nitroglycerin - Related Data Home Medications Medication Instructions Recorded Confirmed Oxybutynin Chloride [Ditropan] 5 mg PO BID 01/11/16 08/20/21 Aspirin EC [Ecotrin Low Dose] 81 mg PO HS 03/25/18 08/20/21 Cholecalciferol [Vitamin D3 (25 100 mcg PO DAILY 03/25/18 08/20/21 Mcg = 1000 Iu)] Fish Oil/Dha/Epa [Fish Oil 1,200 1 cap PO DAILY 03/25/18 08/20/21 mg Fish Oil] Multivit-Min/FA/Lycopen/Lutein 1 tab PO DAILY 03/25/18 08/20/21 [Centrum Silver Tablet] Tamsulosin [Flomax] 0.4 mg PO BID 03/25/18 08/20/21 Irbesartan [Avapro] 150 mg PO DAILY 02/21/21 08/20/21 Melatonin 10 mg PO HS PRN 02/21/21 08/20/21 Vit C/E/Zn/Coppr/Lutein/Zeaxan 1 cap PO BID 02/21/21 08/20/21 [Preservision Areds 2 Softgel] Nitroglycerin Sl Tabs [Nitrostat] 0.4 mg SL Q5M PRN 08/20/21 08/20/21 Previous Rx's Medication Instructions Recorded Atorvastatin [Lipitor] 80 mg PO HS #30 tab 01/13/16 Metoprolol Tartrate [Lopressor] 25 mg PO BID #60 tab 01/13/16 amLODIPine [Norvasc] 5 mg PO HS #30 tab 08/21/21 Allergies Allergy/AdvReac Type Severity Reaction Status Date / Time No Known Allergies Allergy Verified 08/20/21 07:26 Review of Systems ROS Statement: Those systems with pertinent positive or pertinent negative responses have been documented in the HPI. ROS Other: All systems not noted in ROS Statement are negative. Constitutional: Denies: fever, chills Respiratory: Reports: dyspnea. Denies: cough Cardiovascular: Reports: chest pain. Denies: palpitations, orthopnea, edema, syncope Gastrointestinal: Reports: nausea. Denies: abdominal pain, vomiting, diarrhea Genitourinary: Denies: dysuria, hematuria Musculoskeletal: Denies: back pain Skin: Denies: rash Neurological: Denies: headache, weakness, numbness EKG Findings - EKG Comments: EKG Findings:: Possible anterolateral infarct - EKG Results: EKG: sinus rhythm EKG shows: bradycardia (Rate 54 bpm) - Blocks, Novelty, Hypertrophy, ST Abn: QRS axis and voltage: left axis deviation (-30 to -90) - NH, Pacemaker, Normal: Myocardial infarction: inferior NH (old age indeterminate) Past Medical History Past Medical History: Cancer, Hyperlipidemia, Hypertension, Myocardial Infarction ([place]), Prostate Disorder, Sleep Apnea/CPAP/BIPAP Additional Past Medical History / Comment(s): kidney stones,LEFT REAR SHOULDER MELANOMA REMOVED Last Myocardial Infarction Date:: 01/10/16 History of Any Multi-Drug Resistant Organisms: None Reported Past Surgical History: Adenoidectomy, Appendectomy, Orthopedic Surgery, Tonsillectomy Additional Past Surgical History / Comment(s): Hand surg; prostate surg Past Anesthesia/Blood Transfusion Reactions: No Reported Reaction Past Psychological History: No Psychological Hx Reported Smoking Status: Never smoker Past Alcohol Use History: Occasional Past Drug Use History: None Reported - Past Family History Father Family Medical History: Hypertension, Renal Disease Mother Family Medical History: Myocardial Infarction ([place]) General Exam Limitations: no limitations Course Vital Signs 08/20/21 08/20/21 08/20/21 03:25 03:33 05:16 Temperature 97.9 F Pulse Rate 55 L 55 L 54 L Respiratory 18 18 18 Rate Blood Pressure 140/76 130/71 149/81 O2 Sat by Pulse 95 94 L 97 Oximetry 08/20/21 07:40 Temperature 98 F Pulse Rate 61 Respiratory 18 Rate Blood Pressure 164/71 O2 Sat by Pulse 97 Oximetry Chest Pain MDM - MDM 's patient is an 81-year-old man who presents with chest pain that he states is similar though less intense to the pain he experienced approximately 3 years ago with an NH that required stent placement. He did have nitroglycerin by EMS that seem to relieve his symptoms. Therefore will admit patient for serial cardiac enzymes, telemetry monitoring, cardiology consultation. Disposition Clinical Impression: Chest pain Disposition: ADMITTED IP TO THIS HOSP Condition: Good Is patient prescribed a controlled substance at d/c from ED?: No
[2021-08-20] MEDS ORDERED: ONDANSETRON 4 MG/2 ML VIAL IVP STA (07:54)
[2021-08-20] MEDS ORDERED: MELATONIN 5 MG TABLET PO PRN (11:14)
[2021-08-20] MEDS ORDERED: LOSARTAN 50 MG TAB PO SCH (11:30)
[2021-08-20] MEDS: LOSARTAN 50 MG TAB PO SCH (11:32)
[2021-08-20] MEDS: METOPROLOL TARTRATE 25 MG TAB PO SCH ×2 (11:33→22:37)
[2021-08-20] MEDS: amLODIPine 5 MG TAB PO SCH ×2 (11:33→22:36)
[2021-08-20] MEDS: SODIUM CHLORIDE 0.9% 1,000 ML IV SCH (11:55)
--- NOTE | 2021-08-20 13:07 | CONS ---
CONSULTATION HISTORY OF PRESENT ILLNESS: This is an 81-year-old gentleman with a known history of CAD, prior inferior PR and PCI of RCA performed in December 2015. He also has hypertension and hyperlipidemia. He sees Dr. Earl in the outpatient setting. He came into the hospital with complaints of having pressure in his chest. He apparently saw Dr. Earl 4 months ago and had a stress test about more than a year ago. His discomfort was in the mid/low sternal area, felt like a band around it and also a sensation of heaviness. The symptoms seemed to come on almost at rest without any activity. He also had some brief amount of nausea. He took some nitroglycerin without much relief and he came into the hospital. His blood pressure was fairly decent when he came in, but now the pressure is elevated. His symptoms have improved. His initial 2 sets of troponins are normal. He is resting comfortably at the time of my evaluation. He also has an ascending aortic dilatation of about 4.3 cm based on a CT angio in 2018. His blood pressure is about 160/90. He is asymptomatic. His recent EKG reveals evidence of old inferior PR. No acute changes. Chest x-ray revealed no significant abnormalities. His 2 sets of troponins are normal. His renal function is also within normal limits. PAST MEDICAL HISTORY: 1. CAD with prior inferior PR and PCI of RCA with intermediate disease in the LAD. 2. Hypertension. 3. Hyperlipidemia. 4. Ascending aortic dilatation of 4.3 cm based on the CT angio more than 2 years ago. MEDICATIONS: Medications at home include: Amlodipine 2.5 mg daily, Flomax, metoprolol tartrate 25 mg b.i.d., Avapro 150 mg daily, atorvastatin 80 mg daily, aspirin 81 mg daily. ALLERGIES: None. REVIEW OF SYSTEMS: Unremarkable other than above-mentioned facts. EXAMINATION: Blood pressure is 164/71, pulse rate is about 60 per minute, regular. HEENT unremarkable. Fundus was not examined by me. NECK is supple. There is no JVD. I do not hear a carotid bruit. HEART exam reveals S1, S2 heard normally. There is a short systolic murmur at the base, but second heart sound is preserved. LUNGS are clear. ABDOMEN is soft, nontender. Lower EXTREMITIES reveal normal pulses. No edema. CENTRAL NERVOUS SYSTEM is normal. EKG revealed sinus bradycardia, poor R-wave progression, old inferior myocardial infarction, no acute changes. IMPRESSION: 1. Chest pain syndrome with negative troponins. Quality of pain seems atypical. The patient has known CAD, prior PCI. 2. History of ascending aortic aneurysm of 4.3 cm with persistent chest pressure and moderate blood pressure elevation. Rule out any aortic pathology. 3. Hypertension. 4. Hyperlipidemia. RECOMMENDATIONS: I am recommending that we resume all his medications particularly antihypertensives in the form of metoprolol and amlodipine and also switch his to losartan. I will hydrate him and proceed with a CT angio of the chest to rule out any ascending aortic pathology. If these are negative, we will consider a stress test either while he is in the hospital or as an outpatient. Additional troponin also will be ordered. I discussed my thoughts in detail with the patient. Thank you very much for the consult. TANA / YRN: [id number] /
--- NOTE | 2021-08-20 14:24 | CT ---
EXAMINATION TYPE: CT angio chest DATE OF EXAM: 08/20/2021 12:49 PM COMPARISON: 03/11/2019 and 02/21/2021 HISTORY: Chest pain CT DLP: 905.8 mGycm Automated exposure control for dose reduction was used. CONTRAST: CTA scan of the thorax is performed without and with IV Contrast, patient injected with 80 mL of Isov ue 370, FINDINGS: There is mild respiratory motion which limits evaluation for small lung nodules. Minimal bibasilar subsegmental atelectasis. No lung mass or significant nodules seen. No pneumothorax or effusion. No mediastinal or hilar adenopathy. The trachea and bronchial tree are patent. The heart is normal in size and there is no effusion in the pericardium. Coronary arterial calcificat ions seen. Main pulmonary trunk diameter 2.8 cm. Ascending thoracic aorta diameter 4.7 x 4.4 cm (previously 4.3 x 4.6 cm). No filling defects are seen in the main pulmonary artery, right or left pulmonary arteries . Degenerative changes are seen in the spine. No acute osseous abnormality seen. There is a calculus in the gallbladder neck. Low-attenuation the bilateral renal dawit may represent dilated collecting system, cyst or extrarenal pelvis. Atherosclerotic calcification seen in the abdominal aorta. IMPRESSION: ESSENTIALLY UNCHANGED DIAMETER OF THE DESCENDING AORTA 4.7 X 4.4 CM PREVIOUSLY 0.6 X 4.3 CM. TINY CALCULUS IN THE GALLBLADDER NECK, PREVIOUSLY WAS SEEN IN THE LUMEN
[2021-08-20] MEDS ORDERED: amLODIPine 5 MG TAB PO STA (16:19)
--- NOTE | 2021-08-20 19:49 | P.HPIM ---
History of Present Illness H&P Date: 08/20/21 Chief Complaint: Chest pain This is a pleasant 81-year-old patient, follows Dr. Mukherjee. Rig Hand Dr. Tsang. Chronic stable medical conditions include hyperlipidemia, hypertension, SLEEP apnea, kidney stones, CAD with stent of the RCA in December 2015. Patient started off yesterday late evening pain what he described in the solar plexus area. It felt like a tight belt. Some nausea. No dizziness no lightheadedness no perspiration no radiation. It lasted for a few hours. Patient otherwise normally quite active. Decided to come to the ER. Admitted with the diagnosis of unstable angina. Review of systems: GEN.: Tired EYES: None HEENT: None NECK: None RESPIRATORY: None CARDIOVASCULAR: As above GASTROINTESTINAL: None GENITOURINARY: None MUSCULOSKELETAL: None LYMPHATICS: None HEMATOLOGICAL: None PSYCHIATRY: None NEUROLOGICAL: None Past medical history to include: Hyperlipidemia lipidemia, hypertension, CAD with stent in 2016 to RCA, prostate disorder, kidney stones Social history: Alcohol occasionally. Nonsmoker. Family history: Hypertension, renal disease Physical examination: VITAL SIGNS: 97.9, 55, 18, 140/76, 95% on room air GENERAL: BMI 30.8, declining bed, awake, comfortable. EYES: Pupils equal. Conjunctiva normal. HEENT: External appearance of nose and ears normal, oral cavity grossly normal. NECK: JVD not raised; masses not palpable. HEART: First and second heart sounds are normal; no edema. LUNGS: Respiratory rate normal; clear to auscultation. ABDOMEN: Soft, nontender, liver spleen not palpable, no masses palpable. PSYCH: Alert and oriented x3; mood and affect normal. NEUROLOGICAL: Cranial nerves grossly intact; no facial asymmetry, power and sensation grossly intact. LYMPHATICS: No lymph nodes palpable in the axilla and neck INVESTIGATIONS, reviewed in the clinical context: White count 9.9 hemoglobin 14 platelets 1:30 potassium 4.1 BUN 31 creatinine 1.18 Troponin I 3 negative Amylase/lipase: Normal Coronavirus [PCR]: Not detected EKG tracing personally reviewed by me-normal sinus rhythm. Rate 54. Q waves in inferior leads Chest x-ray film personally reviewed by me-lungs clear. Elevated right diaphragm Chest CTA: Essentially unchanged time due to the descending aorta 4.7 x 4.4 cm. Assessment and plan: -Possible unstable angina in a patient with known CAD. Troponins are negative. EKG nonspecific. Cardiology consulted. -CAD with a prior history of stent to the RCA in 2016 Aspirin 81 mg, Lipitor 80 mg, Lopressor 25 mg twice a day -Essential hypertension Amlodipine 2.5 mg daily at bedtime, Lopressor 25 mg twice a day, Avapro 150 mg daily, -Hyperlipidemia Lipitor 80 mg daily at bedtime -Chronic bladder dysfunction/incontinence Flomax 0.4 mg twice a day, Ditropan 5 mg twice a day -Chronic insomnia Melatonin 10 mg daily at bedtime when necessary Home medications resumed. Telemetry. Cardiology consulted. Care was discussed with the patient. Past Medical History Past Medical History: Cancer, Hyperlipidemia, Hypertension, Myocardial Infarction ([place]), Prostate Disorder, Sleep Apnea/CPAP/BIPAP Additional Past Medical History / Comment(s): kidney stones,LEFT REAR SHOULDER MELANOMA REMOVED Last Myocardial Infarction Date:: 01/10/16 History of Any Multi-Drug Resistant Organisms: None Reported Past Surgical History: Adenoidectomy, Appendectomy, Orthopedic Surgery, Tonsillectomy Additional Past Surgical History / Comment(s): Hand surg; prostate surg Past Anesthesia/Blood Transfusion Reactions: No Reported Reaction Past Psychological History: No Psychological Hx Reported Smoking Status: Never smoker Past Alcohol Use History: Occasional Past Drug Use History: None Reported - Past Family History Father Family Medical History: Hypertension, Renal Disease Mother Family Medical History: Myocardial Infarction ([place]) Medications and Allergies Home Medications Medication Instructions Recorded Confirmed Type Oxybutynin Chloride [Ditropan] 5 mg PO BID 01/11/16 08/20/21 History Atorvastatin [Lipitor] 80 mg PO HS #30 tab 01/13/16 08/20/21 Rx Metoprolol Tartrate [Lopressor] 25 mg PO BID #60 tab 01/13/16 08/20/21 Rx Aspirin EC [Ecotrin Low Dose] 81 mg PO HS 03/25/18 08/20/21 History Cholecalciferol [Vitamin D3 (25 100 mcg PO DAILY 03/25/18 08/20/21 History Mcg = 1000 Iu)] Fish Oil/Dha/Epa [Fish Oil 1,200 1 cap PO DAILY 03/25/18 08/20/21 History mg Fish Oil] Multivit-Min/FA/Lycopen/Lutein 1 tab PO DAILY 03/25/18 08/20/21 History [Centrum Silver Tablet] Tamsulosin [Flomax] 0.4 mg PO BID 03/25/18 08/20/21 History amLODIPine [Norvasc] 2.5 mg PO HS 03/25/18 08/20/21 History Irbesartan [Avapro] 150 mg PO DAILY 02/21/21 08/20/21 History Melatonin 10 mg PO HS PRN 02/21/21 08/20/21 History Vit C/E/Zn/Coppr/Lutein/Zeaxan 1 cap PO BID 02/21/21 08/20/21 History [Preservision Areds 2 Softgel] Nitroglycerin Sl Tabs [Nitrostat] 0.4 mg SL Q5M PRN 08/20/21 08/20/21 History Allergies Allergy/AdvReac Type Severity Reaction Status Date / Time No Known Allergies Allergy Verified 08/20/21 07:26 Physical Exam Vitals: Vital Signs Temp Pulse Pulse Resp BP BP BP 08/20/21 14:39 98.3 F 53 L 17 172/81 08/20/21 14:00 17 08/20/21 09:09 97.6 F 89 17 188/95 08/20/21 07:40 98 F 61 18 164/71 08/20/21 05:16 54 L 18 149/81 08/20/21 03:33 55 L 18 130/71 08/20/21 03:25 97.9 F 55 L 18 140/76 Pulse Ox 08/20/21 14:39 96 08/20/21 14:00 08/20/21 09:09 95 08/20/21 07:40 97 08/20/21 05:16 97 08/20/21 03:33 94 L 08/20/21 03:25 95 Intake and Output 08/19/21 08/20/21 08/20/21 22:59 06:59 14:59 Other: # Voids 2 Weight 97.522 kg 97.522 kg Results CBC & Chem 7: 08/20/21 03:50 08/20/21 03:50 Labs: Abnormal Lab Results - Last 24 Hours (Table) 08/20/21 08/20/21 Range/Units 03:50 03:50 Plt Count 130 L (150-450) k/uL BUN 31 H (9-20) mg/dL Glucose 130 H (74-99) mg/dL Total Protein 6.0 L (6.3-8.2) g/dL
[2021-08-20] MEDS ORDERED: amLODIPine 5 MG TAB PO SCH (21:00)
[2021-08-20] MEDS ORDERED: ASPIRIN 81 MG PO SCH (21:00)
[2021-08-20] MEDS ORDERED: ATORVASTATIN 80 MG TAB PO SCH (21:00)
[2021-08-20] MEDS ORDERED: amLODIPine 2.5 MG TAB PO SCH (21:00)
[2021-08-20] MEDS: OXYBUTYNIN CHLORIDE 5 MG TAB PO SCH (22:37)
[2021-08-20] MEDS: VIT A,C & E-LUTEIN-MINERALS 1 EACH TAB PO SCH (22:38)
[2021-08-20] MEDS: TAMSULOSIN 0.4 MG CAP.ER.24H PO SCH (22:38)
[2021-08-21 08:25] VITALS: BP 145/80; PULSE 57; RESP 16; TEMP 98.4
[2021-08-21] MEDS: SODIUM CHLORIDE 0.9% 1,000 ML IV SCH (08:35)
[2021-08-21] MEDS: OXYBUTYNIN CHLORIDE 5 MG TAB PO SCH (08:44)
[2021-08-21] MEDS: METOPROLOL TARTRATE 25 MG TAB PO SCH (08:44)
[2021-08-21] MEDS: TAMSULOSIN 0.4 MG CAP.ER.24H PO SCH (08:44)
[2021-08-21] MEDS: VIT A,C & E-LUTEIN-MINERALS 1 EACH TAB PO SCH (08:44)
[2021-08-21] MEDS: LOSARTAN 50 MG TAB PO SCH (08:44)
[2021-08-21] MEDS ORDERED: CHOLECALCIFEROL 25 MCG (1000 IU) TABLET PO SCH (09:00)
[2021-08-21] MEDS ORDERED: MULTIVITAMINS, THERA 1 EACH TAB PO SCH (09:00)
[2021-08-21] MEDS ORDERED: NON FORMULARY DRUG (Fish Oil/Dha/Epa [Fish Oil 1,200 Mg Fish Oil] 1 EACH Capsule) PO SCH (09:00)
[2021-08-21] MEDS ORDERED: ASPIRIN 325 MG TAB PO SCH ×2 (09:00)
--- NOTE | 2021-08-21 10:38 | PN ---
PROGRESS NOTE This is a gentleman with a history of CAD, prior inferior ND, PCI, who came in with atypical chest pain, was concerned about his aneurysm. CT angio revealed that his aneurysm of the ascending aorta is about 4.5 cm, up by about 0.4 cm over 2-1/2 years. However, his blood pressure control is much better. Today he is doing well. No chest pain, shortness of breath or palpitations. Troponins are negative. I am suggesting he can be discharged today and see Dr. Earl next week and consider a stress test as an outpatient. For his aneurysm, BP control is the optimal approach at this time, and we have achieved that. Advised to continue all his medications on a regular basis and to be compliant with them. He will need to have a repeat CT angiogram to check the size of aneurysm in 6 months. Vitals are stable. No JVD. S1, S2 heard normally. Short systolic murmur noted. Lungs are clear. Abdomen is soft, nontender. Lower extremities reveal normal pulses. No edema. Central nervous system is normal. The patient can be discharged today, and he has already an appointment to see Dr. Earl within a week. MMODL / IJN: [id number] /
[2021-08-21 11:32] LABS: Chol/HDL Ratio 3.62 Ratio; LDL Cholesterol,Calculated 53.5 mg/dL (0.0-131.0)
--- NOTE | 2021-08-21 13:23 | FL ---
EXAMINATION TYPE: FL sniff test without CXR DATE OF EXAM: 08/21/2021 COMPARISON: NONE HISTORY: Right hemidiaphragm elevation TECHNIQUE: Fluoroscopy. FINDINGS: Fluoroscopy of 36 seconds provided. No images submitted. There is normal movement of the le ft hemidiaphragm upon inspiration and expiration. There is little or no movement of the right hemidia phragm. IMPRESSION: 1. Right hemidiaphragm paresis.
--- NOTE | 2021-08-21 22:53 | P.DS ---
Providers Date of admission: 08/20/21 06:33 Expected date of discharge: 08/21/21 Attending physician: Pepe Motta Consults: 08/20/21 06:33 Consult Physician Routine Consulting Provider: Mildred Lerner Consult Reason/Comments: chest pain Do you want consulting provider notified?: Yes Primary care physician: [facility] Course: Chief Complaint: Chest pain This is a pleasant 81-year-old patient, follows Dr. Mukherjee. 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 Chronic stable medical conditions include hyperlipidemia, hypertension, SLEEP apnea, kidney stones, CAD with stent of the RCA in December 2015. Patient started off yesterday late evening pain what he described in the solar plexus area. It felt like a tight belt. Some nausea. No dizziness no lightheadedness no perspiration no radiation. It lasted for a few hours. Patient otherwise normally quite active. Decided to come to the ER. Admitted with the diagnosis of unstable angina. August 21: Patient is seen by Dr. YASSINE Lerner from cardiac surgery. 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 I reviewed the check stat x-ray film with radiologist. There is a right diaphragm elevation. Sniff test was carried out with fluoroscopy did confirm right hemidiaphragm paresis. Diagnosis was discussed with the patient. Discussion and discharge planning more than 35 minutes Consultation: Dr. YASSINE Lerner from cardiology Past medical history to include: Hyperlipidemia lipidemia, hypertension, CAD with stent in 2016 to RCA, prostate disorder, kidney stones Social history: Alcohol occasionally. Nonsmoker. Family history: Hypertension, renal disease Physical examination: VITAL SIGNS: 98.4, 57, 16, 145/80, 97% room air GENERAL: Resting bed, comfortable EYES: Pupils equal. Conjunctiva normal. HEENT: External appearance of nose and ears normal, oral cavity grossly normal. NECK: JVD not raised; masses not palpable. HEART: First and second heart sounds are normal; no edema. LUNGS: Respiratory rate normal; clear to auscultation. ABDOMEN: Soft, nontender, liver spleen not palpable, no masses palpable. PSYCH: Alert and oriented x3; mood and affect normal. INVESTIGATIONS, reviewed in the clinical context: Fluoroscopy sniff test: Paresis right hemidiaphragm White count 9.9 hemoglobin 14 platelets 1:30 potassium 4.1 BUN 31 creatinine 1.18 Troponin I 3 negative Amylase/lipase: Normal Coronavirus [PCR]: Not detected EKG tracing personally reviewed by me-normal sinus rhythm. Rate 54. Q waves in inferior leads Chest x-ray film personally reviewed by me-lungs clear. Elevated right diaphragm Chest CTA: Essentially unchanged time due to the descending aorta 4.7 x 4.4 cm. Assessment and plan: -Possible unstable angina in a patient with known CAD. Troponins are negative. EKG nonspecific. 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 Disposition: Home Patient Condition at Discharge: Good Plan - Discharge Summary Discharge Rx Participant: Yes New Discharge Prescriptions: New amLODIPine [Norvasc] 5 mg PO HS #30 tab Continue Oxybutynin Chloride [Ditropan] 5 mg PO BID Atorvastatin [Lipitor] 80 mg PO HS #30 tab Metoprolol Tartrate [Lopressor] 25 mg PO BID #60 tab Aspirin EC [Ecotrin Low Dose] 81 mg PO HS Cholecalciferol [Vitamin D3 (25 Mcg = 1000 Iu)] 100 mcg PO DAILY Fish Oil/Dha/Epa [Fish Oil 1,200 mg Fish Oil] 1 cap PO DAILY Multivit-Min/FA/Lycopen/Lutein [Centrum Silver Tablet] 1 tab PO DAILY Tamsulosin [Flomax] 0.4 mg PO BID Melatonin 10 mg PO HS PRN PRN Reason: Insomnia Irbesartan [Avapro] 150 mg PO DAILY Nitroglycerin Sl Tabs [Nitrostat] 0.4 mg SL Q5M PRN PRN Reason: Chest Pain Vit C/E/Zn/Coppr/Lutein/Zeaxan [Preservision Areds 2 Softgel] 1 cap PO BID Discontinued amLODIPine [Norvasc] 2.5 mg PO HS Discharge Medication List Oxybutynin Chloride [Ditropan] 5 mg PO BID 01/11/16 [History] Atorvastatin [Lipitor] 80 mg PO HS #30 tab 01/13/16 [Rx] Metoprolol Tartrate [Lopressor] 25 mg PO BID #60 tab 01/13/16 [Rx] Aspirin EC [Ecotrin Low Dose] 81 mg PO HS 03/25/18 [History] Cholecalciferol [Vitamin D3 (25 Mcg = 1000 Iu)] 100 mcg PO DAILY 03/25/18 [History] Fish Oil/Dha/Epa [Fish Oil 1,200 mg Fish Oil] 1 cap PO DAILY 03/25/18 [History] Multivit-Min/FA/Lycopen/Lutein [Centrum Silver Tablet] 1 tab PO DAILY 03/25/18 [History] Tamsulosin [Flomax] 0.4 mg PO BID 03/25/18 [History] Irbesartan [Avapro] 150 mg PO DAILY 02/21/21 [History] Melatonin 10 mg PO HS PRN 02/21/21 [History] Vit C/E/Zn/Coppr/Lutein/Zeaxan [Preservision Areds 2 Softgel] 1 cap PO BID 02/21/21 [History] Nitroglycerin Sl Tabs [Nitrostat] 0.4 mg SL Q5M PRN 08/20/21 [History] amLODIPine [Norvasc] 5 mg PO HS #30 tab 08/21/21 [Rx] Follow up Appointment(s)/Referral(s): Mc Mukherjee DO [Primary Care Provider] - 08/23/21 11:00 am Robb Earl MD [STAFF PHYSICIAN] - 08/29/21 2:30 pm Patient Instructions/Handouts: Chest Pain (DC), Heart Healthy Diet (DC), Hypertension (DC) Activity/Diet/Wound Care/Special Instructions: stress test as outpatient Discharge Disposition: HOME SELF-CARE
== END 2021-08-21 14:35 | disposition home or self-care (01) ==
LOC: EC 03:24 → 6NMEDSUR 06:33
PROVIDERS: ADMIT Hospitalist; ATTEND Hospitalist
DX: R07.2 Precordial pain (principal); I25.10 Atherosclerotic heart disease of native coronary artery without angina pectoris; R11.0 Nausea; R06.02 Shortness of breath; R61 Generalized hyperhidrosis; E78.5 Hyperlipidemia, unspecified; I25.2 Old myocardial infarction; G47.30 Sleep apnea, unspecified; I10 Essential (primary) hypertension; I71.2 Thoracic aortic aneurysm, without rupture; N42.9 Disorder of prostate, unspecified; F51.04 Psychophysiologic insomnia; N31.9 Neuromuscular dysfunction of bladder, unspecified; N39.498 Other specified urinary incontinence; R01.1 Cardiac murmur, unspecified; J98.6 Disorders of diaphragm; Z20.822 Contact with and (suspected) exposure to COVID-19; Z85.820 Personal history of malignant melanoma of skin; Z87.442 Personal history of urinary calculi; Z95.5 Presence of coronary angioplasty implant and graft; Z79.899 Other long term (current) drug therapy; Z79.82 Long term (current) use of aspirin; Z90.49 Acquired absence of other specified parts of digestive tract; Z71.9 Counseling, unspecified; Z82.49 Family history of ischemic heart disease and other diseases of the circulatory system; Z84.1 Family history of disorders of kidney and ureter
CPT/HCPCS: 96374; 99285; 36415; 93005; 80061; 80053; 82150; 83690; 83735; 84484; 85025; 85610; 85730; 87635; 76000; 71046; 71275; G0378 ×2; J2405; Q9967

== ENCOUNTER 2021-09-02 01:38 | Inpatient (IN) | payer MEDICARE ==
[2021-09-02] MEDS ORDERED: SODIUM CHLORIDE 0.9% 1,000 ML IV STA (01:58)
[2021-09-02] MEDS ORDERED: SODIUM CHLORIDE 0.9% 500 ML 500 ML IV STA (01:58)
--- NOTE | 2021-09-02 02:00 | ED ---
Chest Pain HPI - General Chief Complaint: Chest Pain Stated Complaint: Chest Pain Time Seen by Provider: 09/02/21 01:58 Source: patient, RN notes reviewed, old records reviewed Mode of arrival: ambulatory Limitations: no limitations - History of Present Illness Initial Comments: This is an 81-year-old male to the ER for evaluation patient Dese for evaluation regards to epigastric chest pain abdominal pain. Significant abdominal swelling abdominal tenderness. Nausea and pain especially after eating. Decreased appetite increased abdominal bloating. Patient has had appendix removed. No fevers. Mild nausea no active vomiting. No other complaints MD Complaint: chest pain, other ([place] pain and nausea) -: days(s) Onset: after eating Pain Location: substernal, epigastric Pain Radiation: none Severity: moderate Severity scale (1-10): 6 Quality: aching Consistency: intermittent Improves With: nothing Worsens With: eating Context: other (Recent chest pain admission) Anginal Symptoms: nausea, vomiting Treatments Prior to Arrival: none - Related Data Home Medications Medication Instructions Recorded Confirmed Oxybutynin Chloride [Ditropan] 5 mg PO BID 01/11/16 08/20/21 Aspirin EC [Ecotrin Low Dose] 81 mg PO HS 03/25/18 08/20/21 Cholecalciferol [Vitamin D3 (25 100 mcg PO DAILY 03/25/18 08/20/21 Mcg = 1000 Iu)] Fish Oil/Dha/Epa [Fish Oil 1,200 1 cap PO DAILY 03/25/18 08/20/21 mg Fish Oil] Multivit-Min/FA/Lycopen/Lutein 1 tab PO DAILY 03/25/18 08/20/21 [Centrum Silver Tablet] Tamsulosin [Flomax] 0.4 mg PO BID 03/25/18 08/20/21 Irbesartan [Avapro] 150 mg PO DAILY 02/21/21 08/20/21 Melatonin 10 mg PO HS PRN 02/21/21 08/20/21 Vit C/E/Zn/Coppr/Lutein/Zeaxan 1 cap PO BID 02/21/21 08/20/21 [Preservision Areds 2 Softgel] Nitroglycerin Sl Tabs [Nitrostat] 0.4 mg SL Q5M PRN 08/20/21 08/20/21 Previous Rx's Medication Instructions Recorded Atorvastatin [Lipitor] 80 mg PO HS #30 tab 01/13/16 Metoprolol Tartrate [Lopressor] 25 mg PO BID #60 tab 01/13/16 amLODIPine [Norvasc] 5 mg PO HS #30 tab 08/21/21 Allergies Allergy/AdvReac Type Severity Reaction Status Date / Time No Known Allergies Allergy Verified 09/02/21 01:41 Review of Systems ROS Statement: Those systems with pertinent positive or pertinent negative responses have been documented in the HPI. ROS Other: All systems not noted in ROS Statement are negative. EKG Findings - EKG Comments: EKG Findings:: EKG is normal sinus rhythm 67 NJ 180 QRS 96 QTc 431 Past Medical History Past Medical History: Cancer, Hyperlipidemia, Hypertension, Myocardial Infarction ([place]), Prostate Disorder, Sleep Apnea/CPAP/BIPAP Additional Past Medical History / Comment(s): kidney stones,LEFT REAR SHOULDER MELANOMA REMOVED Last Myocardial Infarction Date:: 01/10/16 History of Any Multi-Drug Resistant Organisms: None Reported Past Surgical History: Adenoidectomy, Appendectomy, Orthopedic Surgery, Tonsillectomy Additional Past Surgical History / Comment(s): Hand surg; prostate surg Past Anesthesia/Blood Transfusion Reactions: No Reported Reaction Past Psychological History: No Psychological Hx Reported Smoking Status: Never smoker Past Alcohol Use History: Occasional Past Drug Use History: None Reported - Past Family History Father Family Medical History: Hypertension, Renal Disease Mother Family Medical History: Myocardial Infarction ([place]) General Exam General appearance: alert, in no apparent distress Head exam: Present: atraumatic, normocephalic, normal inspection Eye exam: Present: normal appearance, PERRL, EOMI. Absent: scleral icterus, conjunctival injection, periorbital swelling ENT exam: Present: normal exam, mucous membranes moist Neck exam: Present: normal inspection. Absent: tenderness, meningismus, lymphadenopathy Respiratory exam: Present: normal lung sounds bilaterally. Absent: respiratory distress, wheezes, rales, rhonchi, stridor Cardiovascular Exam: Present: regular rate, normal rhythm, normal heart sounds. Absent: systolic murmur, diastolic murmur, rubs, gallop, clicks GI/Abdominal exam: Present: soft, normal bowel sounds. Absent: distended, tenderness, guarding, rebound, rigid Extremities exam: Present: normal inspection, full ROM, normal capillary refill. Absent: tenderness, pedal edema, joint swelling, calf tenderness Back exam: Present: normal inspection Neurological exam: Present: alert, oriented X3, CN II-XII intact Psychiatric exam: Present: normal affect, normal mood Skin exam: Present: warm, dry, intact, normal color. Absent: rash Course Vital Signs 09/02/21 04:54 Pulse Rate 81 Respiratory 18 Rate Blood Pressure 158/82 O2 Sat by Pulse 95 Oximetry - Reevaluation(s) Reevaluation #1: 09/02/21 06:11 Medical record is reviewed Reevaluation #2: 09/02/21 06:11 Patient symptoms are improved Reevaluation #3: 09/02/21 06:11 Patient family informed of results and questions answered - Consultations Consultation #1: Spoke with Dr. Motta who can admit this patient Chest Pain MDM - MDM 78 female with recurrent chest abdominal pain. Mild transaminitis of unknown origin, patient will be admitted for further evaluation management pain control. Disposition Clinical Impression: Chest pain, Abdominal pain, Transaminitis Disposition: ADMITTED IP TO THIS HOSP Condition: Good Is patient prescribed a controlled substance at d/c from ED?: No Referrals: Mc Mukherjee DO [Primary Care Provider] - 1-2 days
[2021-09-02 02:21] LABS: Basophils % (A) 0 %; Eosinophils # (A) 0.1 k/uL (0-0.7); Eosinophils % (A) 1 %; HCT 46.2 % (39.0-53.0); HGB 14.9 gm/dL (13.0-17.5); Lymphocytes # (A) 1.1 k/uL (1.0-4.8); Lymphocytes % (A) 8 %; MCH 32.4 pg (25.0-35.0); MCHC 32.2 g/dL (31.0-37.0); MCV 100.6 fL (80.0-100.0); Mean Platelet Volume 8.2; Monocytes # (A) 0.5 k/uL (0-1.0); Monocytes % (A) 4 %; Neutrophils # (A) 11.9 k/uL (1.3-7.7); Neutrophils % (A) 87 %; Platelet Count 164 k/uL (150-450); RBC 4.59 m/uL (4.30-5.90); RDW 12.7 % (11.5-15.5); WBC 13.8 k/uL (3.8-10.6)
--- NOTE | 2021-09-02 02:27 | XR ---
EXAMINATION TYPE: XR chest 1V portable DATE OF EXAM: 09/02/2021 COMPARISON: 08/20/2021 HISTORY: Chest pain TECHNIQUE: FINDINGS: There is no heart failure nor confluent pneumonic infiltrate. There are no hilar masses. There is elevated right diaphragm. There are chest leads. IMPRESSION: No active cardiopulmonary disease. No change.
[2021-09-02 02:40] LABS: Albumin 3.7 g/dL (3.5-5.0); C Reactive Protein 5.6 mg/dL (<1.0); Calcium 9.5 mg/dL (8.4-10.2); Potassium 3.9 mmol/L (3.5-5.1); Total Protein 6.5 g/dL (6.3-8.2)
[2021-09-02 02:50] LABS: Partial Thromboplastin Time 23.5 sec (22.0-30.0); Prothrombin Time 10.3 sec (9.0-12.0)
--- NOTE | 2021-09-02 03:43 | CT ---
EXAMINATION TYPE: CT abdomen pelvis w con DATE OF EXAM: 09/02/2021 COMPARISON: 02/21/2021 HISTORY: pain CT DLP: 1489.6 mGycm Automated exposure control for dose reduction was used. CONTRAST: Performed with IV Contrast, patient injected with 80 mL of Isovue 300. The lung bases are clear of consolidation. Heart appears enlarged. There is no pericardial effusion. There is no pleural effusion. Liver spleen and stomach pancreas appear intact. Bowel gas and not dilated. Gallbladder appears preethi l. There is no adrenal mass. Kidneys show satisfactory contrast opacification. There is no hydronephrosi s. There are numerous bilateral renal parapelvic cysts. Delayed images show normal renal excretion. U reters are not dilated. Bladder distends smoothly. There is no inguinal hernia. Prostate is enlarged and measures 5 cm. There is no free fluid in the pelvis. There is no evidence of a pelvic mass. There is no mesenteric edema. There is no ascites or free air. There is no bowel obstruction. Appendix is not seen. No sign of thickened appendix. Lumbar vertebra have normal alignment. Posterior elements are intact. There is vacuum disc at L4-5 an d L5-S1. There is no compression fracture. There is mild spurring of the endplates. The bony pelvis i s intact. Hip joints are intact. IMPRESSION: Multiple renal parapelvic cysts. No renal obstruction. Atherosclerotic vascular disease. Mild cardiom egaly. There is clearing of the left-sided perinephric edema compared to the old exam. There is clearing of the calculus at the left ureteropelvic junction compared to old exam.
[2021-09-02] MEDS ORDERED: AMPICILLIN-SULBACTAM 3 GM in SODIUM CHLORIDE 0.9% 100 ML IVPB STA (04:04)
[2021-09-02] MEDS ORDERED: HYDROmorphone 0.5 MG/0.5 ML SYRINGE IVP STA (04:04)
[2021-09-02] MEDS ORDERED: KETOROLAC 15 MG/ML 1 ML VIAL IVP STA (04:04)
--- NOTE | 2021-09-02 06:00 | US ---
EXAMINATION TYPE: US gallbladder DATE OF EXAM: 09/02/2021 COMPARISON: CLINICAL HISTORY: pain. RUQ pain. EXAM MEASUREMENTS: Liver Length: 13.5 cm Gallbladder Wall: 0.2 cm CBD: 0.5 cm Right Kidney: 12.7 x 5.3 x 6.0 cm Limited due to bowel gas Pancreas: Obscured by bowel gas Liver: Scanned through ribs due to bowel gas, no prominent lesion visualized Gallbladder: No stones seen, fold visualized Evidence for sonographic Casey's sign: neg CBD: wnl Right Kidney: Multiple cysts seen in renal cortex and renal pelvis. Largest in pelvis = 2.3 x 2.5 x 2.1 cm. IMPRESSION: No gallstones or dilated ducts. No focal liver defect. Multiple right renal cortical cysts.
[2021-09-02] MEDS ORDERED: ONDANSETRON 4 MG/2 ML VIAL IVP PRN (06:12)
[2021-09-02] MEDS ORDERED: MORPHINE SULFATE 4 MG/ML SYRINGE IV PRN (06:12)
[2021-09-02] MEDS ORDERED: NALOXONE 0.4 MG/ML 1 ML VIAL IV PRN (06:12)
[2021-09-02 07:19] LABS: Acetaminophen <10.0 ug/mL; Salicylate <1.0 mg/dL
[2021-09-02] MEDS ORDERED: NITROGLYCERIN SL TABS 0.4 MG TAB SUBLINGUAL PRN (10:45)
[2021-09-02] MEDS ORDERED: MELATONIN 5 MG TABLET PO PRN (10:45)
[2021-09-02 12:23] LABS: Hepatitis A Antibody IgM Nonreactive (Nonreactive); Hepatitis B Core IgM Nonreactive (Nonreactive); Hepatitis B Surface Antigen Nonreactive (Nonreactive); Hepatitis C IgG Antibody Nonreactive (Nonreactive)
[2021-09-02] MEDS: amLODIPine 2.5 MG TAB PO SCH (13:00)
[2021-09-02] MEDS: OXYBUTYNIN CHLORIDE 5 MG TAB PO SCH ×2 (13:00→19:26)
[2021-09-02] MEDS: TAMSULOSIN 0.4 MG CAP.ER.24H PO SCH ×2 (13:59→19:15)
[2021-09-02] MEDS: METOPROLOL TARTRATE 25 MG TAB PO SCH ×2 (13:59→19:15)
[2021-09-02] MEDS: CHOLECALCIFEROL 25 MCG (1000 IU) TABLET PO SCH ×2 (13:59→14:02)
[2021-09-02] MEDS: LOSARTAN 50 MG TAB PO SCH (13:59)
[2021-09-02] MEDS: HYDROmorphone 0.5 MG/0.5 ML SYRINGE IVP PRN ×2 (14:00→19:15)
--- NOTE | 2021-09-02 18:11 | P.HPIM ---
History of Present Illness H&P Date: 09/02/21 Chief Complaint: Epigastric pain This is a pleasant 81-year-old patient, follows Dr. Mukherjee. 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 Chronic stable medical conditions include hyperlipidemia, hypertension, SLEEP apnea, kidney stones, CAD with stent of the RCA in December 2015, right diaphragm paresis Patient presented unit on August 20 with upper abdominal bandlike sensation that time questionable unstable angina. Patient seen by Dr. YASSINE Lerner from cardiology. Troponins were negative. 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 Patient states his pain and greatly improving his left. Patient now presents with 1 day of duration of upper abdominal pain. Some nausea after eating. Feels like a tight band across the upper abdomen. No fever no chills. No dizziness no lightheadedness. No precordial pain. Patient said of elevated liver enzymes in the ER. Patient having significant upper abdominal pain. Surgery consulted Review of systems: GEN.: Tired EYES: None HEENT: None NECK: None RESPIRATORY: None CARDIOVASCULAR: None GASTROINTESTINAL: As above GENITOURINARY: None MUSCULOSKELETAL: None LYMPHATICS: None HEMATOLOGICAL: None PSYCHIATRY: None NEUROLOGICAL: None Past medical history to include: Hyperlipidemia lipidemia, hypertension, CAD with stent in 2016 to RCA, prostate disorder, kidney stones, right diaphragm paresis Social history: Alcohol occasionally. Nonsmoker. Family history: Hypertension, renal disease Physical examination: VITAL SIGNS: 1, 18, 158/82, 95% room air GENERAL: BMI 30.1, declining in bed, awake, a bit uncomfortable EYES: Pupils equal. Conjunctiva normal. HEENT: External appearance of nose and ears normal, oral cavity grossly normal. NECK: JVD not raised; masses not palpable. HEART: First and second heart sounds are normal; no edema. LUNGS: Respiratory rate normal; clear to auscultation. ABDOMEN: Soft, upper abdominal tenderness, liver spleen not palpable, no masses palpable. PSYCH: Alert and oriented x3; mood and affect normal. NEUROLOGICAL: Cranial nerves grossly intact; no facial asymmetry, power and sensation grossly intact. LYMPHATICS: No lymph nodes palpable in the axilla and neck INVESTIGATIONS, reviewed in the clinical context: White count 13.8 hemoglobin 14.9 platelets 164 potassium 3.9 BUN 34 creatinine 1.13 total bilirubin 2 AST 289 ALT 159 alk phos 181 LDH 1161 CRP 5.6 lipase 114 Acute hepatitis screen for ABC: Negative Coronavirus [PCR]: Not detected Salicylates, acetaminophen unremarkable EKG tracing personally reviewed by me-sinus rhythm, nonspecific findings Computed tomography scan abdomen and pelvis: Unremarkable Ultrasound gallbladder: No gallstones or dilated ducts Previous labs: Patient had normal LFTs on 08/20/2021 Assessment and plan: -Patient presents with acute onset of upper abdominal pain with some tenderness in the right upper quadrant. Has an elevated white count. Acute elevation of LFTs including bilirubin. Had some nausea. Interestingly the patient's gallbladder ultrasound was unremarkable. 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 Diet clear liquids. Consult surgery. Repeat labs. 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 Clear liquid diet. Consult surgery. Discussed with patient. Repeat CMP Past Medical History Past Medical History: Cancer, Hyperlipidemia, Hypertension, Myocardial Infarction ([place]), Prostate Disorder, Sleep Apnea/CPAP/BIPAP Additional Past Medical History / Comment(s): kidney stones,LEFT REAR SHOULDER MELANOMA REMOVED Last Myocardial Infarction Date:: 01/10/16 History of Any Multi-Drug Resistant Organisms: None Reported Past Surgical History: Adenoidectomy, Appendectomy, Orthopedic Surgery, Tonsillectomy Additional Past Surgical History / Comment(s): Hand surg; prostate surg Past Anesthesia/Blood Transfusion Reactions: No Reported Reaction Past Psychological History: No Psychological Hx Reported Smoking Status: Never smoker Past Alcohol Use History: Occasional Past Drug Use History: None Reported - Past Family History Father Family Medical History: Hypertension, Renal Disease Mother Family Medical History: Myocardial Infarction ([place]) Medications and Allergies Home Medications Medication Instructions Recorded Confirmed Type Oxybutynin Chloride [Ditropan] 5 mg PO BID 01/11/16 09/02/21 History Atorvastatin [Lipitor] 80 mg PO HS #30 tab 01/13/16 09/02/21 Rx Metoprolol Tartrate [Lopressor] 25 mg PO BID #60 tab 01/13/16 09/02/21 Rx Aspirin EC [Ecotrin Low Dose] 81 mg PO HS 03/25/18 09/02/21 History Cholecalciferol [Vitamin D3 (25 100 mcg PO DAILY 03/25/18 09/02/21 History Mcg = 1000 Iu)] Fish Oil/Dha/Epa [Fish Oil 1,200 1 cap PO DAILY 03/25/18 09/02/21 History mg Fish Oil] Multivit-Min/FA/Lycopen/Lutein 1 tab PO DAILY 03/25/18 09/02/21 History [Centrum Silver Tablet] Tamsulosin [Flomax] 0.4 mg PO BID 03/25/18 09/02/21 History Irbesartan [Avapro] 150 mg PO DAILY 02/21/21 09/02/21 History Melatonin 10 mg PO HS PRN 02/21/21 09/02/21 History Vit C/E/Zn/Coppr/Lutein/Zeaxan 1 cap PO BID 02/21/21 09/02/21 History [Preservision Areds 2 Softgel] Nitroglycerin Sl Tabs [Nitrostat] 0.4 mg SL Q5M PRN 08/20/21 09/02/21 History amLODIPine BESYLATE [Norvasc] 2.5 mg PO DAILY 09/02/21 09/02/21 History amLODIPine BESYLATE [Norvasc] 5 mg PO HS 09/02/21 09/02/21 History Allergies Allergy/AdvReac Type Severity Reaction Status Date / Time No Known Allergies Allergy Verified 09/02/21 08:09 Physical Exam Vitals: Vital Signs Temp Pulse Pulse Resp BP BP Pulse Ox 09/02/21 08:00 18 09/02/21 07:00 98.3 F 70 18 146/77 100 09/02/21 06:27 75 18 114/70 94 L 09/02/21 04:54 81 18 158/82 95 Intake and Output 09/01/21 09/02/21 09/02/21 22:59 06:59 14:59 Other: Voiding Method Toilet # Voids 1 Weight 95.254 kg 95.254 kg Results CBC & Chem 7: 09/02/21 02:02 09/02/21 02:02 Labs: Abnormal Lab Results - Last 24 Hours (Table) 09/02/21 09/02/21 Range/Units 02:02 02:02 WBC 13.8 H (3.8-10.6) k/uL MCV 100.6 H (80.0-100.0) fL Neutrophils # 11.9 H (1.3-7.7) k/uL BUN 34 H (9-20) mg/dL Glucose 131 H (74-99) mg/dL Total Bilirubin 2.0 H (0.2-1.3) mg/dL AST 289 H (17-59) U/L ALT 159 H (4-49) U/L Alkaline Phosphatase 181 H (38-126) U/L Lactate Dehydrogenase 1161 H (313-618) U/L C-Reactive Protein 5.6 H (<1.0) mg/dL Thrombosis Risk Factor Assmnt - Choose All That Apply Any of the Below Risk Factors Present?: Yes Each Factor Represents 1 point: Obesity (BMI >25) Other Risk Factors: Yes Each Risk Factor Represents 3 Points: Age 75 years or older Other congenital or acquired thrombophilia - If yes, enter type in comment: No Thrombosis Risk Factor Assessment Total Risk Factor Score: 4 Thrombosis Risk Factor Assessment Level: Moderate Risk
[2021-09-02] MEDS: ASPIRIN 81 MG PO SCH (19:15)
[2021-09-02] MEDS: amLODIPine 5 MG TAB PO SCH (19:15)
[2021-09-02] MEDS: ATORVASTATIN 80 MG TAB PO SCH (19:15)
[2021-09-03] MEDS: METOPROLOL TARTRATE 25 MG TAB PO SCH ×2 (07:20→20:54)
[2021-09-03] MEDS: CHOLECALCIFEROL 25 MCG (1000 IU) TABLET PO SCH (07:20)
[2021-09-03] MEDS: LOSARTAN 50 MG TAB PO SCH (07:20)
[2021-09-03] MEDS: TAMSULOSIN 0.4 MG CAP.ER.24H PO SCH ×2 (07:20→20:54)
[2021-09-03] MEDS: amLODIPine 2.5 MG TAB PO SCH (07:22)
[2021-09-03] MEDS: OXYBUTYNIN CHLORIDE 5 MG TAB PO SCH ×2 (07:22→20:54)
[2021-09-03 08:24] LABS: Basophils % (A) 0 %; Eosinophils # (A) 0.1 k/uL (0-0.7); Eosinophils % (A) 2 %; HCT 44.8 % (39.0-53.0); HGB 14.4 gm/dL (13.0-17.5); Lymphocytes # (A) 0.5 k/uL (1.0-4.8); Lymphocytes % (A) 6 %; MCH 32.4 pg (25.0-35.0); MCHC 32.1 g/dL (31.0-37.0); Mean Platelet Volume 8.2; Monocytes # (A) 0.5 k/uL (0-1.0); Monocytes % (A) 6 %; Neutrophils # (A) 7.9 k/uL (1.3-7.7); Neutrophils % (A) 86 %; Platelet Count 147 k/uL (150-450); RBC 4.43 m/uL (4.30-5.90); RDW 12.8 % (11.5-15.5); WBC 9.2 k/uL (3.8-10.6)
[2021-09-03 08:37] LABS: ALT 454 U/L (4-49); AST 354 U/L (17-59); African American GFR (CKD) 90 (>60 ml/min/1.73 sqM); Albumin 3.1 g/dL (3.5-5.0); Albumin/Globulin Ratio 1.1; Alkaline Phosphatase 223 U/L (38-126); Anion Gap 8 mmol/L; Blood Urea Nitrogen 27 mg/dL (9-20); Calcium 8.9 mg/dL (8.4-10.2); Carbon Dioxide 22 mmol/L (22-30); Chloride 111 mmol/L (98-107); Globulin 2.7 g/dL; Glucose 84 mg/dL (74-99); Non-African American GFR(CKD) 78 (>60 ml/min/1.73 sqM); Potassium 3.9 mmol/L (3.5-5.1); Sodium 141 mmol/L (137-145); Total Bilirubin 5.6 mg/dL (0.2-1.3); Total Protein 5.8 g/dL (6.3-8.2)
--- NOTE | 2021-09-03 10:46 | P.GSCN ---
History of Present Illness Consult date: 09/03/21 Reason for Consult: Epigastric pain History of present illness: 81-year-old male comes in the hospital for evaluation of upper abdominal pain. Had a similar episode a few weeks ago. Some nausea but no vomiting. He notices his urine is somewhat darker in color. Pain was a 6 out of 10 initially now it is down to less than 1 out of 10. Patient's liver enzymes noted to be significantly elevated. Bilirubin is over 5 transaminases and alkaline phosphatase all elevated. Ultrasound showed no evidence of gallstones. CAT scan shows a somewhat distended gallbladder with possible gallbladder wall thickening. At the anticipated location of the ampulla Vater there is a small foci of calcification possibly on the basis of a CBD Stone. No history of EtOH use. Review of Systems The patient denies any acute changes in vision or hearing, no dysphagia or odynophagia, no chest pain or shortness of breath, no dysuria or hematuria, no headache, no runny nose, no rectal bleeding or melena, no unexplained weight lo ss Past Medical History Past Medical History: Cancer, Hyperlipidemia, Hypertension, Myocardial Infarction ([place]), Prostate Disorder, Sleep Apnea/CPAP/BIPAP Additional Past Medical History / Comment(s): kidney stones,LEFT REAR SHOULDER M ELANOMA REMOVED Last Myocardial Infarction Date:: 01/10/16 History of Any Multi-Drug Resistant Organisms: None Reported Past Surgical History: Adenoidectomy, Appendectomy, Orthopedic Surgery, Tonsillectomy Additional Past Surgical History / Comment(s): Hand surg; prostate surg Past Anesthesia/Blood Transfusion Reactions: No Reported Reaction Past Psychological History: No Psychological Hx Reported Smoking Status: Never smoker Past Alcohol Use History: Occasional Past Drug Use History: None Reported - Past Family History Father Family Medical History: Hypertension, Renal Disease Mother Family Medical History: Myocardial Infarction ([place]) Medications and Allergies Home Medications Medication Instructions Recorded Confirmed Type Oxybutynin Chloride [Ditropan] 5 mg PO BID 01/11/16 09/02/21 History Atorvastatin [Lipitor] 80 mg PO HS #30 tab 01/13/16 09/02/21 Rx Metoprolol Tartrate [Lopressor] 25 mg PO BID #60 tab 01/13/16 09/02/21 Rx Aspirin EC [Ecotrin Low Dose] 81 mg PO HS 03/25/18 09/02/21 History Cholecalciferol [Vitamin D3 (25 100 mcg PO DAILY 03/25/18 09/02/21 History Mcg = 1000 Iu)] Fish Oil/Dha/Epa [Fish Oil 1,200 1 cap PO DAILY 03/25/18 09/02/21 History mg Fish Oil] Multivit-Min/FA/Lycopen/Lutein 1 tab PO DAILY 03/25/18 09/02/21 History [Centrum Silver Tablet] Tamsulosin [Flomax] 0.4 mg PO BID 03/25/18 09/02/21 History Irbesartan [Avapro] 150 mg PO DAILY 02/21/21 09/02/21 History Melatonin 10 mg PO HS PRN 02/21/21 09/02/21 History Vit C/E/Zn/Coppr/Lutein/Zeaxan 1 cap PO BID 02/21/21 09/02/21 History [Preservision Areds 2 Softgel] Nitroglycerin Sl Tabs [Nitrostat] 0.4 mg SL Q5M PRN 08/20/21 09/02/21 History amLODIPine BESYLATE [Norvasc] 2.5 mg PO DAILY 09/02/21 09/02/21 History amLODIPine BESYLATE [Norvasc] 5 mg PO HS 09/02/21 09/02/21 History Allergies Allergy/AdvReac Type Severity Reaction Status Date / Time No Known Allergies Allergy Verified 09/02/21 08:09 Surgical - Exam Vital Signs Pulse Resp BP Pulse Ox 81 18 158/82 95 09/02/21 04:54 09/02/21 04:54 09/02/21 04:54 09/02/21 04:54 Physical exam: General: Well-developed, well-nourished HEENT: Normocephalic, sclerae icteric Abdomen: Mild epigastric tenderness, nondistended Extremities: No edema Neuro: Alert and oriented Results - Labs 09/03/21 07:42 09/03/21 07:42 Abnormal Lab Results - Last 24 Hours (Table) 09/03/21 09/03/21 Range/Units 07:42 07:42 MCV 101.0 H (80.0-100.0) fL Plt Count 147 L (150-450) k/uL Neutrophils # 7.9 H (1.3-7.7) k/uL Lymphocytes # 0.5 L (1.0-4.8) k/uL Chloride 111 H (98-107) mmol/L BUN 27 H (9-20) mg/dL Total Bilirubin 5.6 H (0.2-1.3) mg/dL AST 354 H (17-59) U/L ALT 454 H (4-49) U/L Alkaline Phosphatase 223 H (38-126) U/L Total Protein 5.8 L (6.3-8.2) g/dL Albumin 3.1 L (3.5-5.0) g/dL Diabetes panel 09/03/21 Range/Units 07:42 Sodium 141 (137-145) mmol/L Potassium 3.9 (3.5-5.1) mmol/L Chloride 111 H (98-107) mmol/L Carbon Dioxide 22 (22-30) mmol/L BUN 27 H (9-20) mg/dL Creatinine 0.91 (0.66-1.25) mg/dL Glucose 84 (74-99) mg/dL Calcium 8.9 (8.4-10.2) mg/dL AST 354 H (17-59) U/L ALT 454 H (4-49) U/L Alkaline Phosphatase 223 H (38-126) U/L Total Protein 5.8 L (6.3-8.2) g/dL Albumin 3.1 L (3.5-5.0) g/dL Calcium panel 09/03/21 Range/Units 07:42 Calcium 8.9 (8.4-10.2) mg/dL Albumin 3.1 L (3.5-5.0) g/dL Pituitary panel 09/03/21 Range/Units 07:42 Sodium 141 (137-145) mmol/L Potassium 3.9 (3.5-5.1) mmol/L Chloride 111 H (98-107) mmol/L Carbon Dioxide 22 (22-30) mmol/L BUN 27 H (9-20) mg/dL Creatinine 0.91 (0.66-1.25) mg/dL Glucose 84 (74-99) mg/dL Calcium 8.9 (8.4-10.2) mg/dL Adrenal panel 09/03/21 Range/Units 07:42 Sodium 141 (137-145) mmol/L Potassium 3.9 (3.5-5.1) mmol/L Chloride 111 H (98-107) mmol/L Carbon Dioxide 22 (22-30) mmol/L BUN 27 H (9-20) mg/dL Creatinine 0.91 (0.66-1.25) mg/dL Glucose 84 (74-99) mg/dL Calcium 8.9 (8.4-10.2) mg/dL Total Bilirubin 5.6 H (0.2-1.3) mg/dL AST 354 H (17-59) U/L ALT 454 H (4-49) U/L Alkaline Phosphatase 223 H (38-126) U/L Total Protein 5.8 L (6.3-8.2) g/dL Albumin 3.1 L (3.5-5.0) g/dL Assessment and Plan (1) Abdominal pain Narrative/Plan: 81-year-old male with epigastric abdominal pain. Liver enzymes significantly elevated. Suspect patient has a distal CBD Stone. We'll consult GI to see the patient tomorrow. In the meanwhile will order an MRCP. We'll follow. Current Visit: Yes Status: Acute Code(s): R10.9 - UNSPECIFIED ABDOMINAL PAIN SNOMED Code(s): 29210130
[2021-09-03] MEDS: HYDROmorphone 0.5 MG/0.5 ML SYRINGE IVP PRN (14:26)
--- NOTE | 2021-09-03 16:43 | P.PN ---
Progress Note - Text Progress Note Date: 09/03/21 Chief Complaint: Epigastric pain This is a pleasant 81-year-old patient, follows Dr. Mukherjee. Body And Frame Technician Dr. Tsang. Chronic stable medical conditions include hyperlipidemia, hypertension, SLEEP apnea, kidney stones, CAD with stent of the RCA in December 2015, right diaphragm paresis Patient presented unit on August 20 with upper abdominal bandlike sensation that time questionable unstable angina. Patient seen by Dr. YASSINE Lerner from cardiology. Troponins were negative. Patient was told to follow with his applications architect. Patient states his pain and greatly improving his left. Patient now presents with 1 day of duration of upper abdominal pain. Some nausea after eating. Feels like a tight band across the upper abdomen. No fever no chills. No dizziness no lightheadedness. No precordial pain. Patient said of elevated liver enzymes in the ER. Patient having significant upper abdominal pain. Surgery consulted September 03: Having right upper abdominal pain. Worsening LFT. [place] to have distal CBD stone. GI/Dr. Layla Clayton consulted. GI services will be available from tomorrow morning. Discussed with the patient, his and son of the bedside. IV fluids. Review of systems: Was done for constitutional, cardiovascular, GI, pulmonary. relevant finding as above Active Medications Amlodipine Besylate (Amlodipine 2.5 Mg Tab) 2.5 mg PO DAILY [facility] Last Admin: 09/03/21 07:22 Dose: 2.5 mg Documented by: Amlodipine Besylate (Amlodipine 5 Mg Tab) 5 mg PO [facility] Last Admin: 09/02/21 19:15 Dose: 5 mg Documented by: Aspirin (Aspirin 81 Mg) 81 mg PO [facility] Last Admin: 09/02/21 19:15 Dose: 81 mg Documented by: Atorvastatin Calcium (Atorvastatin 80 Mg Tab) 80 mg PO [facility] Last Admin: 09/02/21 19:15 Dose: 80 mg Documented by: Cholecalciferol (Cholecalciferol 25 Mcg (1000 Iu) Tablet) 100 mcg PO DAILY [facility] Last Admin: 09/03/21 07:20 Dose: 100 mcg Documented by: Hydromorphone HCl (Hydromorphone 0.5 Mg/0.5 Ml Syringe) 0.5 mg IVP Q3HR PRN PRN Reason: Pain Last Admin: 09/03/21 14:26 Dose: 0.5 mg Documented by: Losartan Potassium (Losartan 50 Mg Tab) 50 mg PO DAILY [facility] Last Admin: 09/03/21 07:20 Dose: 50 mg Documented by: Melatonin (Melatonin 5 Mg Tablet) 10 mg PO HS PRN PRN Reason: Insomnia Last Admin: 09/02/21 19:15 Dose: 10 mg Documented by: Metoprolol Tartrate (Metoprolol Tartrate 25 Mg Tab) 25 mg PO BID [facility] Last Admin: 09/03/21 07:20 Dose: 25 mg Documented by: Naloxone HCl (Naloxone 0.4 Mg/Ml 1 Ml Vial) 0.2 mg IV Q2M PRN PRN Reason: Opioid Reversal Nitroglycerin (Nitroglycerin Sl Tabs 0.4 Mg Tab) 0.4 mg SUBLINGUAL Q5M PRN PRN Reason: Chest Pain Ondansetron HCl (Ondansetron 4 Mg/2 Ml Vial) 4 mg IVP Q8HR PRN PRN Reason: Nausea And Vomiting Oxybutynin Chloride (Oxybutynin Chloride 5 Mg Tab) 5 mg PO BID [facility] Last Admin: 09/03/21 07:22 Dose: 5 mg Documented by: Tamsulosin HCl (Tamsulosin 0.4 Mg Cap.Er.24h) 0.4 mg PO BID [facility] Last Admin: 09/03/21 07:20 Dose: 0.4 mg Documented by: Past medical history to include: Hyperlipidemia lipidemia, hypertension, CAD with stent in 2016 to RCA, prostate disorder, kidney stones, right diaphragm paresis Social history: Alcohol occasionally. Nonsmoker. Family history: Hypertension, renal disease Physical examination: VITAL SIGNS: 97.8, 68, 16, 1 66 x 88, 96% room air GENERAL:reclining in bed, awake, not in distress EYES: Pupils equal. Conjunctiva normal. HEENT: External appearance of nose and ears normal, oral cavity grossly normal. NECK: JVD not raised; masses not palpable. HEART: First and second heart sounds are normal; no edema. LUNGS: Respiratory rate normal; clear to auscultation. ABDOMEN: Soft, upper abdominal tenderness, no guarding rigidity liver spleen not palpable, no masses palpable. PSYCH: Alert and oriented x3; mood and affect normal. INVESTIGATIONS, reviewed in the clinical context: September 03: White count 9.2 hemoglobin 14.4 platelets 147 potassium 3.9 bilirubin 5.6 AST 354 ALT 454 procalcitonin 1.05 White count 13.8 hemoglobin 14.9 platelets 164 potassium 3.9 BUN 34 creatinine 1.13 total bilirubin 2 AST 289 ALT 159 alk phos 181 LDH 1161 CRP 5.6 lipase 114 Acute hepatitis screen for ABC: Negative Coronavirus [PCR]: Not detected Salicylates, acetaminophen unremarkable EKG tracing personally reviewed by me-sinus rhythm, nonspecific findings Computed tomography scan abdomen and pelvis: Unremarkable Ultrasound gallbladder: No gallstones or dilated ducts Previous labs: Patient had normal LFTs on 08/20/2021 Assessment and plan: -Patient presents with acute onset of upper abdominal pain with some tenderness in the right upper quadrant. Has an elevated white count. Acute elevation of LFTs including bilirubin. Had some nausea. Interestingly the patient's gallbladder ultrasound was unremarkable. Likely distal CBD gallstone- obstructive hepatitis.: Worsening Diet clear liquids. Consult GI. 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 GI consulted. Other medications to continue. IV fluids. Nothing by mouth after midnight. Discussed with patient and family.
[2021-09-03] MEDS: PIPERACILLIN-TAZOBACTAM 3.375 GM in SODIUM CHLORIDE 0.9% 100 ML IVPB SCH (17:08)
[2021-09-03] MEDS: ATORVASTATIN 80 MG TAB PO SCH (20:53)
[2021-09-03] MEDS: amLODIPine 5 MG TAB PO SCH (20:54)
[2021-09-03] MEDS: ASPIRIN 81 MG PO SCH (20:54)
[2021-09-03] MEDS: SODIUM CHLORIDE 0.9% 1,000 ML IV SCH (20:54)
[2021-09-04] MEDS: PIPERACILLIN-TAZOBACTAM 3.375 GM in SODIUM CHLORIDE 0.9% 100 ML IVPB SCH ×3 (00:03→15:56)
[2021-09-04] MEDS: SODIUM CHLORIDE 0.9% 1,000 ML IV SCH ×3 (02:50→21:01)
[2021-09-04 07:12] LABS: ALT 343 U/L (4-49); AST 241 U/L (17-59); African American GFR (CKD) 84 (>60 ml/min/1.73 sqM); Albumin 2.7 g/dL (3.5-5.0); Alkaline Phosphatase 253 U/L (38-126); Anion Gap 4 mmol/L; Blood Urea Nitrogen 17 mg/dL (9-20); Calcium 8.4 mg/dL (8.4-10.2); Carbon Dioxide 23 mmol/L (22-30); Chloride 111 mmol/L (98-107); Globulin 2.7 g/dL; Glucose 95 mg/dL (74-99); Non-African American GFR(CKD) 73 (>60 ml/min/1.73 sqM); Potassium 3.5 mmol/L (3.5-5.1); Sodium 138 mmol/L (137-145); Total Bilirubin 4.6 mg/dL (0.2-1.3); Total Protein 5.4 g/dL (6.3-8.2)
[2021-09-04 07:16] LABS: Basophils % (A) 0 %; Eosinophils # (A) 0.2 k/uL (0-0.7); Eosinophils % (A) 3 %; HCT 43.1 % (39.0-53.0); HGB 13.7 gm/dL (13.0-17.5); Lymphocytes # (A) 0.6 k/uL (1.0-4.8); Lymphocytes % (A) 9 %; MCH 31.6 pg (25.0-35.0); MCHC 31.8 g/dL (31.0-37.0); MCV 99.4 fL (80.0-100.0); Mean Platelet Volume 8.2; Monocytes # (A) 0.5 k/uL (0-1.0); Monocytes % (A) 7 %; Neutrophils # (A) 5.8 k/uL (1.3-7.7); Neutrophils % (A) 80 %; Platelet Count 134 k/uL (150-450); RBC 4.34 m/uL (4.30-5.90); RDW 12.7 % (11.5-15.5); WBC 7.2 k/uL (3.8-10.6)
[2021-09-04] MEDS: TAMSULOSIN 0.4 MG CAP.ER.24H PO SCH ×2 (08:00→21:00)
[2021-09-04] MEDS: METOPROLOL TARTRATE 25 MG TAB PO SCH ×2 (08:00→21:00)
[2021-09-04] MEDS: CHOLECALCIFEROL 25 MCG (1000 IU) TABLET PO SCH (08:00)
[2021-09-04] MEDS: LOSARTAN 50 MG TAB PO SCH (08:00)
[2021-09-04] MEDS: OXYBUTYNIN CHLORIDE 5 MG TAB PO SCH ×2 (08:00→21:00)
[2021-09-04] MEDS: amLODIPine 2.5 MG TAB PO SCH (08:01)
--- NOTE | 2021-09-04 10:57 | P.CONS ---
History of Present Illness - Reason for Consult Consult date: 09/04/21 Epigastric pain, possible CBD stone Requesting physician: Brandon Salomon - Chief Complaint Gastric pain - History of Present Illness This is an 81-year-old white male who presented to emergency department with complaints of the gastric and right upper quadrant pain. Patient states the pain began on 1226 for which he presented to the emergency department for and was admitted for 2 days. At that time he he had a chest CTA done that showed small calculus in the gallbladder neck. Symptoms improved and he was sent home. He states he's been getting pain intermittently and states he had one episode of emesis. He is no longer nauseated but he does have pain with palpation. He has no previous history of ulcer he does believe he's had an EGD in the past. During this admission he had a CT of the abdomen and pelvis that showed no gallbladder stones or CBD dilation. There was multiple renal parapelvic cysts no renal obstruction. Arthrosclerotic vascular disease mild cardiomegaly. Clearing of left sided. Nephric edema compared to old exam. He also underwent an ultrasound of the gallbladder that shows a CBD 0.5 cm with no stones seen in the gallbladder. And no dilated ducts. Admitting labs show WBC 13.8 hemoglobin 14.9 hematocrit 46 platelet count 164 INR 1.0 total bilirubin 2.0 AST 289 ALT 159 alkaline phosphatase 181 lipase 114. Yesterday he did have an increase in his LFTs with his total bilirubin going up as high as 5.6. Repeat labs today show no leukocytosis, total bilirubin 4.6 AST 241 ALT 343 alkaline phosphatase 253. He is scheduled for MRCP. He's been afebrile. Pain is only with palpation at this time. No nausea or vomiting. Review of Systems REVIEW OF SYSTEMS: CARDIOPULMONARY: No chest pain or shortness of breath. Gastrointestinal: Epigastric and right upper quadrant pain, that he reports as intermittent, gnawing pain. No nausea or vomiting. No hematemesis, coffee- ground emesis. No rectal bleeding, or melena. GENITOURINARY: No dysuria or hematuria. MUSCULOSKELETAL: Reports normal range of motion., Joint pain. SKIN: No rashes. No jaundice. ENDOCRINE: No chills, fevers. No excessive weight gain or loss. No polydipsia or polyuria. PSYCHIATRIC: Unremarkable. NEUROLOGY: No change in mental status. Denies dizziness, headache. ENT: Vision unremarkable. CONSTITUTIONAL: No recent weight loss. No fever, chills, night sweats. Past Medical History Past Medical History: Cancer, Hyperlipidemia, Hypertension, Myocardial Infarction ([place]), Prostate Disorder, Sleep Apnea/CPAP/BIPAP Additional Past Medical History / Comment(s): kidney stones,LEFT REAR SHOULDER MELANOMA REMOVED Last Myocardial Infarction Date:: 01/10/16 History of Any Multi-Drug Resistant Organisms: None Reported Past Surgical History: Adenoidectomy, Appendectomy, Orthopedic Surgery, Tonsillectomy Additional Past Surgical History / Comment(s): Hand surg; prostate surg Past Anesthesia/Blood Transfusion Reactions: No Reported Reaction Past Psychological History: No Psychological Hx Reported Smoking Status: Never smoker Past Alcohol Use History: Occasional Past Drug Use History: None Reported - Past Family History Father Family Medical History: Hypertension, Renal Disease Mother Family Medical History: Myocardial Infarction ([place]) Medications and Allergies Home Medications Medication Instructions Recorded Confirmed Type Oxybutynin Chloride [Ditropan] 5 mg PO BID 01/11/16 09/02/21 History Atorvastatin [Lipitor] 80 mg PO HS #30 tab 01/13/16 09/02/21 Rx Metoprolol Tartrate [Lopressor] 25 mg PO BID #60 tab 01/13/16 09/02/21 Rx Aspirin EC [Ecotrin Low Dose] 81 mg PO HS 03/25/18 09/02/21 History Cholecalciferol [Vitamin D3 (25 100 mcg PO DAILY 03/25/18 09/02/21 History Mcg = 1000 Iu)] Fish Oil/Dha/Epa [Fish Oil 1,200 1 cap PO DAILY 03/25/18 09/02/21 History mg Fish Oil] Multivit-Min/FA/Lycopen/Lutein 1 tab PO DAILY 03/25/18 09/02/21 History [Centrum Silver Tablet] Tamsulosin [Flomax] 0.4 mg PO BID 03/25/18 09/02/21 History Irbesartan [Avapro] 150 mg PO DAILY 02/21/21 09/02/21 History Melatonin 10 mg PO HS PRN 02/21/21 09/02/21 History Vit C/E/Zn/Coppr/Lutein/Zeaxan 1 cap PO BID 02/21/21 09/02/21 History [Preservision Areds 2 Softgel] Nitroglycerin Sl Tabs [Nitrostat] 0.4 mg SL Q5M PRN 08/20/21 09/02/21 History amLODIPine BESYLATE [Norvasc] 2.5 mg PO DAILY 09/02/21 09/02/21 History amLODIPine BESYLATE [Norvasc] 5 mg PO HS 09/02/21 09/02/21 History Allergies Allergy/AdvReac Type Severity Reaction Status Date / Time No Known Allergies Allergy Verified 09/02/21 08:09 Physical Exam Vitals: Vital Signs Temp Pulse Pulse Resp BP BP Pulse Ox 09/04/21 07:00 97.7 F 70 18 148/86 97 09/04/21 02:00 76 19 09/04/21 01:52 98.4 F 65 16 143/79 95 09/03/21 19:38 97.9 F 76 19 173/85 96 09/03/21 19:35 68 16 09/03/21 14:00 16 09/03/21 13:16 97.8 F 68 16 166/88 96 Intake and Output 09/03/21 09/04/21 09/04/21 22:59 06:59 14:59 Intake Total 300 0 Output Total 350 Balance -50 0 Intake: Oral 300 0 Output: Urine 350 Other: Voiding Method Urinal Urinal Diaper Incontinent # Voids 3 General appearance: The patient is alert, oriented, appears in no acute distress. HET: Head is normocephalic and atraumatic. Conjunctiva pink. Sclera anicteric. Neck: Supple without lymphadenopathy. Trachea midline. Heart: S1 S2. Regular rate and rhythm. Lungs: Clear to auscultation. Abdomen: Soft, obese, epigastric and right upper quadrant tenderness with palpation, nondistended with bowel sounds. No guarding or rigidity. Skin: No rashes. No jaundice. Extremities: Normal skin color and turgor. No pedal edema. Neurological: No focal deficits. Alert and oriented x3. Results CBC & Chem 7: 09/04/21 06:09 09/04/21 06:09 Labs: Abnormal Lab Results - Last 24 Hours (Table) 09/03/21 09/03/21 09/04/21 Range/Units 07:42 07:42 06:09 MCV 101.0 H (80.0-100.0) fL Plt Count 147 L 134 L (150-450) k/uL Neutrophils # 7.9 H (1.3-7.7) k/uL Lymphocytes # 0.5 L 0.6 L (1.0-4.8) k/uL Chloride (98-107) mmol/L Total Bilirubin (0.2-1.3) mg/dL AST (17-59) U/L ALT (4-49) U/L Alkaline Phosphatase (38-126) U/L Total Protein (6.3-8.2) g/dL Albumin (3.5-5.0) g/dL Procalcitonin 1.05 H (0.02-0.09) ng/mL 09/04/21 Range/Units 06:09 MCV (80.0-100.0) fL Plt Count (150-450) k/uL Neutrophils # (1.3-7.7) k/uL Lymphocytes # (1.0-4.8) k/uL Chloride 111 H (98-107) mmol/L Total Bilirubin 4.6 H (0.2-1.3) mg/dL AST 241 H (17-59) U/L ALT 343 H (4-49) U/L Alkaline Phosphatase 253 H (38-126) U/L Total Protein 5.4 L (6.3-8.2) g/dL Albumin 2.7 L (3.5-5.0) g/dL Procalcitonin (0.02-0.09) ng/mL Comments: As stated in HPI CT scan - abdomen: report reviewed US - abdomen: report reviewed Assessment and Plan (1) Transaminitis Narrative/Plan: 81-year-old male who presented to the emergency department with complaints of intermittent right upper quadrant and epigastric pain. Patient was initially seen overnight in the hospital on August 20 through the and was discharged home. At that time he had a CT angiogram of the chest that did show a small calculus in the neck of the gallbladder. Patient denies any previous history of gallbladder disease or liver disease. At that time, his LFTs were unremarkable. She did have one episode of associated nausea with vomiting but none since. He had a CT of the abdomen and pelvis that did not show any abnormalities of the gallbladder, no gallstones or biliary dilation. He also underwent a ultrasound of the gallbladder again showing a normal CBD measuring 0.5 cm, no gallstones noted. However he did have elevated LFTs on admission. On admission his total bilirubin is 2.0, AST 289 ALT 159 alkaline phosphatase 181 and lipase 114. He also at that time did have mild elevation in his WBC at 13.8 with a stable hemoglobin of 14.9 INR 1.0. Yesterday he did have an increase in his total bilirubin up to as high as 5.6. Gen. surgery had seen patient and ask gastroenterology to evaluate further for transaminitis with possible CBD stone obstruction. Repeat labs today WBC 7.2 hemoglobin 13.7 platelet count 134,000 total bilirubin 4.6 AST 241 ALT 343 alkaline phosphatase 253. Hepatitis panel was negative. Patient does deny any previous history of alcoholism, no liver disease. Patient is undergoing MRCP today. Further recommendations forthcoming based on results. Current Visit: Yes Status: Acute Code(s): R74.01 - ELEVATION OF LEVELS OF LIVER TRANSAMINASE LEVELS SNOMED Code(s): 280011873 (2) Abdominal pain Current Visit: Yes Status: Acute Code(s): R10.9 - UNSPECIFIED ABDOMINAL PAIN SNOMED Code(s): 10735198 Plan: 1. Continue symptomatic and supportive care 2. Daily CBC, CMP 3. MRCP ordered, await results 4. Avoid hepatotoxic medications 5. Plan for ERCP tomorrow, procedure discussed with patient in detail including risks and benefits. Patient is willing to proceed. 6. Continue antibiotics 7. Indomethacin suppository one hour prior to procedure 8. Patient may have low-fat diet, nothing by mouth after midnight Thank you for this consultation, we will continue to follow. Dr. Layla Clayton I agree with the dictator's note, documented as a scribe by Payal Bell.
[2021-09-04] MEDS ORDERED: SUCCINYLCHOLINE CHLORIDE 100 MG/5 ML SYR IV ONE (11:45)
[2021-09-04] MEDS ORDERED: PROPOFOL 10 MG/ML 20 ML VIAL IV ONE (11:45)
[2021-09-04] MEDS ORDERED: LIDOCAINE 1% INJ 10MG/ML (20 ML MDV) ONE (11:45)
--- NOTE | 2021-09-04 13:11 | P.PN ---
Subjective Progress Note Date: 09/04/21 CHIEF COMPLAINT: Epigastric pain and elevated LFTs HISTORY OF PRESENT ILLNESS: Patient reports improvement in his abdominal pain. He denies any nausea or vomiting. He reports feeling better. Patient had MRCP completed today. Results are pending. Afebrile. WBC 7.2 Hgb 13.7 sodium 138 potassium 3.5 creatinine 0.97 total bilirubin 4.6 AST 241 ALT 343 alk phos 253 LFTs trending downwards. Hepatitis panel negative. PHYSICAL EXAM: VITAL SIGNS: Reviewed. GENERAL: Well-developed in no acute distress. HEENT: No sclera icterus. Extraocular movements grossly intact. Moist buccal mucosa. Head is atraumatic, normocephalic. ABDOMEN: Soft. Nondistended. Nontender. NEUROLOGIC: Alert and oriented. Cranial nerves II through XII grossly intact. ASSESSMENT: 1. Epigastric abdominal pain and possible distal CBD stone 2. Elevated liver enzymes PLAN: -Patient seen by GI service and they are planning ERCP tomorrow -Further recommendations forthcoming per surgeon -Continue supportive care -Continue antibiotics -Continue pain medication as needed -Continue IV fluids Physician Hand Tube Bender note has been reviewed by physician. Signing provider agrees with the documented findings, assessment, and plan of care. Objective - Vital Signs Vital signs: Vital Signs Temp 97.7 F 09/04/21 07:00 Pulse 70 09/04/21 08:00 Resp 18 09/04/21 08:00 BP 148/86 09/04/21 07:00 Pulse Ox 97 09/04/21 07:00 Intake & Output 09/03/21 09/04/21 09/04/21 18:59 06:59 18:59 Intake Total 236 300 Output Total 400 350 Balance -164 -50 Intake: Oral 236 300 Output: Urine 400 350 Other: Voiding Method Urinal Urinal Urinal Diaper Diaper Incontinent Incontinent # Voids 3 # Bowel Movements 0 - Labs CBC & Chem 7: 09/04/21 06:09 09/04/21 06:09 Labs: Abnormal Lab Results - Last 24 Hours (Table) 09/04/21 09/04/21 Range/Units 06:09 06:09 Plt Count 134 L (150-450) k/uL Lymphocytes # 0.6 L (1.0-4.8) k/uL Chloride 111 H (98-107) mmol/L Total Bilirubin 4.6 H (0.2-1.3) mg/dL AST 241 H (17-59) U/L ALT 343 H (4-49) U/L Alkaline Phosphatase 253 H (38-126) U/L Total Protein 5.4 L (6.3-8.2) g/dL Albumin 2.7 L (3.5-5.0) g/dL
--- NOTE | 2021-09-04 17:03 | MR ---
MRCP HISTORY: Increased liver function tests, abnormal CT Multiplanar multisequence imaging obtained through the abdomen, three-dimensional reconstructions per formed through the biliary system on an alternate workstation and reviewed. Correlation to CT scan 09/02/2021, ultrasound 09/02/2021 The calcification seen at the head of the pancreas on CT does not show an associated filling defect w ithin the distribution of the common bile duct. Gallbladder shows a thickened wall but no abnormal roopa emory contents or pericholecystic fluid. No evident dilated intra or extrahepatic biliary ducts. Live r shows signal drop on out of phase imaging consistent with hepatic steatosis. There are multiple cysts associated with the kidneys with varying signal on T1 weighted sequences in the right and left kidney, there are parapelvic cysts suspected bilaterally. Some of the cysts show T 2 bright sequence rather than T2 low signal noted in some of the cystic foci. The aorta shows a aneurysmal appearance distally within the abdomen measuring approximately 3.9 cm in greatest dimension, the proximal ascending aorta there is also aneurysmal measuring 4.7 cm. No retro peritoneal adenopathy. 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 No definite abnormal calci fication. Spleen shows no mass. Lung bases show no effusion. Adrenal glands show symmetric appearance . No evident bowel obstruction. IMPRESSION: No evident choledocholithiasis. Findings within the kidneys may be indicative of underlyi ng proteinaceous cysts as well as cortical cysts, parapelvic cysts. Gallbladder wall thickening is in determinate, HIDA scan may be of benefit. Aortic aneurysm. Additional findings above.
[2021-09-04] MEDS: ASPIRIN 81 MG PO SCH (21:00)
[2021-09-04] MEDS: amLODIPine 5 MG TAB PO SCH (21:00)
[2021-09-04] MEDS: ATORVASTATIN 80 MG TAB PO SCH (21:00)
--- NOTE | 2021-09-04 21:54 | P.PN ---
Progress Note - Text Progress Note Date: 09/04/21 Chief Complaint: Epigastric pain This is a pleasant 81-year-old patient, follows Dr. Mukherjee. [employer] Dr. Tsang. Chronic stable medical conditions include hyperlipidemia, hypertension, SLEEP apnea, kidney stones, CAD with stent of the RCA in December 2015, right diaphragm paresis Patient presented unit on August 20 with upper abdominal bandlike sensation that time questionable unstable angina. Patient seen by Dr. YASSINE Lerner from cardiology. Troponins were negative. 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 Patient states his pain and greatly improving his left. Patient now presents with 1 day of duration of upper abdominal pain. Some nausea after eating. Feels like a tight band across the upper abdomen. No fever no chills. No dizziness no lightheadedness. No precordial pain. Patient said of elevated liver enzymes in the ER. Patient having significant upper abdominal pain. Surgery consulted September 03: Having right upper abdominal pain. Worsening LFT. [place] to have distal CBD stone. GI/Dr. Layla Clayton consulted. GI services will be available from tomorrow morning. Discussed with the patient, his and son of the bedside. IV fluids. September 04: Improved abdominal pain. Slight improvement LFTs. Clear liquids. Seen by GI/Dr. Hermosillo. ERCP tomorrow. Discussed with patient. Had the patient sit up in a chair. Review of systems: Was done for constitutional, cardiovascular, GI, pulmonary. relevant finding as above Active Medications Amlodipine Besylate (Amlodipine 2.5 Mg Tab) 2.5 mg PO DAILY [facility] Last Admin: 09/04/21 08:01 Dose: 2.5 mg Documented by: Amlodipine Besylate (Amlodipine 5 Mg Tab) 5 mg PO [facility] Last Admin: 09/04/21 21:00 Dose: 5 mg Documented by: Aspirin (Aspirin 81 Mg) 81 mg PO [facility] Last Admin: 09/04/21 21:00 Dose: 81 mg Documented by: Atorvastatin Calcium (Atorvastatin 80 Mg Tab) 80 mg PO [facility] Last Admin: 09/04/21 21:00 Dose: 80 mg Documented by: Cholecalciferol (Cholecalciferol 25 Mcg (1000 Iu) Tablet) 100 mcg PO DAILY [facility] Last Admin: 09/04/21 08:00 Dose: 100 mcg Documented by: Hydromorphone HCl (Hydromorphone 0.5 Mg/0.5 Ml Syringe) 0.5 mg IVP Q3HR PRN PRN Reason: Pain Last Admin: 09/03/21 14:26 Dose: 0.5 mg Documented by: Sodium Chloride (Saline 0.9%) 1,000 mls @ 100 mls/hr IV .Q10H [facility] Last Admin: 09/04/21 21:01 Dose: 100 mls/hr Documented by: Piperacillin Sod/Tazobactam (Sod 3.375 gm/ Sodium Chloride) 100 mls @ 25 mls/hr IVPB Q8HR [facility] Last Admin: 09/04/21 15:56 Dose: 25 mls/hr Documented by: Indomethacin (Indomethacin 50mg Suppository) 100 mg RECTAL ONCE ONE Stop: 09/05/21 11:01 Losartan Potassium (Losartan 50 Mg Tab) 50 mg PO DAILY [facility] Last Admin: 09/04/21 08:00 Dose: 50 mg Documented by: Melatonin (Melatonin 5 Mg Tablet) 10 mg PO HS PRN PRN Reason: Insomnia Last Admin: 09/02/21 19:15 Dose: 10 mg Documented by: Metoprolol Tartrate (Metoprolol Tartrate 25 Mg Tab) 25 mg PO BID [facility] Last Admin: 09/04/21 21:00 Dose: 25 mg Documented by: Naloxone HCl (Naloxone 0.4 Mg/Ml 1 Ml Vial) 0.2 mg IV Q2M PRN PRN Reason: Opioid Reversal Nitroglycerin (Nitroglycerin Sl Tabs 0.4 Mg Tab) 0.4 mg SUBLINGUAL Q5M PRN PRN Reason: Chest Pain Ondansetron HCl (Ondansetron 4 Mg/2 Ml Vial) 4 mg IVP Q8HR PRN PRN Reason: Nausea And Vomiting Oxybutynin Chloride (Oxybutynin Chloride 5 Mg Tab) 5 mg PO BID [facility] Last Admin: 09/04/21 21:00 Dose: 5 mg Documented by: Tamsulosin HCl (Tamsulosin 0.4 Mg Cap.Er.24h) 0.4 mg PO BID [facility] Last Admin: 09/04/21 21:00 Dose: 0.4 mg Documented by: Past medical history to include: Hyperlipidemia lipidemia, hypertension, CAD with stent in 2016 to RCA, prostate disorder, kidney stones, right diaphragm paresis Social history: Alcohol occasionally. Nonsmoker. Family history: Hypertension, renal disease Physical examination: VITAL SIGNS: 97.4, 66, 17, 150/79, 96% room air GENERAL:reclining in bed, awake, comfortable EYES: Pupils equal. Conjunctiva normal. HEENT: External appearance of nose and ears normal, oral cavity grossly normal. NECK: JVD not raised; masses not palpable. HEART: First and second heart sounds are normal; no edema. LUNGS: Respiratory rate normal; clear to auscultation. ABDOMEN: Soft, no tenderness, no guarding rigidity liver spleen not palpable, no masses palpable. PSYCH: Alert and oriented x3; mood and affect normal. INVESTIGATIONS, reviewed in the clinical context: MRCP [September 04]: No evidence of choledocholithiasis. Gallbladder wall thickening- Indeterminate. Aortic aneurysm 3.9 cm in the abdomen. September 04: White count 7.2 hemoglobin 13.7 platelets 134 potassium 3.5 crit 0.97 bilirubin 4.6 AST 241 AST 343 albumin 2.7 September 03: White count 9.2 hemoglobin 14.4 platelets 147 potassium 3.9 bilirubin 5.6 AST 354 ALT 454 procalcitonin 1.05 White count 13.8 hemoglobin 14.9 platelets 164 potassium 3.9 BUN 34 creatinine 1.13 total bilirubin 2 AST 289 ALT 159 alk phos 181 LDH 1161 CRP 5.6 lipase 114 Acute hepatitis screen for ABC: Negative Coronavirus [PCR]: Not detected Salicylates, acetaminophen unremarkable EKG tracing personally reviewed by me-sinus rhythm, nonspecific findings Computed tomography scan abdomen and pelvis: Unremarkable Ultrasound gallbladder: No gallstones or dilated ducts Previous labs: Patient had normal LFTs on 08/20/2021 Assessment and plan: -Patient presents with acute onset of upper abdominal pain with some tenderness in the right upper quadrant. Has an elevated white count. Acute elevation of LFTs including bilirubin. Had some nausea. Interestingly the patient's gallbladder ultrasound was unremarkable. Likely distal CBD gallstone- obstructive hepatitis.: Slow to respond. Sent any possible the patient may have now passed a stone given slight improvement in LFTs and decreased abdominal pain. Diet clear liquids. Seen by GI. Pending ERCP. 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 To be followed. -Hypoalbuminemia Acute phase reactant We will empirically add IV Zosyn. GI consulted. Other medications to continue. IV fluids. Nothing by mouth after midnight. Discussed with patient and family.
[2021-09-05] MEDS: PIPERACILLIN-TAZOBACTAM 3.375 GM in SODIUM CHLORIDE 0.9% 100 ML IVPB SCH ×3 (00:19→16:18)
[2021-09-05] MEDS: OXYBUTYNIN CHLORIDE 5 MG TAB PO SCH ×2 (07:58→20:19)
[2021-09-05] MEDS: LOSARTAN 50 MG TAB PO SCH (07:58)
[2021-09-05] MEDS: METOPROLOL TARTRATE 25 MG TAB PO SCH ×2 (07:58→20:19)
[2021-09-05] MEDS: CHOLECALCIFEROL 25 MCG (1000 IU) TABLET PO SCH (07:58)
[2021-09-05] MEDS: TAMSULOSIN 0.4 MG CAP.ER.24H PO SCH ×2 (07:58→20:19)
[2021-09-05] MEDS: amLODIPine 2.5 MG TAB PO SCH (07:59)
[2021-09-05] MEDS ORDERED: ROCURONIUM 10 MG/ML (5 ML VIAL) IV ONE (09:10)
[2021-09-05] MEDS ORDERED: fentaNYL (PF) 50 MCG/ML 2 ML AMP ONE (09:10)
[2021-09-05] MEDS ORDERED: GLYCOPYRROLATE 0.2 MG/ML 2 ML VIAL ONE (09:10)
[2021-09-05] MEDS ORDERED: LIDOCAINE 1% INJ 10MG/ML (20 ML MDV) ONE (09:10)
[2021-09-05] MEDS ORDERED: ONDANSETRON 4 MG/2 ML VIAL ONE (09:10)
[2021-09-05] MEDS ORDERED: MIDAZOLAM 2 MG/2 ML VIAL ONE (09:10)
[2021-09-05] MEDS ORDERED: PROPOFOL 10 MG/ML 20 ML VIAL IV ONE (09:10)
[2021-09-05] MEDS ORDERED: PHENYLEPHRINE-0.9% NACL SYG 1,000 MCG/10 ML SYRINGE ONE (09:10)
[2021-09-05 09:26] LABS: ALT 270 U/L (4-49); AST 154 U/L (17-59); African American GFR (CKD) 88 (>60 ml/min/1.73 sqM); Albumin 2.9 g/dL (3.5-5.0); Alkaline Phosphatase 306 U/L (38-126); Anion Gap 6 mmol/L; Blood Urea Nitrogen 16 mg/dL (9-20); Calcium 8.3 mg/dL (8.4-10.2); Carbon Dioxide 21 mmol/L (22-30); Chloride 112 mmol/L (98-107); Globulin 2.8 g/dL; Glucose 97 mg/dL (74-99); Non-African American GFR(CKD) 76 (>60 ml/min/1.73 sqM); Potassium 3.6 mmol/L (3.5-5.1); Sodium 139 mmol/L (137-145); Total Protein 5.7 g/dL (6.3-8.2)
[2021-09-05 09:51] LABS: Prothrombin Time 11.1 sec (9.0-12.0)
[2021-09-05] MEDS ORDERED: INDOMETHACIN 50MG SUPPOSITORY RECTAL ONE (11:00)
[2021-09-05] MEDS ORDERED: IOPAMIDOL-300 50ML BTL INJ ONE ×3 (11:46→12:01)
[2021-09-05] MEDS ORDERED: IV FLUID CONTINUATION 1,000 ML IV ONE (11:46)
--- NOTE | 2021-09-05 12:20 | P.PCN ---
Date of Procedure: 09/05/21 Procedure(s) Performed: Brief history: Patient is a 81 year-old pleasant white male scheduled for an ERCP as part of evaluation of abdominal pain and elevated serum transaminases/jaundice for the last 2 days' he was noted to have elevated LFTs and bilirubin up to [address] of abdomen was unremarkable. A prior CTA done in July 2062 small stone in the neck of the gallbladder. Because of a clinical suspicion for CBD stones he scheduled for an ERCP today. Procedure performed: ERCP with biliary sphincterotomy and balloon sweep Preoperative diagnoses: Epigastric pain and elevated LFTs/jaundice rule out CBD stone IV sedation per anesthesia: Procedure: After informed consent was obtained from the patient and after the risks benefits and complications including bleeding perforation and pancreatitis explained in detail the patient was brought into the endoscopy unit. The marie ent was placed in prone position and IV conscious sedation was administered by anesthesia under continuous monitoring. The Olympus side-viewing duodenoscope was then inserted into the mouth and esophagus intubated without any difficulty. The scope was gradually advanced into the stomach and duodenum. The major papilla was identified without any difficulty. There was a large. Bleeding diverticulum noted. Initial cannulation resulted in opacification of the common bile duct. Normal diameter with no obvious filling defects noted. Because of the clinical suspicion for CBD stone I proceeded with a biliary sphincterotomy which was performed over the guidewire and was extended to 1 minute. Following this an 8.5 mm balloon was passed over the guidewire into the proximal CBD and was gently withdrawn and some sludge was seen exiting the ampulla but no obvious stones were noted. Maneuver was repeated 2 more times until clear bile was seen in the ampulla. The pancreatic duct was intentionally not cannulated. Patient tolerated the procedure well. Impression: Normal-appearing common bile duct status post biliary stent enterotomy and balloon sweep with small amount of sludge exiting the ampulla Pancreatic duct intentionally not cannulated Recommendations: The findings of this examination were discussed with the patient . At this time will follow labs closely. We will discuss with Dr. Salomon. Start on clear liquid diet..
--- NOTE | 2021-09-05 12:37 | FL ---
EXAMINATION TYPE: FL ERCP DATE OF EXAM: 09/05/2021 CLINICAL HISTORY: Elevated liver enzymes. Abnormal CT. TECHNIQUE: Fluoroscopy. COMPARISON: MRCP from yesterday. FINDINGS: Fluoroscopic guidance was provided during ERCP procedure performed by Dr. Clayton. A total of 10 seconds of fluoroscopic time was utilized during the procedure and 2 spot images was acquired. See images acquired show successful opacification of the biliary system without Filling defect or obs tructing calculus which correlates with MRCP images from one day earlier. IMPRESSION: As Above.
[2021-09-05] MEDS: SODIUM CHLORIDE 0.9% 1,000 ML IV SCH ×2 (13:38→20:20)
[2021-09-05] MEDS: LACTATED RINGERS 1,000 ML IV SCH (13:39)
--- NOTE | 2021-09-05 13:43 | P.PN ---
<Lyndsey Amaro - Last Filed: 09/05/21 13:34> Subjective Progress Note Date: 09/05/21 CHIEF COMPLAINT: Epigastric pain and elevated LFTs HISTORY OF PRESENT ILLNESS: Patient seen prior to his ERCP. He denies any abdominal pain. Denies any nausea or vomiting. MRCP showed no evident choledocholithiasis. Gallbladder wall thickening is indeterminate. HIDA scan may be of benefit. Aortic aneurysm 4.7 cm. Patient had ERCP with Dr. Hermosillo results showed normal-appearing common bile duct status post biliary sphincterotomy and balloon sweep with small amount of sludge exiting the ampulla. Pancreatic duct intentionally not cannulated. Has been started on clear liquid diet. Afebrile. Total bili down from 4.6-2.0 LFTs trending downwards AST 154 ALT 270 alk phos slightly more elevated at 306 PHYSICAL EXAM: VITAL SIGNS: Reviewed. GENERAL: Well-developed in no acute distress. HEENT: No sclera icterus. Extraocular movements grossly intact. Moist buccal mucosa. Head is atraumatic, normocephalic. ABDOMEN: Soft. Nondistended. Nontender. NEUROLOGIC: Alert and oriented. Cranial nerves II through XII grossly intact. ASSESSMENT: 1. Epigastric abdominal pain and possible distal CBD stone 2. Elevated liver enzymes PLAN: -Further recommendations forthcoming per surgeon -Continue supportive care -Continue antibiotics -Continue to monitor LFTs -Continue pain medication as needed -Continue IV fluids Physician Sales Analytics Manager note has been reviewed by physician. Signing provider agrees with the documented findings, assessment, and plan of care. Objective - Vital Signs Vital signs: Vital Signs Temp 97.3 F L 09/05/21 13:30 Pulse 50 L 09/05/21 13:30 Resp 16 09/05/21 13:30 BP 163/82 09/05/21 13:30 Pulse Ox 96 09/05/21 13:30 Intake & Output 09/04/21 09/05/21 09/05/21 18:59 06:59 18:59 Intake Total 418 300 600 Output Total 500 500 260 Balance -82 -200 340 Weight 95.254 kg Intake: IV 600 Oral 418 300 Output: Urine 500 500 260 Other: Voiding Method Urinal Urinal Urinal Diaper Incontinent # Voids 3 - Labs CBC & Chem 7: 09/04/21 06:09 09/05/21 08:57 Labs: Abnormal Lab Results - Last 24 Hours (Table) 09/05/21 Range/Units 08:57 Chloride 112 H (98-107) mmol/L Carbon Dioxide 21 L (22-30) mmol/L Calcium 8.3 L (8.4-10.2) mg/dL Total Bilirubin 2.0 H (0.2-1.3) mg/dL AST 154 H (17-59) U/L ALT 270 H (4-49) U/L Alkaline Phosphatase 306 H (38-126) U/L Total Protein 5.7 L (6.3-8.2) g/dL Albumin 2.9 L (3.5-5.0) g/dL <Brandon Salomon - Last Filed: 09/05/21 17:22> Subjective I have personally seen and examined the patient, reviewed the NUTRITION ASSOCIATE /PAs history, exam and MDM and agree with the assessment and plan as written. Based on total visit time, I have performed more than 50% of the visit. Patient doing well today. ERCP results noted. Recheck labs tomorrow. Options reviewed with patient and his at the bedside. Plan discharge tomorrow with follow-up in the office in one week. Will schedule cholecystectomy following that. Objective - Vital Signs Vital signs: Vital Signs Temp 97.9 F 09/05/21 15:15 Pulse 53 L 09/05/21 15:15 Resp 18 09/05/21 15:15 BP 175/92 09/05/21 15:15 Pulse Ox 93 L 09/05/21 15:15 Intake & Output 09/04/21 09/05/21 09/05/21 18:59 06:59 18:59 Intake Total 418 300 600 Output Total 500 500 660 Balance -82 -200 -60 Weight 95.254 kg Intake: IV 600 Oral 418 300 Output: Urine 500 500 660 Other: Voiding Method Urinal Urinal Urinal Diaper Incontinent # Voids 3 - Labs CBC & Chem 7: 09/04/21 06:09 09/05/21 08:57 Labs: Abnormal Lab Results - Last 24 Hours (Table) 09/05/21 Range/Units 08:57 Chloride 112 H (98-107) mmol/L Carbon Dioxide 21 L (22-30) mmol/L Calcium 8.3 L (8.4-10.2) mg/dL Total Bilirubin 2.0 H (0.2-1.3) mg/dL AST 154 H (17-59) U/L ALT 270 H (4-49) U/L Alkaline Phosphatase 306 H (38-126) U/L Total Protein 5.7 L (6.3-8.2) g/dL Albumin 2.9 L (3.5-5.0) g/dL Assessment and Plan (1) Abdominal pain Current Visit: Yes Status: Acute Code(s): R10.9 - UNSPECIFIED ABDOMINAL PAIN SNOMED Code(s): 14011759
--- NOTE | 2021-09-05 17:01 | P.PN ---
Progress Note - Text Progress Note Date: 09/05/21 Chief Complaint: Epigastric pain This is a pleasant 81-year-old patient, follows Dr. Mukherjee. [employer] Dr. Tsang. Chronic stable medical conditions include hyperlipidemia, hypertension, SLEEP apnea, kidney stones, CAD with stent of the RCA in December 2015, right diaphragm paresis Patient presented unit on August 20 with upper abdominal bandlike sensation that time questionable unstable angina. Patient seen by Dr. YASSINE Lerner from cardiology. Troponins were negative. 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 Patient states his pain and greatly improving his left. Patient now presents with 1 day of duration of upper abdominal pain. Some nausea after eating. Feels like a tight band across the upper abdomen. No fever no chills. No dizziness no lightheadedness. No precordial pain. Patient said of elevated liver enzymes in the ER. Patient having significant upper abdominal pain. Surgery consulted September 03: Having right upper abdominal pain. Worsening LFT. [place] to have distal CBD stone. GI/Dr. Layla Clayton consulted. GI services will be available from tomorrow morning. Discussed with the patient, his and son of the bedside. IV fluids. September 04: Improved abdominal pain. Slight improvement LFTs. Clear liquids. Seen by GI/Dr. Hermosillo. ERCP tomorrow. Discussed with patient. Had the patient sit up in a chair. September 05: Underwent ERCP by Dr. Layla Clayton. No stone was seen. Slight sludge. Biliary sphincterotomy was done. Postprocedure laying in bed. Comfortable. 5. Bedside. Dietary advice. Hopefully patient can be discharged tomorrow. Repeat LFTs. Possible outpatient cholecystectomy. Review of systems: Was done for constitutional, cardiovascular, GI, pulmonary. relevant finding as above Active Medications Amlodipine Besylate (Amlodipine 2.5 Mg Tab) 2.5 mg PO DAILY [facility] Last Admin: 09/05/21 07:59 Dose: 2.5 mg Documented by: Amlodipine Besylate (Amlodipine 5 Mg Tab) 5 mg PO [facility] Last Admin: 09/04/21 21:00 Dose: 5 mg Documented by: Aspirin (Aspirin 81 Mg) 81 mg PO [facility] Last Admin: 09/04/21 21:00 Dose: 81 mg Documented by: Atorvastatin Calcium (Atorvastatin 80 Mg Tab) 80 mg PO [facility] Last Admin: 09/04/21 21:00 Dose: 80 mg Documented by: Cholecalciferol (Cholecalciferol 25 Mcg (1000 Iu) Tablet) 100 mcg PO DAILY [facility] Last Admin: 09/05/21 07:58 Dose: 100 mcg Documented by: Hydromorphone HCl (Hydromorphone 0.5 Mg/0.5 Ml Syringe) 0.5 mg IVP Q3HR PRN PRN Reason: Pain Last Admin: 09/03/21 14:26 Dose: 0.5 mg Documented by: Sodium Chloride (Saline 0.9%) 1,000 mls @ 100 mls/hr IV .Q10H [facility] Last Admin: 09/05/21 13:38 Dose: 100 mls/hr Documented by: Piperacillin Sod/Tazobactam (Sod 3.375 gm/ Sodium Chloride) 100 mls @ 25 mls/hr IVPB Q8HR [facility] Last Admin: 09/05/21 16:18 Dose: 25 mls/hr Documented by: Lactated Ringer's (Lactated Ringers) 1,000 mls @ 20 mls/hr IV .Q24H [facility] Last Admin: 09/05/21 13:39 Dose: Not Given Documented by: Losartan Potassium (Losartan 50 Mg Tab) 50 mg PO DAILY [facility] Last Admin: 09/05/21 07:58 Dose: 50 mg Documented by: Melatonin (Melatonin 5 Mg Tablet) 10 mg PO HS PRN PRN Reason: Insomnia Last Admin: 09/02/21 19:15 Dose: 10 mg Documented by: Metoprolol Tartrate (Metoprolol Tartrate 25 Mg Tab) 25 mg PO BID [facility] Last Admin: 09/05/21 07:58 Dose: 25 mg Documented by: Naloxone HCl (Naloxone 0.4 Mg/Ml 1 Ml Vial) 0.2 mg IV Q2M PRN PRN Reason: Opioid Reversal Nitroglycerin (Nitroglycerin Sl Tabs 0.4 Mg Tab) 0.4 mg SUBLINGUAL Q5M PRN PRN Reason: Chest Pain Ondansetron HCl (Ondansetron 4 Mg/2 Ml Vial) 4 mg IVP Q8HR PRN PRN Reason: Nausea And Vomiting Oxybutynin Chloride (Oxybutynin Chloride 5 Mg Tab) 5 mg PO BID [facility] Last Admin: 09/05/21 07:58 Dose: 5 mg Documented by: Tamsulosin HCl (Tamsulosin 0.4 Mg Cap.Er.24h) 0.4 mg PO BID [facility] Last Admin: 09/05/21 07:58 Dose: 0.4 mg Documented by: Past medical history to include: Hyperlipidemia lipidemia, hypertension, CAD with stent in 2016 to RCA, prostate disorder, kidney stones, right diaphragm paresis Social history: Alcohol occasionally. Nonsmoker. Family history: Hypertension, renal disease Physical examination: VITAL SIGNS: 97.9, 53, 18, 1 4882, 96% room air GENERAL:reclining in bed, awake, comfortable EYES: Pupils equal. Conjunctiva normal. HEENT: External appearance of nose and ears normal, oral cavity grossly normal. NECK: JVD not raised; masses not palpable. HEART: First and second heart sounds are normal; no edema. LUNGS: Respiratory rate normal; clear to auscultation. ABDOMEN: Soft, no tenderness, no guarding rigidity liver spleen not palpable, no masses palpable. PSYCH: Alert and oriented x3; mood and affect normal. INVESTIGATIONS, reviewed in the clinical context: September 05: Potassium 3.6 total bilirubin 2 AST 154 ALT 270 MRCP [September 04]: No evidence of choledocholithiasis. Gallbladder wall thickening- Indeterminate. Aortic aneurysm 3.9 cm in the abdomen. September 04: White count 7.2 hemoglobin 13.7 platelets 134 potassium 3.5 crit 0.97 bilirubin 4.6 AST 241 AST 343 albumin 2.7 September 03: White count 9.2 hemoglobin 14.4 platelets 147 potassium 3.9 bilirubin 5.6 AST 354 ALT 454 procalcitonin 1.05 White count 13.8 hemoglobin 14.9 platelets 164 potassium 3.9 BUN 34 creatinine 1.13 total bilirubin 2 AST 289 ALT 159 alk phos 181 LDH 1161 CRP 5.6 lipase 114 Acute hepatitis screen for ABC: Negative Coronavirus [PCR]: Not detected Salicylates, acetaminophen unremarkable EKG tracing personally reviewed by me-sinus rhythm, nonspecific findings Computed tomography scan abdomen and pelvis: Unremarkable Ultrasound gallbladder: No gallstones or dilated ducts Previous labs: Patient had normal LFTs on 08/20/2021 Assessment and plan: -Patient presents with acute onset of upper abdominal pain with some tenderness in the right upper quadrant. Has an elevated white count. Acute elevation of LFTs including bilirubin. Had some nausea. Interestingly the patient's gallbladder ultrasound was unremarkable. Likely distal CBD gallstone- obstructive hepatitis. Patient may have passed a stone. ERCP: No stone found./Sludge. Sphincterotomy carried out. 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 To be followed. -Hypoalbuminemia Acute phase reactant Repeat LFTs tomorrow. Increase diet. Increase activity. Stable hopefully discharge tomorrow. Discussed with the patient and .
[2021-09-05] MEDS: amLODIPine 5 MG TAB PO SCH (20:18)
[2021-09-05] MEDS: ATORVASTATIN 80 MG TAB PO SCH (20:18)
[2021-09-05] MEDS: ASPIRIN 81 MG PO SCH (20:19)
[2021-09-06] MEDS: SODIUM CHLORIDE 0.9% 1,000 ML IV SCH (05:50)
[2021-09-06 06:33] LABS: ALT 233 U/L (4-49); AST 132 U/L (17-59); African American GFR (CKD) 88 (>60 ml/min/1.73 sqM); Albumin 2.9 g/dL (3.5-5.0); Albumin/Globulin Ratio 1.1; Alkaline Phosphatase 303 U/L (38-126); Anion Gap 5 mmol/L; Blood Urea Nitrogen 17 mg/dL (9-20); Calcium 8.5 mg/dL (8.4-10.2); Carbon Dioxide 22 mmol/L (22-30); Chloride 112 mmol/L (98-107); Globulin 2.7 g/dL; Glucose 80 mg/dL (74-99); Non-African American GFR(CKD) 76 (>60 ml/min/1.73 sqM); Potassium 3.6 mmol/L (3.5-5.1); Sodium 139 mmol/L (137-145); Total Bilirubin 1.6 mg/dL (0.2-1.3); Total Protein 5.6 g/dL (6.3-8.2)
[2021-09-06 08:36] VITALS: BP 131/47; PULSE 64; RESP 18; TEMP 97.3
[2021-09-06] MEDS: PIPERACILLIN-TAZOBACTAM 3.375 GM in SODIUM CHLORIDE 0.9% 100 ML IVPB SCH ×3 (10:11)
[2021-09-06] MEDS: METOPROLOL TARTRATE 25 MG TAB PO SCH (10:11)
[2021-09-06] MEDS: amLODIPine 2.5 MG TAB PO SCH (10:11)
[2021-09-06] MEDS: LOSARTAN 50 MG TAB PO SCH (10:11)
[2021-09-06] MEDS: CHOLECALCIFEROL 25 MCG (1000 IU) TABLET PO SCH (10:11)
[2021-09-06] MEDS: TAMSULOSIN 0.4 MG CAP.ER.24H PO SCH (10:11)
[2021-09-06] MEDS: OXYBUTYNIN CHLORIDE 5 MG TAB PO SCH (10:12)
--- NOTE | 2021-09-06 11:54 | P.PN ---
<Lyndsey Amaro - Last Filed: 09/06/21 11:49> Subjective Progress Note Date: 09/06/21 CHIEF COMPLAINT: Epigastric pain and elevated LFTs HISTORY OF PRESENT ILLNESS: Patient had ERCP with Dr. Clayton results showed normal-appearing common bile duct status post biliary sphincterotomy and balloon sweep with small amount of sludge exiting the ampulla. Pancreatic duct intentionally not cannulated. Patient denies any abdominal pain. He is tolerating a clear liquid diet. LFTs are trending downwards. Total bilirubin is down from 2-1.6. He denies any nausea or vomiting. He did have a bowel movement. Afebrile. Patient would like to be discharged. PHYSICAL EXAM: VITAL SIGNS: Reviewed. GENERAL: Well-developed in no acute distress. HEENT: No sclera icterus. Extraocular movements grossly intact. Moist buccal mucosa. Head is atraumatic, normocephalic. ABDOMEN: Soft. Nondistended. Nontender. NEUROLOGIC: Alert and oriented. Cranial nerves II through XII grossly intact. ASSESSMENT: 1. Epigastric abdominal pain and possible passing of CBD stone 2. Elevated liver enzymes PLAN: -Patient can be discharged from surgical standpoint -Patient to follow-up with Dr. Salomon in office in one week and at that time he will have outpatient cholecystectomy scheduled Physician Cloth Boil Off Machine Operator note has been reviewed by physician. Signing provider agrees with the documented findings, assessment, and plan of care. Objective - Vital Signs Vital signs: Vital Signs Temp 97.3 F L 09/06/21 08:00 Pulse 64 09/06/21 08:00 Resp 18 09/06/21 08:00 BP 131/47 09/06/21 08:00 Pulse Ox 98 09/06/21 08:00 Intake & Output 09/05/21 09/06/21 09/06/21 18:59 06:59 18:59 Intake Total 718 Output Total 660 Balance 58 Weight 95.254 kg Intake: IV 600 Oral 118 Output: Urine 660 Other: Voiding Method Urinal Urinal # Voids 1 # Bowel Movements 1 0 - Labs CBC & Chem 7: 09/04/21 06:09 09/06/21 05:17 Labs: Abnormal Lab Results - Last 24 Hours (Table) 09/06/21 09/06/21 Range/Units 05:17 05:17 Chloride 112 H (98-107) mmol/L Total Bilirubin 1.6 H (0.2-1.3) mg/dL AST 132 H (17-59) U/L ALT 233 H (4-49) U/L Alkaline Phosphatase 303 H (38-126) U/L Total Protein 5.6 L (6.3-8.2) g/dL Albumin 2.9 L (3.5-5.0) g/dL Procalcitonin 0.31 H (0.02-0.09) ng/mL <Brandon Salomon - Last Filed: 09/06/21 12:16> Subjective I have personally seen and examined the patient, reviewed the FUEL CELL BUILDER /PAs history, e xam and MDM and agree with the assessment and plan as written. Based on total visit time, I have performed more than 50% of the visit. As above. Patient doing well today. Labs are improved. December discharge. Follow-up as outpatient to schedule cholecystectomy. Objective - Vital Signs Vital signs: Vital Signs Temp 97.3 F L 09/06/21 08:00 Pulse 64 09/06/21 08:00 Resp 18 09/06/21 08:00 BP 131/47 09/06/21 08:00 Pulse Ox 98 09/06/21 08:00 Intake & Output 09/05/21 09/06/21 09/06/21 18:59 06:59 18:59 Intake Total 718 Output Total 660 Balance 58 Weight 95.254 kg Intake: IV 600 Oral 118 Output: Urine 660 Other: Voiding Method Urinal Urinal # Voids 1 # Bowel Movements 1 0 - Labs CBC & Chem 7: 09/04/21 06:09 09/06/21 05:17 Labs: Abnormal Lab Results - Last 24 Hours (Table) 09/06/21 09/06/21 Range/Units 05:17 05:17 Chloride 112 H (98-107) mmol/L Total Bilirubin 1.6 H (0.2-1.3) mg/dL AST 132 H (17-59) U/L ALT 233 H (4-49) U/L Alkaline Phosphatase 303 H (38-126) U/L Total Protein 5.6 L (6.3-8.2) g/dL Albumin 2.9 L (3.5-5.0) g/dL Procalcitonin 0.31 H (0.02-0.09) ng/mL Assessment and Plan (1) Abdominal pain Current Visit: Yes Status: Acute Code(s): R10.9 - UNSPECIFIED ABDOMINAL PAIN SNOMED Code(s): 29020289
[2021-09-06] MEDS: LACTATED RINGERS 1,000 ML IV SCH (14:02)
--- NOTE | 2021-09-06 14:11 | P.PN ---
Subjective Progress Note Date: 09/06/21 Principal diagnosis: Transaminitis, right upper quadrant pain 81-year-old male who presented to the emergency department with complaints of epigastric and right upper quadrant pain since July. On admission was noted to have elevation in his total bilirubin as well as LFTs. He had no previous history of liver disease. The without any evidence of biliary dilation and a no rmal-appearing liver spleen stomach pancreas and gallbladder. He then underwent ultrasound of the gallbladder that showed no gallstones or dilated ducts. No focal liver defect. He continued to have elevation in his total bilirubin and an MRCP was ordered showing no definite choledochal lithiasis. There was gallbladder wall thickening that was indeterminant HIDA scan may be of benefit. However the patient underwent an ERCP yesterday for suspicion of biliary obstruction with biliary sphincterectomy and balloon sweep. There was no evidence of CBD stone, some sludge was seen exiting the ampulla. Today the patient is seen and examined with no complaints of abdominal pain. Repeat labs are improving total bilirubin 1.6 AST 132 ALT 233 alkaline phosphatase 303. Patient is tolerating his diet. Denies any nausea or vomiting. He has been afebrile. Objective - Vital Signs Vital signs: Vital Signs Temp 97.3 F L 09/06/21 08:00 Pulse 64 09/06/21 08:00 Resp 18 09/06/21 08:00 BP 131/47 09/06/21 08:00 Pulse Ox 98 09/06/21 08:00 Intake & Output 09/05/21 09/06/21 09/06/21 18:59 06:59 18:59 Intake Total 718 Output Total 660 Balance 58 Weight 95.254 kg Intake: IV 600 Oral 118 Output: Urine 660 Other: Voiding Method Urinal Urinal # Voids 1 # Bowel Movements 1 0 - Exam General appearance: The patient is alert, oriented, appears in no acute distress. HET: Head is normocephalic and atraumatic. Conjunctiva pink. Sclera anicteric. Neck: Supple without lymphadenopathy. Abdomen: Soft, nontender, nondistended with bowel sounds. No guarding or rigidity. Extremities: Normal skin color and turgor. No pedal edema Skin: No rashes, no jaundice Neurological: No focal deficits. Alert and oriented -3. - Labs CBC & Chem 7: 09/04/21 06:09 09/06/21 05:17 Labs: Abnormal Lab Results - Last 24 Hours (Table) 09/06/21 09/06/21 Range/Units 05:17 05:17 Chloride 112 H (98-107) mmol/L Total Bilirubin 1.6 H (0.2-1.3) mg/dL AST 132 H (17-59) U/L ALT 233 H (4-49) U/L Alkaline Phosphatase 303 H (38-126) U/L Total Protein 5.6 L (6.3-8.2) g/dL Albumin 2.9 L (3.5-5.0) g/dL Procalcitonin 0.31 H (0.02-0.09) ng/mL Assessment and Plan (1) Transaminitis Narrative/Plan: 81-year-old male who presented to the emergency department with complaints of intermittent right upper quadrant and epigastric pain. Patient was initially seen overnight in the hospital on August 20 through the and was discharged home. At that time he had a CT angiogram of the chest that did show a small calculus in the neck of the gallbladder. Patient denies any previous history of gallbladder disease or liver disease. At that time, his LFTs were unremarkable. She did have one episode of associated nausea with vomiting but none since. He had a CT of the abdomen and pelvis that did not show any abnormalities of the gallbladder, no gallstones or biliary dilation. He also underwent a ultrasound of the gallbladder again showing a normal CBD measuring 0.5 cm, no gallstones noted. However he did have elevated LFTs on admission. On admission his total bilirubin is 2.0, AST 289 ALT 159 alkaline phosphatase 181 and lipase 114. He also at that time did have mild elevation in his WBC at 13.8 with a stable hemoglobin of 14.9 INR 1.0. Yesterday he did have an increase in his total bilirubin up to as high as 5.6. Gen. surgery had seen patient and ask gastroenterology to evaluate further for transaminitis with possible CBD stone obstruction. Repeat labs today WBC 7.2 hemoglobin 13.7 platelet count 134,000 total bilirubin 4.6 AST 241 ALT 343 alkaline phosphatase 253. Hepatitis panel was negative. Patient does deny any previous history of alcoholism, no liver disease. Patient is undergoing MRCP today. Patient underwent ERCP with biliary sphincterectomy and balloon sweep with no evidence of CBD stone, some sludge exiting ampullary was noted. Improvement in transaminitis. Patient will be discharged home with outpatient follow-up with general surgery for cholecystectomy. Current Visit: Yes Status: Acute Code(s): R74.01 - ELEVATION OF LEVELS OF LIVER TRANSAMINASE LEVELS SNOMED Code(s): 838007246 (2) Abdominal pain Current Visit: Yes Status: Acute Code(s): R10.9 - UNSPECIFIED ABDOMINAL PAIN SNOMED Code(s): 85001034 Plan: 1. Continue symptomatic and supportive care 2. Patient is status post ERCP with sphincterectomy and balloon sweep 3. Patient may have a low-fat diet 4. Continue with recommendations per his Gen. surgery 5. Patient is cleared for discharge from gastroenterology Thank you for this consultation, we will continue to follow Dr. Layla Clayton I agree with the dictator's note, documented as a scribe by Payal Bell.
--- NOTE | 2021-09-06 17:34 | P.DS ---
Providers Date of admission: 09/04/21 09:33 Expected date of discharge: 09/06/21 Attending physician: Pepe Motta Consults: 09/02/21 14:13 Consult Physician Routine Consulting Provider: Brandon Salomon Consult Reason/Comments: EPIGASTRIC PAIN Do you want consulting provider notified?: Yes 09/04/21 08:00 Consult Physician Routine Consulting Provider: Cristy Clayton Consult Reason/Comments: Elevated liver enzymes, possible CBD Stone Do you want consulting provider notified?: Yes, Notify in am Primary care physician: [facility] Course: Chief Complaint: Epigastric pain This is a pleasant 81-year-old patient, follows Dr. Mukherjee. Seat Cover Installer Dr. Tsang. Chronic stable medical conditions include hyperlipidemia, hypertension, SLEEP apnea, kidney stones, CAD with stent of the RCA in December 2015, right diaphragm paresis Patient presented unit on August 20 with upper abdominal bandlike sensation that time questionable unstable angina. Patient seen by Dr. YASSINE Lerner from cardiology. Troponins were negative. Patient was told to follow with his operations trainer. Patient states his pain and greatly improving his left. Patient now presents with 1 day of duration of upper abdominal pain. Some nausea after eating. Feels like a tight band across the upper abdomen. No fever no chills. No dizziness no lightheadedness. No precordial pain. Patient said of elevated liver enzymes in the ER. Patient having significant upper abdominal pain. Surgery consulted September 03: Having right upper abdominal pain. Worsening LFT. [place] to have distal CBD stone. GI/Dr. Layla Clayton consulted. GI services will be available from tomorrow morning. Discussed with the patient, his and son of the bedside. IV fluids. September 04: Improved abdominal pain. Slight improvement LFTs. Clear liquids. Seen by GI/Dr. Hermosillo. ERCP tomorrow. Discussed with patient. Had the patient sit up in a chair. September 05: Underwent ERCP by Dr. Layla Clayton. No stone was seen. Slight sludge. Biliary sphincterotomy was done. Postprocedure laying in bed. Comfortable. 5. Bedside. Dietary advice. Hopefully patient can be discharged tomorrow. R epeat LFTs. Possible outpatient cholecystectomy. September 06: Feeling better today. Tolerated full liquids for breakfast. He'll be discharged on a soft bland low-fat diet. Patient had repeated LFTs in a week's time. Discussed with the patient to hold his Lipitor to that. He'll follow up with Dr. Marte as outpatient. Questions answered. Patient will complete another 5 days of Augmentin. Discussion and discharge planning more than 35 minutes Consultation: Dr. Marte from general surgery Dr. Layla Clayton from GI Past medical history to include: Hyperlipidemia lipidemia, hypertension, CAD with stent in 2016 to RCA, prostate disorder, kidney stones, right diaphragm paresis Social history: Alcohol occasionally. Nonsmoker. Family history: Hypertension, renal disease Physical examination: VITAL SIGNS: 97.3, 64, 18, 131/47, 98% room air GENERAL: Sitting at the edge of the bed awake, comfortable EYES: Pupils equal. Conjunctiva normal. HEENT: External appearance of nose and ears normal, oral cavity grossly normal. NECK: JVD not raised; masses not palpable. HEART: First and second heart sounds are normal; no edema. LUNGS: Respiratory rate normal; clear to auscultation. ABDOMEN: Soft, no tenderness, no guarding rigidity liver spleen not palpable, no masses palpable. PSYCH: Alert and oriented x3; mood and affect normal. INVESTIGATIONS, reviewed in the clinical context: September 06: Potassium 3.6 bilirubin 1.6 AST 132 ALT 233 procalcitonin 0.31 September 05: Potassium 3.6 total bilirubin 2 AST 154 ALT 270 MRCP [September 04]: No evidence of choledocholithiasis. Gallbladder wall thickening- Indeterminate. Aortic aneurysm 3.9 cm in the abdomen. September 04: White count 7.2 hemoglobin 13.7 platelets 134 potassium 3.5 crit 0.97 bilirubin 4.6 AST 241 AST 343 albumin 2.7 September 03: White count 9.2 hemoglobin 14.4 platelets 147 potassium 3.9 bilirubin 5.6 AST 354 ALT 454 procalcitonin 1.05 White count 13.8 hemoglobin 14.9 platelets 164 potassium 3.9 BUN 34 creatinine 1.13 total bilirubin 2 AST 289 ALT 159 alk phos 181 LDH 1161 CRP 5.6 lipase 114 Acute hepatitis screen for ABC: Negative Coronavirus [PCR]: Not detected Salicylates, acetaminophen unremarkable EKG tracing personally reviewed by me-sinus rhythm, nonspecific findings Computed tomography scan abdomen and pelvis: Unremarkable Ultrasound gallbladder: No gallstones or dilated ducts Previous labs: Patient had normal LFTs on 08/20/2021 Assessment and plan: -Patient presents with acute onset of upper abdominal pain with some tenderness in the right upper quadrant. Has an elevated white count. Acute elevation of LFTs including bilirubin. Had some nausea. Interestingly the patient's gallbladder ultrasound was unremarkable. Likely distal CBD gallstone- obstructive hepatitis. Patient may have passed a stone. ERCP: No stone found./Sludge. Sphincterotomy carried out. Discharged on low- fat diet. Hold Lipitor for a week. 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 To be followed. -Hypoalbuminemia Acute phase reactant Disposition: Home Outpatient labs: CMP: 7 days Plan - Discharge Summary New Discharge Prescriptions: New Amoxicillin/Potassium Clav [Augmentin 875-125 Tablet] 1 tab PO Q12HR #10 tab Continue Oxybutynin Chloride [Ditropan] 5 mg PO BID Atorvastatin [Lipitor] 80 mg PO HS #30 tab Metoprolol Tartrate [Lopressor] 25 mg PO BID #60 tab Aspirin EC [Ecotrin Low Dose] 81 mg PO HS Cholecalciferol [Vitamin D3 (25 Mcg = 1000 Iu)] 100 mcg PO DAILY Fish Oil/Dha/Epa [Fish Oil 1,200 mg Fish Oil] 1 cap PO DAILY Multivit-Min/FA/Lycopen/Lutein [Centrum Silver Tablet] 1 tab PO DAILY Tamsulosin [Flomax] 0.4 mg PO BID Melatonin 10 mg PO HS PRN PRN Reason: Insomnia Irbesartan [Avapro] 150 mg PO DAILY Nitroglycerin Sl Tabs [Nitrostat] 0.4 mg SL Q5M PRN PRN Reason: Chest Pain amLODIPine BESYLATE [Norvasc] 5 mg PO HS Vit C/E/Zn/Coppr/Lutein/Zeaxan [Preservision Areds 2 Softgel] 1 cap PO BID amLODIPine BESYLATE [Norvasc] 2.5 mg PO DAILY Discharge Medication List Oxybutynin Chloride [Ditropan] 5 mg PO BID 01/11/16 [History] Atorvastatin [Lipitor] 80 mg PO HS #30 tab 01/13/16 [Rx] Metoprolol Tartrate [Lopressor] 25 mg PO BID #60 tab 01/13/16 [Rx] Aspirin EC [Ecotrin Low Dose] 81 mg PO HS 03/25/18 [History] Cholecalciferol [Vitamin D3 (25 Mcg = 1000 Iu)] 100 mcg PO DAILY 03/25/18 [History] Fish Oil/Dha/Epa [Fish Oil 1,200 mg Fish Oil] 1 cap PO DAILY 03/25/18 [History] Multivit-Min/FA/Lycopen/Lutein [Centrum Silver Tablet] 1 tab PO DAILY 03/25/18 [History] Tamsulosin [Flomax] 0.4 mg PO BID 03/25/18 [History] Irbesartan [Avapro] 150 mg PO DAILY 02/21/21 [History] Melatonin 10 mg PO HS PRN 02/21/21 [History] Vit C/E/Zn/Coppr/Lutein/Zeaxan [Preservision Areds 2 Softgel] 1 cap PO BID 02/21/21 [History] Nitroglycerin Sl Tabs [Nitrostat] 0.4 mg SL Q5M PRN 08/20/21 [History] amLODIPine BESYLATE [Norvasc] 2.5 mg PO DAILY 09/02/21 [History] amLODIPine BESYLATE [Norvasc] 5 mg PO HS 09/02/21 [History] Amoxicillin/Potassium Clav [Augmentin 875-125 Tablet] 1 tab PO Q12HR #10 tab 09/06/21 [Rx] Follow up Appointment(s)/Referral(s): Brandon Salomon MD [Medical Doctor] - 09/14/21 10:00 am Mc Mukherjee DO [Primary Care Provider] - 1-2 days [facility], [NON-STAFF] - 1-2 Days [facility],[place] [NON-STAFF] - As Needed (Contact for possible shower chair) Patient Instructions/Handouts: Acute Abdominal Pain (DC) Activity/Diet/Wound Care/Special Instructions: hold lipitor for 7 days cmp - 7 days low fat diet Discharge/Stand Alone Forms: Who Do I Call?, Help In The Home, Personal Winding Machine Operator Discharge Disposition: HOME SELF-CARE
== END 2021-09-06 14:22 | disposition home or self-care (01) | DRG 446 ==
LOC: EC 01:38 → 6NMEDSUR 06:11 → OBSVTOIN 09-04 09:33
PROVIDERS: ADMIT Hospitalist; ATTEND Hospitalist
PROC: 0F798ZZ Dilation of Common Bile Duct, Via Natural or Artificial Opening Endoscopic (ICD-10-PCS; principal; 2021-09-05 11:00)
PROC: BF131ZZ Fluoroscopy of Gallbladder and Bile Ducts using Low Osmolar Contrast (ICD-10-PCS; 2021-09-05 11:00)
DX: K80.70 Calculus of gallbladder and bile duct without cholecystitis without obstruction (principal); E78.5 Hyperlipidemia, unspecified; E88.09 Other disorders of plasma-protein metabolism, not elsewhere classified; F51.04 Psychophysiologic insomnia; I10 Essential (primary) hypertension; I25.10 Atherosclerotic heart disease of native coronary artery without angina pectoris; I25.2 Old myocardial infarction; I71.4 Abdominal aortic aneurysm, without rupture; J98.6 Disorders of diaphragm; K75.9 Inflammatory liver disease, unspecified; K82.8 Other specified diseases of gallbladder; Z95.5 Presence of coronary angioplasty implant and graft; Z87.442 Personal history of urinary calculi; Z85.820 Personal history of malignant melanoma of skin; Z82.49 Family history of ischemic heart disease and other diseases of the circulatory system; Z79.899 Other long term (current) drug therapy; R79.89 Other specified abnormal findings of blood chemistry
CPT/HCPCS: 36415; 43260; 43262; 43277; 71045; 74177; 74181; 74330; 76705; 80053; 80074; 80143; 80179; 83615; 83690; 83735; 83880; 84145; 84484; 85025; 85610; 85730; 86140; 87635; 96361; 96365; 96375; 99285

== ENCOUNTER → 2021-10-03 | Outpatient (CLI) | payer MEDICARE ==
--- NOTE | 2021-10-03 18:34 | PN ---
PROGRESS NOTE Paul is doing very well. He is an 81-year-old male patient with obstructive sleep apnea diagnosed many years back, and the patient is coming in for an annual check. The patient has a ResMed AutoSet unit which is rattling and noisy. It turns off unexpectedly in the middle of the night. He is interested in updating his CPAP machine, and I think he falls outside the window of 5 years on his current machine. His weight is down by around 6 pounds. His [place] score is down to 6. He is using a Gupta FX nasal mask. He is benefitting from the treatment. Compliancy check was done. The patient has been averaging around 7.6 hours of CPAP use per night with a leak of 16 L/minute, and his AHI is down to 3.3. PHYSICAL EXAMINATION: VITAL SIGNS: BP is 131/75, pulse of 52, respirations 18, temperature 97.3, saturation 99% on room air. GENERAL APPEARANCE: Calm, comfortable. HEAD: Atraumatic, normocephalic. Neck is supple. No JVD. No goiter or neck masses. Mallampati class IV. LUNGS: Clear to auscultation. Heart sounds are regular rate and rhythm. Normal S1, S2. No S3, S4. No murmurs. ABDOMEN: Soft, nontender. No organomegaly. EXTREMITIES: No edema. No cyanosis or clubbing. Neurologically awake and alert. There is no focal neurological deficit. IMPRESSION: Symptomatic obstructive sleep apnea with an AHI of 39.8. He continues to have difficulties with his current CPAP unit. He remains on a pressure of 9 cm of water. Compliancy data was checked, and the patient is adequately using the machine. He is still interested in updating the machine because of the above-mentioned problems with his current unit. PLAN: 1. Order a new CPAP unit, which will be a ResMed Med AutoSet 11 at a pressure of 9 cm of water with a C-flex of 3. 2. Offer the patient a Gupta FX nasal mask. 3. Encourage weight loss. 4. Optimize sleep hygiene measures. 5. See me back in 30 to 90 days after obtaining the new CPAP machine for another compliancy check. MMODL / IJN: [id number] /
== END | disposition home or self-care (01) ==
LOC: SLEEP 13:16
PROVIDERS: ATTEND Internal Medicine Critical Care Medicine
DX: Z53.9 Procedure and treatment not carried out, unspecified reason (principal)

== ENCOUNTER 2021-10-20 07:41 | Day surgery (SDC) | payer MEDICARE ==
[2021-10-19 09:31] VITALS: BMI 31.5
--- NOTE | 2021-10-20 07:38 | P.GSHP ---
History of Present Illness H&P Date: 10/20/21 Chief Complaint: Chronic cholecystitis with choledocholithiasis 81-year-old male here today for elective cholecystectomy. Patient had recent hospitalization for choledocholithiasis. Doing well since discharge. Having mild right-sided flank pain at times. Tolerating diet. No nausea or vomiting. No change in the color of his skin urine or stool. Past Medical History Past Medical History: Cancer, Hearing Disorder / Deafness, Hyperlipidemia, Hypertension, Myocardial Infarction ([place]), Prostate Disorder, Sleep Apnea/CPAP/BIPAP Additional Past Medical History / Comment(s): kidney stones,LEFT SHOULDER DORON ANOMA REMOVED, GALLBLADDER PROBLEMS, CPAP MACHINE Last Myocardial Infarction Date:: 01/10/16 History of Any Multi-Drug Resistant Organisms: None Reported Past Surgical History: Adenoidectomy, Appendectomy, Heart Catheterization With Stent, Hernia Repair, Orthopedic Surgery, Prostate Surgery, Tonsillectomy Additional Past Surgical History / Comment(s): Hand surg; prostate surg, UMBILICAL HERNIA REPAIR, BILATERAL CATARACT SURGERY Past Anesthesia/Blood Transfusion Reactions: No Reported Reaction Date of Last Stent Placement:: DECEMBER 2015 Smoking Status: Never smoker - Past Family History Father Family Medical History: Hypertension, Renal Disease Mother Family Medical History: Myocardial Infarction ([place]) Sister(s) Family Medical History: Cancer Medications and Allergies Home Medications Medication Instructions Recorded Confirmed Type Oxybutynin Chloride [Ditropan] 5 mg PO BID 01/11/16 10/19/21 History Atorvastatin [Lipitor] 80 mg PO HS #30 tab 01/13/16 10/19/21 Rx Metoprolol Tartrate [Lopressor] 25 mg PO BID #60 tab 01/13/16 10/19/21 Rx Aspirin EC [Ecotrin Low Dose] 81 mg PO HS 03/25/18 10/19/21 History Cholecalciferol [Vitamin D3 (25 100 mcg PO DAILY 03/25/18 10/19/21 History Mcg = 1000 Iu)] Fish Oil/Dha/Epa [Fish Oil 1,200 1 cap PO DAILY 03/25/18 10/19/21 History mg Fish Oil] Multivit-Min/FA/Lycopen/Lutein 1 tab PO DAILY 03/25/18 10/19/21 History [Centrum Silver Tablet] Tamsulosin [Flomax] 0.4 mg PO BID 03/25/18 10/19/21 History Irbesartan [Avapro] 150 mg PO DAILY 02/21/21 10/19/21 History Melatonin 10 mg PO HS PRN 02/21/21 10/19/21 History Vit C/E/Zn/Coppr/Lutein/Zeaxan 1 cap PO BID 02/21/21 10/19/21 History [Preservision Areds 2 Softgel] Nitroglycerin Sl Tabs [Nitrostat] 0.4 mg SL Q5M PRN 08/20/21 10/19/21 History amLODIPine BESYLATE [Norvasc] 2.5 mg PO DAILY 09/02/21 10/19/21 History amLODIPine BESYLATE [Norvasc] 5 mg PO HS 09/02/21 10/19/21 History Allergies Allergy/AdvReac Type Severity Reaction Status Date / Time No Known Allergies Allergy Verified 10/19/21 08:52 Surgical - Exam Physical exam: General: Well-developed, well-nourished HEENT: Normocephalic, sclerae nonicteric Abdomen: Nontender, nondistended Extremities: No edema Neuro: Alert and oriented Assessment and Plan (1) Choledocholithiasis Narrative/Plan: Will proceed with laparoscopic cholecystectomy, possible open cholecystectomy at this time. Risks of bleeding, infection, bile leak, bile duct injury, retained common bile duct stone, trocar injury, conversion to an open procedure, hernia, anesthesia related complications were reviewed. The patient understands and wishes to proceed. Status: Acute Code(s): K80.50 - CALCULUS OF BILE DUCT W/O CHOLANGITIS OR CHOLECYST W/O OBST SNOMED Code(s): 727120298
[~2021-10-20 07:41] MED LIST changes: +ACETAMINOPHEN TAB 500 MG TAB PO PRN; +DEXAMETHASONE SOD PHOSPHATE 4 MG/ML 1 ML VIAL IV ONE; +HEPARIN SODIUM,PORCINE/PF 5,000 UNIT/0.5 ML SYRINGE SQ PRN; -HYDROmorphone 0.5 MG/0.5 ML SYRINGE IVP PRN; -LACTATED RINGERS 1,000 ML IV SCH; +MIDAZOLAM 2 MG/2 ML VIAL IV PRN
[2021-10-20] MEDS: LACTATED RINGERS 1,000 ML IV SCH ×2 (08:17→10:45)
[2021-10-20] MEDS ORDERED: ROCURONIUM 10 MG/ML (5 ML VIAL) IV ONE (08:47)
[2021-10-20] MEDS ORDERED: SUCCINYLCHOLINE CHLORIDE 100 MG/5 ML SYR IV ONE (08:47)
[2021-10-20] MEDS ORDERED: LIDOCAINE 1% INJ 10MG/ML (20 ML MDV) ONE (08:47)
[2021-10-20] MEDS ORDERED: HYDROmorphone (PF) 1 MG/ML ONE (08:47)
[2021-10-20] MEDS ORDERED: PROPOFOL 10 MG/ML 20 ML VIAL IV ONE (08:47)
[2021-10-20] MEDS ORDERED: fentaNYL (PF) 50 MCG/ML 2 ML AMP ONE (08:47)
[2021-10-20] MEDS ORDERED: GLYCOPYRROLATE 0.2 MG/ML 2 ML VIAL ONE (08:47)
[2021-10-20] MEDS ORDERED: NEOSTIGMINE 1 MG/ML 10 ML VIAL ONE (08:47)
[2021-10-20 09:05] LABS: Albumin 3.5 g/dL (3.5-5.0); Calcium 9.5 mg/dL (8.4-10.2); Potassium 4.3 mmol/L (3.5-5.1); Total Bilirubin 0.5 mg/dL (0.2-1.3)
[2021-10-20] MEDS ORDERED: BUPIVACAIN-EPI 0.25%-1:200,000 30 ML VIAL SQ ONE ×2 (09:11)
[2021-10-20] MEDS ORDERED: LACTATED RINGERS 1,000 ML IV ONE (09:52)
[2021-10-20] MEDS: HYDROmorphone 0.5 MG/0.5 ML SYRINGE IVP PRN ×3 (10:08→10:23)
--- NOTE | 2021-10-20 10:17 | P.OP ---
Date of Procedure: 10/20/21 Procedure(s) Performed: PREOPERATIVE DIAGNOSIS: Chronic cholecystitis with recent history of choledocholithiasis POSTOPERATIVE DIAGNOSIS: Same PROCEDURE: Laparoscopic cholecystectomy SURGEON: Umm EBL: Minimal see anesthesia record ANESTHESIA: Gen. COMPLICATIONS: None OPERATIVE PROCEDURE: The patient was brought and placed on the operating room table in the supine position. The patient was placed under general anesthesia at that time. The abdomen was prepped and draped in the usual sterile fashion. A small curvilinear supraumbilical incision was made. The fascia was grasped with the Carmen forceps. The fascia was retracted anteriorly. The Veress needle was advanced into the peritoneal cavity. The saline drop test was normal. Insufflation took place up to 15 mmHg. A 5 mm optical trocar was advanced and the peritoneal cavity. 2 additional 5 mm trochars were placed in the right upper quadrant under direct visualization. A 12 mm trocar was advanced into the epigastric incision site. The gallbladder was contracted and somewhat intrahepatic. The gallbladder was retracted superiorly and laterally. The peritoneum overlying the infundibulum was bluntly dissected. The patient's cystic duct was visualized. The junction between the cystic duct common and hepatic duct was identified. The critical view of safety was achieved after blunt dissection. The patient's cystic duct was larger than usual which is consistent with his recent history of choledocholithiasis. I was concerned the clip would not cross the entire cystic duct. A 2-0 Ethibond stitch was used to ligate the cystic duct tied down using the tie knot device. An additional clip was then placed on the patient's side as well. The cystic duct was then divided. The cystic artery was identified and clipped as well. A small vessel was seen along the gallbladder fossa and clipped as well. The gallbladder was then removed from the liver bed using electrocautery. The gallbladder was significantly adherent with chronic inflammatory changes to the gallbladder fossa. Small areas of bleeding were controlled using electrocautery. The gallbladder was then removed from the epigastric trocar site with an Endo Catch bag. The gallbladder fossa was irrigated with saline. There was no evidence of any bleeding or biliary drainage seen. The fascia at the 12 millimeter site was closed using a Sam-Ronda 0 Vicryl stitch. The trochars were then removed. The skin at all 4 sites was closed using a 4-0 Monocryl stitch. Skin glue was utilized on the incision sites. At the end of this procedure the sponge and needle counts were correct. DISPOSITION: Stable to the recovery room
[2021-10-20] MEDS ORDERED: HYDROmorphone 0.5 MG/0.5 ML SYRINGE IVP PRN (13:44)
[2021-10-20] MEDS ORDERED: ONDANSETRON 4 MG/2 ML VIAL IVP PRN (13:44)
[2021-10-20] MEDS ORDERED: HYDROcodone/APAP 5-325MG 1 EACH TAB PO PRN (13:44)
[2021-10-20] MEDS ORDERED: NALOXONE 0.4 MG/ML 1 ML VIAL IV PRN (13:44)
[2021-10-20] MEDS ORDERED: HYDROmorphone 1 MG/ML 1 ML SYRINGE IVP PRN (13:49)
[2021-10-20] MEDS ORDERED: NITROGLYCERIN SL TABS 0.4 MG TAB SUBLINGUAL PRN (18:03)
[2021-10-20] MEDS ORDERED: MELATONIN 5 MG TABLET PO PRN (18:03)
--- NOTE | 2021-10-20 18:05 | P.CONS ---
History of Present Illness - Reason for Consult Consult date: 10/20/21 Medical management Requesting physician: Brandon Salomon - Chief Complaint Cholecystectomy - History of Present Illness This is a pleasant 81-year-old patient, follows Dr. Mukherjee. 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 Tsang. Chronic stable medical conditions include hyperlipidemia, hy pertension, SLEEP apnea, kidney stones, CAD with stent of the RCA in December 2015, right diaphragm paresis. Patient on September [address] Layla Clayton. No stone. Some/. Very sphincterotomy done. Was scheduled for outpatient surgery for cholecystectomy. Artery today patient underwent laparoscopic cholecystectomy. Has not had any urine output. No problem with urine before. Does take Flomax at home. Clear liquids. No nausea vomiting. Some pain at the operative site. No fever no ch ills. Review of systems: GEN.: Tired EYES: None HEENT: None NECK: None RESPIRATORY: None CARDIOVASCULAR: None GASTROINTESTINAL: As above GENITOURINARY: None MUSCULOSKELETAL: None LYMPHATICS: None HEMATOLOGICAL: None PSYCHIATRY: None NEUROLOGICAL: None Past medical history to include: Hyperlipidemia lipidemia, hypertension, CAD with stent in 2016 to RCA, prostate disorder, kidney stones, right diaphragm paresis Social history: Alcohol occasionally. Nonsmoker. Family history: Hypertension, renal disease Physical examination: VITAL SIGNS: Afebrile, 69, 16, 1:30/79, 93% GENERAL: BMI 32.8, sitting up chair, awake, slightly tired. EYES: Pupils equal. Conjunctiva normal. HEENT: External appearance of nose and ears normal, oral cavity grossly normal. NECK: JVD not raised; masses not palpable. HEART: First and second heart sounds are normal; no edema. LUNGS: Respiratory rate normal; clear to auscultation. ABDOMEN: Soft, upper abdominal tenderness, no guarding rigidity, liver spleen not palpable, no masses palpable. PSYCH: Alert and oriented x3; mood and affect normal. MUSCULOSKELETAL:No Clubbing/cyanosis;muscles-grossly intact NEUROLOGICAL: Cranial nerves grossly intact; no facial asymmetry, power and sensation grossly intact. LYMPHATICS: No lymph nodes palpable in the axilla and neck INVESTIGATIONS, reviewed in the clinical context: Sodium 142 potassium 4.3 BUN 30 creatinine 1.08 Assessment and plan: -Chronic cholecystitis -CAD with a prior history of stent to the RCA in 2016 Aspirin 81 mg, Lipitor 80 mg, Lopressor 25 mg twice a day -Essential hypertension Amlodipine 2.5 mg daily at bedtime, Lopressor 25 mg twice a day, Avapro 150 mg daily, -Hyperlipidemia Lipitor 80 mg daily at bedtime-hold for a week -Chronic bladder dysfunction/incontinence Flomax 0.4 mg twice a day, Ditropan 5 mg twice a day -Chronic insomnia Melatonin 10 mg daily at bedtime when necessary -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 To be followed. Currently on clear liquids. Diet to be advanced per surgery. Getting IV fluids. Resume home medications. Activity as tolerated. Care was discussed w ith the patient. Questions answered. Thank you Dr. Marte Past Medical History Past Medical History: Cancer, Hearing Disorder / Deafness, Hyperlipidemia, Hyper tension, Myocardial Infarction ([place]), Prostate Disorder, Sleep Apnea/CPAP/BIPAP Additional Past Medical History / Comment(s): kidney stones,LEFT SHOULDER MELANOMA REMOVED, GALLBLADDER PROBLEMS, CPAP MACHINE Last Myocardial Infarction Date:: 01/10/16 History of Any Multi-Drug Resistant Organisms: None Reported Past Surgical History: Adenoidectomy, Appendectomy, Heart Catheterization With Stent, Hernia Repair, Orthopedic Surgery, Prostate Surgery, Tonsillectomy Additional Past Surgical History / Comment(s): Hand surg; prostate surg, UMBILICAL HERNIA REPAIR, BILATERAL CATARACT SURGERY Past Anesthesia/Blood Transfusion Reactions: No Reported Reaction Date of Last Stent Placement:: DECEMBER 2015 Smoking Status: Never smoker - Past Family History Father Family Medical History: Hypertension, Renal Disease Mother Family Medical History: Myocardial Infarction ([place]) Sister(s) Family Medical History: Cancer Medications and Allergies Home Medications Medication Instructions Recorded Confirmed Type Oxybutynin Chloride [Ditropan] 5 mg PO BID 01/11/16 10/20/21 History Atorvastatin [Lipitor] 80 mg PO HS #30 tab 01/13/16 10/20/21 Rx Metoprolol Tartrate [Lopressor] 25 mg PO BID #60 tab 01/13/16 10/20/21 Rx Aspirin EC [Ecotrin Low Dose] 81 mg PO HS 03/25/18 10/20/21 History Cholecalciferol [Vitamin D3 (25 100 mcg PO DAILY 03/25/18 10/19/21 History Mcg = 1000 Iu)] Fish Oil/Dha/Epa [Fish Oil 1,200 1 cap PO DAILY 03/25/18 10/20/21 History mg Fish Oil] Multivit-Min/FA/Lycopen/Lutein 1 tab PO DAILY 03/25/18 10/19/21 History [Centrum Silver Tablet] Tamsulosin [Flomax] 0.4 mg PO BID 03/25/18 10/20/21 History Irbesartan [Avapro] 150 mg PO DAILY 02/21/21 10/20/21 History Melatonin 10 mg PO HS PRN 02/21/21 10/19/21 History Vit C/E/Zn/Coppr/Lutein/Zeaxan 1 cap PO BID 02/21/21 10/19/21 History [Preservision Areds 2 Softgel] Nitroglycerin Sl Tabs [Nitrostat] 0.4 mg SL Q5M PRN 08/20/21 10/20/21 History amLODIPine BESYLATE [Norvasc] 2.5 mg PO DAILY 09/02/21 10/20/21 History amLODIPine BESYLATE [Norvasc] 5 mg PO HS 09/02/21 10/20/21 History oxyCODONE HCL [OxyIR] 5 mg PO Q6H PRN 3 Days #6 tab 10/20/21 Rx Allergies Allergy/AdvReac Type Severity Reaction Status Date / Time No Known Allergies Allergy Verified 10/19/21 08:52 Physical Exam Vitals: Vital Signs Temp Pulse Pulse Resp BP Pulse Ox 10/20/21 16:30 69 130/79 93 L 10/20/21 16:15 68 115/75 94 L 10/20/21 16:00 66 124/78 93 L 10/20/21 15:45 65 128/77 94 L 10/20/21 15:30 66 120/75 92 L 10/20/21 15:15 97.6 F 67 17 126/74 95 10/20/21 14:45 71 18 149/82 94 L 10/20/21 14:15 64 16 137/82 97 10/20/21 13:45 65 16 139/81 97 10/20/21 13:15 64 16 126/79 96 10/20/21 12:45 63 14 111/72 95 10/20/21 11:30 60 16 135/74 95 10/20/21 11:15 61 16 130/75 93 L 10/20/21 11:00 61 16 136/71 93 L 10/20/21 10:45 62 18 134/77 94 L 10/20/21 10:32 58 L 16 139/74 94 L 10/20/21 10:17 56 L 16 141/72 98 10/20/21 10:02 97.2 F L 73 16 145/73 94 L 10/20/21 08:10 97.1 F L 58 L 16 133/68 97 Intake and Output 10/20/21 10/20/21 10/20/21 06:59 14:59 22:59 Intake Total 2049 Output Total 20 Balance 2029 Intake: IV 2049 Output: Estimated Blood Loss 20 Other: Weight 103.6 kg Results CBC & Chem 7: 10/20/21 08:32 Labs: Abnormal Lab Results - Last 24 Hours (Table) 10/20/21 Range/Units 08:32 Chloride 111 H (98-107) mmol/L BUN 30 H (9-20) mg/dL Glucose 105 H (74-99) mg/dL Total Protein 6.0 L (6.3-8.2) g/dL
[2021-10-20] MEDS: IBUPROFEN 600 MG TAB PO SCH ×2 (18:28→19:10)
[2021-10-20] MEDS: D5-0.45% NACL WITH KCL 20MEQ/L 1,000 ML IV SCH ×2 (18:29→23:19)
[2021-10-20] MEDS: ACETAMINOPHEN TAB 325 MG TAB PO SCH ×2 (18:29→23:13)
[2021-10-20] MEDS: HEPARIN SODIUM,PORCINE/PF 5,000 UNIT/0.5 ML SYRINGE SQ SCH ×2 (18:29→23:13)
[2021-10-20] MEDS: OXYBUTYNIN CHLORIDE 5 MG TAB PO SCH (20:09)
[2021-10-20] MEDS: TAMSULOSIN 0.4 MG CAP.ER.24H PO SCH (20:09)
[2021-10-20] MEDS: DOCUSATE 100 MG CAP PO SCH (20:09)
[2021-10-20] MEDS: METOPROLOL TARTRATE 25 MG TAB PO SCH (20:12)
[2021-10-20] MEDS ORDERED: amLODIPine 5 MG TAB PO SCH (21:00)
[2021-10-20] MEDS ORDERED: ATORVASTATIN 80 MG TAB PO SCH (21:00)
[2021-10-20] MEDS ORDERED: ASPIRIN 81 MG PO SCH (21:00)
[2021-10-21] MEDS: IBUPROFEN 600 MG TAB PO SCH ×2 (00:57→09:28)
[2021-10-21] MEDS: ACETAMINOPHEN TAB 325 MG TAB PO SCH ×2 (04:13→12:38)
[2021-10-21 07:41] VITALS: RESP 18
[2021-10-21 08:54] LABS: Basophils # (A) 0.04 X 10*3/uL (0.00-0.10); Basophils % (A) 0.3 %; Eosinophils # (A) 0.01 X 10*3/uL (0.04-0.35); Eosinophils % (A) 0.1 %; HCT 42.7 % (39.6-50.0); HGB 13.2 g/dL (13.0-17.0); Immature Grans, Automated 0.3 %; Lymphocytes # (A) 1.22 X 10*3/uL (0.90-5.00); Lymphocytes % (A) 9.9 %; MCH 30.6 pg (27.0-32.0); MCHC 30.9 g/dL (32.0-37.0); MCV 98.8 fL (80.0-97.0); Mean Platelet Volume 11.1 fL (9.5-12.2); Monocytes # (A) 1.17 X 10*3/uL (0.20-1.00); Monocytes % (A) 9.5 %; NRBC Per 100 WBC 0 /100 WBCS (0.0-0.0); Neutrophils # (A) 9.85 X 10*3/uL (1.80-7.70); Neutrophils % (A) 79.9 %; Platelet Count 153 X 10*3/uL (140-440); RBC 4.32 X 10*6/uL (4.40-5.60); RDW 12.9 % (11.5-14.5); WBC 12.33 X 10*3/uL (4.50-10.00)
[2021-10-21] MEDS ORDERED: PANTOPRAZOLE 40 MG/10 ML VIAL IV SCH (09:00)
[2021-10-21] MEDS ORDERED: amLODIPine 2.5 MG TAB PO SCH (09:00)
[2021-10-21] MEDS ORDERED: LOSARTAN 50 MG TAB PO SCH (09:00)
[2021-10-21 09:03] LABS: African American GFR (CKD) 80.3 (60.0-200.0); Albumin 3.7 g/dL (3.8-4.9); Albumin/Globulin Ratio 1.85 (1.60-3.17); Anion Gap 12.5 mmol/L (10.00-18.00); BUN/Creat Ratio 21.2 Ratio (12.00-20.00); Blood Urea Nitrogen 21.2 mg/dL (9.0-27.0); Calcium 9.5 mg/dL (8.7-10.3); Carbon Dioxide 23.5 mmol/L (20.0-27.5); Non-African American GFR(CKD) 69.3 (60.0-200.0); Potassium 4.3 mmol/L (3.5-5.5); Total Bilirubin 0.5 mg/dL (0.30-1.20); Total Protein 5.7 g/dL (6.2-8.2)
[2021-10-21] MEDS: TAMSULOSIN 0.4 MG CAP.ER.24H PO SCH (09:17)
[2021-10-21] MEDS: METOPROLOL TARTRATE 25 MG TAB PO SCH (09:17)
[2021-10-21] MEDS: DOCUSATE 100 MG CAP PO SCH (09:17)
[2021-10-21] MEDS: HEPARIN SODIUM,PORCINE/PF 5,000 UNIT/0.5 ML SYRINGE SQ SCH (09:17)
[2021-10-21] MEDS: OXYBUTYNIN CHLORIDE 5 MG TAB PO SCH (09:17)
--- NOTE | 2021-10-21 11:10 | P.DS ---
Providers Expected date of discharge: 10/21/21 Attending physician: Brandon Salomon Consults: 10/20/21 13:46 Consult Physician Routine Consulting Provider: Pepe Motta Consult Reason/Comments: med mgmt Do you want consulting provider notified?: Yes Primary care physician: Mc Mukherjee - Discharge Diagnosis(es) (1) Choledocholithiasis Patient doing well today. Was admitted yesterday after her laparoscopic cholecystectomy. The patient did have significant inflammatory changes. Postoperatively the patient was complaining of dizziness. We decided to monitor the patient overnight. He is doing well today. No pain. Labs reviewed. No significant drop in hemoglobin. Only mild elevation of his liver enzymes. December discharge. Follow-up one week. Current Visit: No Status: Acute Plan - Discharge Summary Discharge Rx Participant: Yes New Discharge Prescriptions: New oxyCODONE HCL [OxyIR] 5 mg PO Q6H PRN 3 Days #6 tab PRN Reason: Breakthrough Pain No Action Oxybutynin Chloride [Ditropan] 5 mg PO BID Atorvastatin [Lipitor] 80 mg PO HS #30 tab Metoprolol Tartrate [Lopressor] 25 mg PO BID #60 tab Aspirin EC [Ecotrin Low Dose] 81 mg PO HS Cholecalciferol [Vitamin D3 (25 Mcg = 1000 Iu)] 100 mcg PO DAILY Fish Oil/Dha/Epa [Fish Oil 1,200 mg Fish Oil] 1 cap PO DAILY Multivit-Min/FA/Lycopen/Lutein [Centrum Silver Tablet] 1 tab PO DAILY Tamsulosin [Flomax] 0.4 mg PO BID Melatonin 10 mg PO HS PRN PRN Reason: Insomnia Irbesartan [Avapro] 150 mg PO DAILY Nitroglycerin Sl Tabs [Nitrostat] 0.4 mg SL Q5M PRN PRN Reason: Chest Pain amLODIPine BESYLATE [Norvasc] 5 mg PO HS Vit C/E/Zn/Coppr/Lutein/Zeaxan [Preservision Areds 2 Softgel] 1 cap PO BID amLODIPine BESYLATE [Norvasc] 2.5 mg PO DAILY Discharge Medication List Oxybutynin Chloride [Ditropan] 5 mg PO BID 01/11/16 [History] Atorvastatin [Lipitor] 80 mg PO HS #30 tab 01/13/16 [Rx] Metoprolol Tartrate [Lopressor] 25 mg PO BID #60 tab 01/13/16 [Rx] Aspirin EC [Ecotrin Low Dose] 81 mg PO HS 03/25/18 [History] Cholecalciferol [Vitamin D3 (25 Mcg = 1000 Iu)] 100 mcg PO DAILY 03/25/18 [History] Fish Oil/Dha/Epa [Fish Oil 1,200 mg Fish Oil] 1 cap PO DAILY 03/25/18 [History] Multivit-Min/FA/Lycopen/Lutein [Centrum Silver Tablet] 1 tab PO DAILY 03/25/18 [History] Tamsulosin [Flomax] 0.4 mg PO BID 03/25/18 [History] Irbesartan [Avapro] 150 mg PO DAILY 02/21/21 [History] Melatonin 10 mg PO HS PRN 02/21/21 [History] Vit C/E/Zn/Coppr/Lutein/Zeaxan [Preservision Areds 2 Softgel] 1 cap PO BID 02/21/21 [History] Nitroglycerin Sl Tabs [Nitrostat] 0.4 mg SL Q5M PRN 08/20/21 [History] amLODIPine BESYLATE [Norvasc] 2.5 mg PO DAILY 09/02/21 [History] amLODIPine BESYLATE [Norvasc] 5 mg PO HS 09/02/21 [History] oxyCODONE HCL [OxyIR] 5 mg PO Q6H PRN 3 Days #6 tab 10/20/21 [Rx] Follow up Appointment(s)/Referral(s): Brandon Salomon MD [Medical Doctor] - 11/02/21 8:50 am Patient Instructions/Handouts: *[facility] - Laparoscopic Cholecystectomy Disc harge Instructions, *[facility] - Managing Your Pain After Surgery Without Opioids, *[facility] - (Anesthesia) Discharge Instructions Outpatient Surgery, Low Fat Diet (GEN)
[2021-10-21 14:45] VITALS: BP 162/81; PULSE 58; TEMP 98.4
--- NOTE | 2021-10-21 18:25 | P.PN ---
Progress Note - Text Progress Note Date: 10/21/21 - Chief Complaint Cholecystectomy This is a pleasant 81-year-old patient, follows Dr. Mukherjee. [employer] Pl[employer] Dr. Tsang. Chronic stable medical conditions include hyperlipidemia, hypertension, SLEEP apnea, kidney stones, CAD with stent of the RCA in December 2015, right diaphragm paresis. Patient on September [address] Layla Clayton. No stone. Some/. Very sphincterotomy done. Was scheduled for outpatient surgery for cholecystectomy. Artery today patient underwent laparoscopic cholecystectomy. Has not had any urine output. No problem with urine before. Does take Flomax at home. Clear liquids. No nausea vomiting. Some pain at the operative site. No fever no chills. October 21: Tolerating diet. Pain control. No nausea vomiting. Feeling good. Cleared by surgery to go home. Discussed with patient. After bathroom. Didn't ambulate. Current medications reviewed Past medical history to include: Hyperlipidemia lipidemia, hypertension, CAD with stent in 2015 to RCA, prostate disorder, kidney stones, right diaphragm paresis Social history: Alcohol occasionally. Nonsmoker. Family history: Hypertension, renal disease Physical examination: VITAL SIGNS: 98.4, 58, 18, 162/81, 95% room air GENERAL: Sitting up, comfortable EYES: Pupils equal. Conjunctiva normal. HEENT: External appearance of nose and ears normal, oral cavity grossly normal. NECK: JVD not raised; masses not palpable. HEART: First and second heart sounds are normal; no edema. LUNGS: Respiratory rate normal; clear to auscultation. ABDOMEN: Soft, mild upper abdominal tenderness, no guarding rigidity, liver spleen not palpable, no masses palpable. PSYCH: Alert and oriented x3; mood and affect normal. MUSCULOSKELETAL:No Clubbing/cyanosis;muscles-grossly intact NEUROLOGICAL: Cranial nerves grossly intact; no facial asymmetry, power and s ensation grossly intact. LYMPHATICS: No lymph nodes palpable in the axilla and neck INVESTIGATIONS, reviewed in the clinical context: October 21: White count 12.3 hemoglobin 13.2 potassium 4.3 creatinine 1.0 Sodium 142 potassium 4.3 BUN 30 creatinine 1.08 Assessment and plan: -Chronic cholecystitis Laparoscopic cholecystectomy by Dr. 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 To be followed. Stable. Continue current medications. Follow up with Dr. Mukherjee upon discharge Thank you Dr. Marte
== END 2021-10-21 16:11 ==
LOC: OR 07:41 → 4SSUR 14:53 → OR 10-21 16:11
PROVIDERS: ATTEND Surgery
DX: K81.1 Chronic cholecystitis (principal); E78.5 Hyperlipidemia, unspecified; I10 Essential (primary) hypertension; I25.2 Old myocardial infarction; G47.33 Obstructive sleep apnea (adult) (pediatric); H91.90 Unspecified hearing loss, unspecified ear; Z87.442 Personal history of urinary calculi; Z85.820 Personal history of malignant melanoma of skin; Z90.49 Acquired absence of other specified parts of digestive tract; Z95.5 Presence of coronary angioplasty implant and graft; Z98.890 Other specified postprocedural states; Z98.42 Cataract extraction status, left eye; Z98.41 Cataract extraction status, right eye; Z82.49 Family history of ischemic heart disease and other diseases of the circulatory system; Z84.1 Family history of disorders of kidney and ureter; Z80.9 Family history of malignant neoplasm, unspecified; Z79.82 Long term (current) use of aspirin; Z79.899 Other long term (current) drug therapy
CPT/HCPCS: 88304; 80053 ×2; 85025; 47562; J1100; J2710; J0690; J2405; J2001; J3010; J1170 ×2; J0330; J2704; C9113; J1644 ×2

== ENCOUNTER 2021-11-08 15:17 | Emergency (ER) | payer MEDICARE ==
[2021-11-08 15:56] VITALS: RESP 18
[2021-11-08] MEDS ORDERED: HYDROmorphone 0.5 MG/0.5 ML SYRINGE IVP STA (16:38)
--- NOTE | 2021-11-08 16:41 | ED ---
General Adult HPI - General Chief complaint: Recheck/Abnormal Lab/Rx Stated complaint: post op, back pain Time Seen by Provider: 11/08/21 16:20 Source: patient, family, RN notes reviewed Mode of arrival: ambulatory Limitations: no limitations - History of Present Illness Initial comments: Patient is a pleasant 81-year-old male presenting to the emergency Department with complaints of back pain. Patient did have a cholecystectomy done 2-3 weeks ago here with Dr. Marte. Patient has had discomfort since that time. Discomfort is slowly been worsening. Patient did have a fall yesterday however did not land on his back. Discomfort has increased since that time. Discomfort does increase with going from sitting to standing as well as other movements. No abdominal pain. No leg weakness or loss of sensation. No incontinence or retention of bowel or bladder products. Patient does have history of some chronic back discomfort previously however that has been mild and patient has only seen chiropractor for the past - Related Data Home Medications Medication Instructions Recorded Confirmed Oxybutynin Chloride [Ditropan] 5 mg PO BID 01/11/16 11/08/21 Aspirin EC [Ecotrin Low Dose] 81 mg PO HS 03/25/18 11/08/21 Cholecalciferol [Vitamin D3 (25 100 mcg PO DAILY 03/25/18 11/08/21 Mcg = 1000 Iu)] Fish Oil/Dha/Epa [Fish Oil 1,200 1 cap PO DAILY 03/25/18 11/08/21 mg Fish Oil] Multivit-Min/FA/Lycopen/Lutein 1 tab PO DAILY 03/25/18 11/08/21 [Centrum Silver Tablet] Tamsulosin [Flomax] 0.4 mg PO BID 03/25/18 11/08/21 Irbesartan [Avapro] 150 mg PO DAILY 02/21/21 11/08/21 Melatonin 10 mg PO HS PRN 02/21/21 11/08/21 Vit C/E/Zn/Coppr/Lutein/Zeaxan 1 cap PO BID 02/21/21 11/08/21 [Preservision Areds 2 Softgel] Nitroglycerin Sl Tabs [Nitrostat] 0.4 mg SL Q5M PRN 08/20/21 11/08/21 amLODIPine BESYLATE [Norvasc] 2.5 mg PO DAILY 09/02/21 11/08/21 amLODIPine BESYLATE [Norvasc] 5 mg PO HS 09/02/21 11/08/21 Albuterol Inhaler [Ventolin Hfa 2 puff INHALATION RT-QID PRN 11/08/21 11/08/21 Inhaler] Previous Rx's Medication Instructions Recorded Atorvastatin [Lipitor] 80 mg PO HS #30 tab 01/13/16 Metoprolol Tartrate [Lopressor] 25 mg PO BID #60 tab 01/13/16 Allergies Allergy/AdvReac Type Severity Reaction Status Date / Time No Known Allergies Allergy Verified 11/08/21 16:58 Review of Systems ROS Statement: Those systems with pertinent positive or pertinent negative responses have been documented in the HPI. ROS Other: All systems not noted in ROS Statement are negative. Constitutional: Denies: fever Eyes: Denies: eye pain ENT: Denies: ear pain Respiratory: Denies: cough, dyspnea Cardiovascular: Denies: chest pain Endocrine: Denies: fatigue Gastrointestinal: Denies: abdominal pain Genitourinary: Denies: dysuria Musculoskeletal: Reports: back pain Skin: Denies: rash Neurological: Denies: weakness Past Medical History Past Medical History: Cancer, Hyperlipidemia, Hypertension, Myocardial Infarction ([place]), Prostate Disorder, Sleep Apnea/CPAP/BIPAP Additional Past Medical History / Comment(s): kidney stones,LEFT REAR SHOULDER MELANOMA REMOVED Last Myocardial Infarction Date:: 01/10/16 History of Any Multi-Drug Resistant Organisms: None Reported Past Surgical History: Adenoidectomy, Appendectomy, Orthopedic Surgery, Tonsillectomy Additional Past Surgical History / Comment(s): Hand surg; prostate surg Past Anesthesia/Blood Transfusion Reactions: No Reported Reaction Past Psychological History: No Psychological Hx Reported Smoking Status: Never smoker Past Alcohol Use History: Occasional Past Drug Use History: None Reported - Past Family History Father Family Medical History: Hypertension, Renal Disease Mother Family Medical History: Myocardial Infarction ([place]) Sister(s) Family Medical History: Cancer General Exam Limitations: no limitations General appearance: alert, in no apparent distress Head exam: Present: normocephalic Eye exam: Present: normal appearance Neck exam: Present: normal inspection Respiratory exam: Present: normal lung sounds bilaterally Cardiovascular Exam: Present: regular rate, normal rhythm Expanded Peripheral pulses: 2+: Posterior Tibialis (R), Posterior Tibialis (L) GI/Abdominal exam: Present: soft. Absent: distended, tenderness, pulsatile mass Extremities exam: Present: normal inspection Back exam: Present: normal inspection, other (Patient identifies area discomfort approximately T12 through L2 and laterally approximate 10 centimeters each side). Absent: tenderness Neurological exam: Present: alert, oriented X3, CN II-XII intact. Absent: motor sensory deficit Expanded Sensory exam: Lower Extremity Light Touch: Normal Motor strength exam: RUE: 5, LUE: 5, RLE: 5, LLE: 5 Psychiatric exam: Present: normal affect, normal mood Skin exam: Present: normal color Course Vital Signs 11/08/21 15:53 Temperature 97.9 F Pulse Rate 67 Respiratory 18 Rate Blood Pressure 141/84 O2 Sat by Pulse 91 L Oximetry Medical Decision Making - Medical Decision Making Patient reevaluated and resting comfortable in bed. Patient is improved. Patient and family updated on results and need for follow-up. - Lab Data Result diagrams: 11/08/21 17:02 11/08/21 17:02 Lab Results 11/08/21 11/08/21 11/08/21 Range/Units 17:02 17:02 17:02 WBC 7.1 (3.8-10.6) k/uL RBC 4.58 (4.30-5.90) m/uL Hgb 14.5 (13.0-17.5) gm/dL Hct 44.6 (39.0-53.0) % MCV 97.3 (80.0-100.0) fL MCH 31.6 (25.0-35.0) pg MCHC 32.4 (31.0-37.0) g/dL RDW 13.3 (11.5-15.5) % Plt Count 166 (150-450) k/uL MPV 8.1 Neutrophils % 63 % Lymphocytes % 21 % Monocytes % 7 % Eosinophils % 6 % Basophils % 1 % Neutrophils # 4.5 (1.3-7.7) k/uL Lymphocytes # 1.5 (1.0-4.8) k/uL Monocytes # 0.5 (0-1.0) k/uL Eosinophils # 0.4 (0-0.7) k/uL Basophils # 0.1 (0-0.2) k/uL PT 10.4 (9.0-12.0) sec INR 0.9 (<1.2) APTT 25.4 (22.0-30.0) sec Sodium 141 (137-145) mmol/L Potassium 4.4 (3.5-5.1) mmol/L Chloride 109 H (98-107) mmol/L Carbon Dioxide 24 (22-30) mmol/L Anion Gap 8 mmol/L BUN 26 H (9-20) mg/dL Creatinine 1.02 (0.66-1.25) mg/dL Est GFR (CKD-EPI)AfAm 78 (>60 ml/min/1.73 sqM) Est GFR (CKD-EPI)NonAf 68 (>60 ml/min/1.73 sqM) Glucose 98 (74-99) mg/dL Calcium 9.2 (8.4-10.2) mg/dL Total Bilirubin 0.6 (0.2-1.3) mg/dL AST 32 (17-59) U/L ALT 34 (4-49) U/L Alkaline Phosphatase 69 (38-126) U/L Total Protein 6.7 (6.3-8.2) g/dL Albumin 3.8 (3.5-5.0) g/dL Amylase 54 (30-110) U/L Lipase 107 (23-300) U/L - Radiology Data Radiology results: report reviewed (CT abdomen pelvis shows no leak. No acute abdomen abnormality. Stable abdominal aortic minimal aneurysm.) Disposition Clinical Impression: Back pain Disposition: HOME SELF-CARE Condition: Stable Instructions (If sedation given, give patient instructions): Back Pain (ED) Additional Instructions: Please do follow-up to primary care physician in the next couple days for recheck. If symptoms continue consider physical therapy. Symptoms are prolonged may need back doctor referral or MRI. Return for loss of control of bowel or bladder, weakness, worsening or changing symptoms or other concerns. Is patient prescribed a controlled substance at d/c from ED?: No Referrals: Mc Mukherjee DO [Primary Care Provider] - 1-2 days Time of Disposition: 18:45
[2021-11-08 17:06] LABS: Basophils # (A) 0.1 k/uL (0-0.2); Basophils % (A) 1 %; Eosinophils # (A) 0.4 k/uL (0-0.7); Eosinophils % (A) 6 %; HCT 44.6 % (39.0-53.0); HGB 14.5 gm/dL (13.0-17.5); Lymphocytes # (A) 1.5 k/uL (1.0-4.8); Lymphocytes % (A) 21 %; MCH 31.6 pg (25.0-35.0); MCHC 32.4 g/dL (31.0-37.0); MCV 97.3 fL (80.0-100.0); Mean Platelet Volume 8.1; Monocytes # (A) 0.5 k/uL (0-1.0); Monocytes % (A) 7 %; Neutrophils # (A) 4.5 k/uL (1.3-7.7); Neutrophils % (A) 63 %; Platelet Count 166 k/uL (150-450); RBC 4.58 m/uL (4.30-5.90); RDW 13.3 % (11.5-15.5); WBC 7.1 k/uL (3.8-10.6)
[2021-11-08 17:15] LABS: Albumin 3.8 g/dL (3.5-5.0); Calcium 9.2 mg/dL (8.4-10.2); Potassium 4.4 mmol/L (3.5-5.1); Total Bilirubin 0.6 mg/dL (0.2-1.3); Total Protein 6.7 g/dL (6.3-8.2)
[2021-11-08 17:21] LABS: INR 0.9 (<1.2); Partial Thromboplastin Time 25.4 sec (22.0-30.0); Prothrombin Time 10.4 sec (9.0-12.0)
--- NOTE | 2021-11-08 18:33 | CT ---
EXAMINATION TYPE: CT abdomen pelvis w con DATE OF EXAM: 11/08/2021 COMPARISON: 09/02/2021 HISTORY: abdominal/back pain post wan CT DLP: 1402.9 mGycm Automated exposure control for dose reduction was used. CONTRAST: Performed with IV Contrast, patient injected with 100 mL of Isovue 300. Images obtained from the diaphragm to the floor of the pelvis with IV contrast. Lung bases are clear of consolidation. There is no pleural effusion. Heart size is normal. There is n o pericardial effusion. Liver is intact. The bile ducts are not dilated. There are clips from cholecystectomy. Spleen is inta ct. Stomach is intact. There is no pancreatic mass. There is no adrenal mass. Kidneys show satisfactory contrast opacification. There are bilateral multi ple renal parapelvic cysts. No hydronephrosis. There are bilateral renal calculi measuring up to 3 mm . The ureters are not dilated. There is no retroperitoneal adenopathy. Bladder distends smoothly. The re is no inguinal hernia. Prostate measures 5.3 cm. There is no pelvic mass. There are multiple sigmoid diverticula. No diverticulitis. Appendix not seen. No sign of thickened ap pendix. There is no mesenteric edema. There is no ascites or free air. No evidence of a bowel obstruction. Th ere is 3.2 cm aneurysm of the lower abdominal aorta. Lumbar vertebrae have normal alignment. There is no compression fracture. There is degenerative spur formation. The bony pelvis is intact. The hip joints are intact. Sacroiliac joints are intact. IMPRESSION: Colonic diverticulosis without diverticulitis. Renal parapelvic cysts. No evidence of a bile leak. No dilated ducts. No free fluid. Stable abdominal aortic minimal aneurysm.
[2021-11-08] MEDS ORDERED: traMADol 50 MG STARTER PACK 3 TAB BTL PO STA (18:44)
[2021-11-08 18:52] VITALS: BP 138/69; PULSE 56; TEMP 98.8
== END 2021-11-08 18:59 | disposition home or self-care (01) ==
LOC: EC 15:17
DX: M54.50 Low back pain, unspecified (principal); I10 Essential (primary) hypertension; Z82.49 Family history of ischemic heart disease and other diseases of the circulatory system
CPT/HCPCS: 36415; 80053; 82150; 83690; 85025; 85610; 85730; 74177; 99284; 96374; J1170; Q9967

== ENCOUNTER → 2021-12-14 | Outpatient (CLI) | payer MEDICARE ==
--- NOTE | 2021-12-15 01:04 | CT ---
EXAMINATION TYPE: CT angio chest DATE OF EXAM: 12/14/2021 COMPARISON: CT dated 08/20/2021 HISTORY: thoracic aneurysm CT DLP: 1204 mGy.cm. Automated Exposure Control for Dose Reduction was Utilized. TECHNIQUE AND CONTRAST: CTA scan of the thorax is performed without and with IV Contrast, patient injected with 100ml mL of I sovue 370, thoracic aortic angiogram protocol. MIP Images are created on an independent workstation and reviewed. FINDINGS: Stable ascending aortic aneurysm measuring up to 4.7 cm. Scattered arterial atherosclerotic calcifica tions including coronary arterial calcifications. Infrarenal abdominal aortic aneurysm, not completel y included in the scan and appreciated in October 2021 CT scan. Otherwise unremarkable remainder of the thoracic and upper abdominal aorta. No major or central pulmonary embolism. No gross cardiomegaly. Unremarkable lungs. Patent central airways. No pleural or pericardial effusion. No pathologically enl arged lymph nodes in the chest. Previous cholecystectomy. Hyperdense areas are seen within the right kidney, possibly representing hemorrhagic/proteinaceous cysts. This can be confirmed renal MRI. Bilat eral simple renal cysts are also seen. Duodenal diverticulum. Scattered colonic diverticulosis. No ag gressive bone lesion. IMPRESSION: Stable ascending aortic aneurysm measuring up to 4.7 cm without interval progression. Other incidenta l findings as described above.
== END | disposition home or self-care (01) ==
LOC: RADCTMAIN 12:56
PROVIDERS: ATTEND Internal Medicine Cardiovascular Disease
DX: I71.2 Thoracic aortic aneurysm, without rupture (principal)
CPT/HCPCS: 82565; 84520; 71275; 36415; Q9967

== ENCOUNTER → 2022-03-23 | Outpatient (CLI) | payer MEDICARE ==
--- NOTE | 2022-03-23 16:22 | CT ---
EXAMINATION TYPE: CT brain wo con CT DLP: 1192 mGycm, Automated exposure control for dose reduction was used. DATE OF EXAM: 03/23/2022 2:05 PM COMPARISON: None. CLINICAL INDICATION:Male, 81 years old with history of unspecified fall, pt states he has been having random falls and leg weakness. TECHNIQUE: Brain: Multiple axial CT images of the brain were obtained without IV contrast. Coronal and sagittal reformats reviewed. FINDINGS: Brain: Extra-axial spaces: No abnormal extra-axial fluid collections. Ventricular system: Dilation of the bilateral lateral ventricles most prominently involving the poste rior horns. No significant dilatation of the bilateral temporal horns. Hyperdense round structure dem onstrated at the foramen of Monro measuring 1 cm (series 3, image 28). Cerebral parenchyma: No acute intraparenchymal hemorrhage or mass effect. The samano-white junction is well differentiated. Cerebral volume loss. Cerebellum: Unremarkable. Mass effect: No evidence of midline shift. Intracranial vasculature: Atherosclerotic calcifications of the intracranial vessels. Soft tissues: Normal. Calvarium/osseous structures: No depressed skull fracture. Paranasal sinuses and mastoid air cells: Clear Visualized orbits: Bilateral aphakia IMPRESSION: * No CT evidence of acute intracranial intracranial hemorrhage or ischemia. * Hyperdense 1 cm structure at the foramen of Monro most consistent with a colloid cyst. Mild promin ence of the lateral ventricles. This is most prominent involving the posterior horns, possibly relate d to cerebral atrophy versus hydrocephalus. Neurosurgery consult may be of benefit if clinically symp tomatic.
== END | disposition home or self-care (01) ==
LOC: RADCTMAIN 13:23
PROVIDERS: ATTEND Family Medicine
DX: Z09 Encounter for follow-up examination after completed treatment for conditions other than malignant neoplasm (principal); W19.XXXA Unspecified fall, initial encounter
CPT/HCPCS: 70450

== ENCOUNTER 2022-05-04 16:27 | Emergency (ER) | payer MEDICARE ==
[2022-05-04] MEDS ORDERED: SODIUM CHLORIDE 0.9% 1,000 ML IV STA (17:50)
[2022-05-04] MEDS ORDERED: ACETAMINOPHEN TAB 325 MG TAB PO STA (17:50)
--- NOTE | 2022-05-04 17:55 | ED ---
General Adult HPI - General Chief complaint: Abdominal Pain Stated complaint: ABD pain, shakey Time Seen by Provider: 05/04/22 17:33 Source: patient, RN notes reviewed Mode of arrival: ambulatory Limitations: no limitations - History of Present Illness Initial comments: 81-year-old male presents to the emergency department from home for evaluation of lower abdominal pain and loss of appetite, onset this afternoon. Upon arrival, patient is found to be febrile and did report some shortness of breath while waiting in triage. Patient states he was seen by his PCP this morning and felt perfectly fine at that time. States his visit was an annual physical exam and he had no complaints at that time. States as the afternoon has progressed he has been shivering an feeling poorly. Denies headache, dizziness, chest pain, difficulty breathing, nausea, vomiting, diarrhea, dysuria, hematuria, or lower extremity edema. No history of diverticulitis or diverticulosis. Does report previous appendectomy and cholecystectomy. - Related Data Home Medications Medication Instructions Recorded Confirmed Oxybutynin Chloride [Ditropan] 5 mg PO BID 01/11/16 11/08/21 Aspirin EC [Ecotrin Low Dose] 81 mg PO HS 03/25/18 11/08/21 Cholecalciferol [Vitamin D3 (25 100 mcg PO DAILY 03/25/18 11/08/21 Mcg = 1000 Iu)] Fish Oil/Dha/Epa [Fish Oil 1,200 1 cap PO DAILY 03/25/18 11/08/21 mg Fish Oil] Multivit-Min/FA/Lycopen/Lutein 1 tab PO DAILY 03/25/18 11/08/21 [Centrum Silver Tablet] Tamsulosin [Flomax] 0.4 mg PO BID 03/25/18 11/08/21 Irbesartan [Avapro] 150 mg PO DAILY 02/21/21 11/08/21 Melatonin [Melatonin ER] 10 mg PO HS PRN 02/21/21 11/08/21 Vit C/E/Zn/Coppr/Lutein/Zeaxan 1 cap PO BID 02/21/21 11/08/21 [Preservision Areds 2 Softgel] Nitroglycerin Sl Tabs [Nitrostat] 0.4 mg SL Q5M PRN 08/20/21 11/08/21 amLODIPine BESYLATE [Norvasc] 2.5 mg PO DAILY 09/02/21 11/08/21 amLODIPine BESYLATE [Norvasc] 5 mg PO HS 09/02/21 11/08/21 Albuterol Inhaler [Ventolin Hfa 2 puff INHALATION RT-QID PRN 11/08/21 11/08/21 Inhaler] Previous Rx's Medication Instructions Recorded Atorvastatin [Lipitor] 80 mg PO HS #30 tab 01/13/16 Metoprolol Tartrate [Lopressor] 25 mg PO BID #60 tab 01/13/16 Ciprofloxacin HCl [Cipro] 500 mg PO BID 14 Days #28 tab 05/04/22 Allergies Allergy/AdvReac Type Severity Reaction Status Date / Time No Known Allergies Allergy Verified 05/04/22 16:52 Review of Systems ROS Statement: Those systems with pertinent positive or pertinent negative responses have been documented in the HPI. ROS Other: All systems not noted in ROS Statement are negative. Past Medical History Past Medical History: Cancer, Hyperlipidemia, Hypertension, Myocardial Infarction (MS), Prostate Disorder, Sleep Apnea/CPAP/BIPAP Additional Past Medical History / Comment(s): kidney stones,LEFT REAR SHOULDER MELANOMA REMOVED Last Myocardial Infarction Date:: 01/10/16 History of Any Multi-Drug Resistant Organisms: None Reported Past Surgical History: Adenoidectomy, Appendectomy, Orthopedic Surgery, Tonsillectomy Additional Past Surgical History / Comment(s): Hand surg; prostate surg Past Anesthesia/Blood Transfusion Reactions: No Reported Reaction Past Psychological History: No Psychological Hx Reported Smoking Status: Never smoker Past Alcohol Use History: Occasional Past Drug Use History: None Reported - Past Family History Father Family Medical History: Hypertension, Renal Disease Mother Family Medical History: Myocardial Infarction (MS) Sister(s) Family Medical History: Cancer General Exam Limitations: no limitations General appearance: alert, in no apparent distress, other (Well-developed, well- nourished male in no acute distress. Initial temperature 98.6, recheck 102.3, pulse 76, respirations 22, blood pressure 169/76, pulse ox 96% on room air.) Eye exam: Present: normal appearance. Absent: scleral icterus, conjunctival injection ENT exam: Present: normal exam, normal oropharynx Respiratory exam: Present: normal lung sounds bilaterally. Absent: respiratory distress, wheezes, rales, rhonchi, stridor, chest wall tenderness Cardiovascular Exam: Present: regular rate, normal rhythm, normal heart sounds. Absent: systolic murmur, diastolic murmur, rubs, gallop, clicks GI/Abdominal exam: Present: soft, tenderness (Minimal tenderness upon palpation in the suprapubic region), normal bowel sounds. Absent: distended, guarding, rebound, rigid Back exam: Absent: CVA tenderness (R), CVA tenderness (L) Neurological exam: Present: alert, oriented X3 Psychiatric exam: Present: flat affect Skin exam: Present: warm, dry, intact, normal color. Absent: rash Course Vital Signs 05/04/22 05/04/22 05/04/22 16:50 18:20 20:30 Temperature 98.6 F 99.2 F Pulse Rate 76 76 74 Respiratory 22 20 20 Rate Blood Pressure 169/76 158/77 165/80 O2 Sat by Pulse 96 97 97 Oximetry 05/04/22 23:14 Temperature 98.2 F Pulse Rate 74 Respiratory 16 Rate Blood Pressure 112/68 O2 Sat by Pulse 97 Oximetry - Reevaluation(s) Reevaluation #1: 05/04/22 21:12 Upon reassessment, patient reports feeling fine and expresses readiness for discharge; he is pain-free though does have an elevated temperature therefore will be given a dose of motrin and first dose of antibiotic. Discussed prostatitis as the likely culprit for UTI. Instructed to follow up with PCP for recheck on Saturday. Medical Decision Making - Medical Decision Making This is a pleasant 81-year-old male who presents to the emergency department for evaluation of lower abdominal/suprapubic pain. Upon exam, patient is well- appearing and in no acute distress. Reports minimal pain and declines anything to treat discomfort. Given that he has a low-grade temperature he was given Tylenol. Laboratory studies were obtained showing leukocytosis (WBC 19.6). His initial lactic was minimally elevated at 2.1 and was given a liter of IVF. Urinalysis shows trace protein, large leukocyte esterase, and [address] abdomen and pelvis shows no acute findings. Patient was given IV antibiotic and will be discharged home with Cipro for prostatitis. He is instructed to follow up with his PCP for a recheck on Saturday. Strict return parameters were discussed in detail. Patient and spouse verbalized understanding and agreed with this plan. Attending: Pedro Luis. - Lab Data Result diagrams: 05/04/22 18:08 05/04/22 18:08 Lab Results 05/04/22 05/04/22 05/04/22 Range/Units 18:08 18:08 18:08 WBC 19.6 H (3.8-10.6) k/uL RBC 4.87 (4.30-5.90) m/uL Hgb 14.8 (13.0-17.5) gm/dL Hct 46.7 (39.0-53.0) % MCV 96.0 (80.0-100.0) fL MCH 30.3 (25.0-35.0) pg MCHC 31.6 (31.0-37.0) g/dL RDW 12.5 (11.5-15.5) % Plt Count 181 (150-450) k/uL MPV 8.0 Neutrophils % 91 % Lymphocytes % 3 % Monocytes % 5 % Eosinophils % 0 % Basophils % 0 % Neutrophils # 17.8 H (1.3-7.7) k/uL Lymphocytes # 0.6 L (1.0-4.8) k/uL Monocytes # 1.0 (0-1.0) k/uL Eosinophils # 0.1 (0-0.7) k/uL Basophils # 0.1 (0-0.2) k/uL Sodium 139 (137-145) mmol/L Potassium 4.1 (3.5-5.1) mmol/L Chloride 102 (98-107) mmol/L Carbon Dioxide 24 (22-30) mmol/L Anion Gap 13 mmol/L BUN 23 H (9-20) mg/dL Creatinine 1.07 (0.66-1.25) mg/dL Est GFR (CKD-EPI)AfAm 74 (>60 ml/min/1.73 sqM) Est GFR (CKD-EPI)NonAf 64 (>60 ml/min/1.73 sqM) Glucose 101 H (74-99) mg/dL Lactic Ac Sepsis Rflx Plasma Lactic Acid Morris (0.7-2.0) mmol/L Calcium 9.4 (8.4-10.2) mg/dL Total Bilirubin 0.7 (0.2-1.3) mg/dL AST 29 (17-59) U/L ALT 24 (4-49) U/L Alkaline Phosphatase 94 (38-126) U/L Total Protein 7.2 (6.3-8.2) g/dL Albumin 4.3 (3.5-5.0) g/dL Urine Color Yellow Urine Appearance Clear (Clear) Urine pH 6.5 (5.0-8.0) Ur Specific Sycamore 1.015 (1.001-1.035) Urine Protein Trace H (Negative) Urine Glucose (UA) Negative (Negative) Urine Ketones Negative (Negative) Urine Blood Negative (Negative) Urine Nitrite Negative (Negative) Urine Bilirubin Negative (Negative) Urine Urobilinogen <2.0 (<2.0) mg/dL Ur Leukocyte Esterase Large H (Negative) Urine RBC 4 (0-5) /hpf Urine WBC 28 H (0-5) /hpf Ur Squamous Epith Cells 1 (0-4) /hpf Urine Bacteria Rare H (None) /hpf Urine Mucus Rare H (None) /hpf Coronavirus (PCR) (Not Detectd) 05/04/22 05/04/22 05/04/22 Range/Units 18:08 18:08 18:50 WBC (3.8-10.6) k/uL RBC (4.30-5.90) m/uL Hgb (13.0-17.5) gm/dL Hct (39.0-53.0) % MCV (80.0-100.0) fL MCH (25.0-35.0) pg MCHC (31.0-37.0) g/dL RDW (11.5-15.5) % Plt Count (150-450) k/uL MPV Neutrophils % % Lymphocytes % % Monocytes % % Eosinophils % % Basophils % % Neutrophils # (1.3-7.7) k/uL Lymphocytes # (1.0-4.8) k/uL Monocytes # (0-1.0) k/uL Eosinophils # (0-0.7) k/uL Basophils # (0-0.2) k/uL Sodium (137-145) mmol/L Potassium (3.5-5.1) mmol/L Chloride (98-107) mmol/L Carbon Dioxide (22-30) mmol/L Anion Gap mmol/L BUN (9-20) mg/dL Creatinine (0.66-1.25) mg/dL Est GFR (CKD-EPI)AfAm (>60 ml/min/1.73 sqM) Est GFR (CKD-EPI)NonAf (>60 ml/min/1.73 sqM) Glucose (74-99) mg/dL Lactic Ac Sepsis Rflx Y Plasma Lactic Acid Morris 2.1 H* (0.7-2.0) mmol/L Calcium (8.4-10.2) mg/dL Total Bilirubin (0.2-1.3) mg/dL AST (17-59) U/L ALT (4-49) U/L Alkaline Phosphatase (38-126) U/L Total Protein (6.3-8.2) g/dL Albumin (3.5-5.0) g/dL Urine Color Urine Appearance (Clear) Urine pH (5.0-8.0) Ur Specific Sycamore (1.001-1.035) Urine Protein (Negative) Urine Glucose (UA) (Negative) Urine Ketones (Negative) Urine Blood (Negative) Urine Nitrite (Negative) Urine Bilirubin (Negative) Urine Urobilinogen (<2.0) mg/dL Ur Leukocyte Esterase (Negative) Urine RBC (0-5) /hpf Urine WBC (0-5) /hpf Ur Squamous Epith Cells (0-4) /hpf Urine Bacteria (None) /hpf Urine Mucus (None) /hpf Coronavirus (PCR) Not Detected (Not Detectd) - EKG Data EKG shows normal: sinus rhythm Rate: normal EKG Comments: EKG obtained at 1736 shows sinus rhythm with incomplete right bundle-branch and inferior myocardial infarction which is probably old. Ventricular rate 79, VT interval 194, QRS duration 97, QT/QTC 352/386. Interpretation abnormal ECG. - Radiology Data Radiology results: report reviewed, image reviewed CT of the abdomen and pelvis with contrast was obtained. Report was reviewed in its entirety. Impression per Dr. Galloway is no acute intra-abdominal or intrapelvic process. Fat-containing inguinal hernias bilaterally. No evidence for acute complication within the hernia sacs. Partially visualized small right hydrocele. Colonic diverticulosis. Two-view chest x-ray was obtained. Report was reviewed in its entirety. Impression per Dr. Graf is no acute cardiopulmonary disease/process. Disposition Clinical Impression: Prostatitis, acute, UTI (urinary tract infection) Disposition: HOME SELF-CARE Condition: Stable Instructions (If sedation given, give patient instructions): Prostatitis (ED), Urinary Tract Infection in Men (ED) Additional Instructions: You are being prescribed an antibiotic for treatment of urinary tract infectio n/prostatitis. Take full course of antibiotic, even if you feel better. May take Tylenol or Motrin if needed for pain or fever. Please call your PCP to schedule a follow up appointment on Saturday. If you develop worsening pain, difficulty urinating, persistent fever, or any other concerning symptoms, return to the Emergency Department immediately. Prescriptions: Ciprofloxacin HCl [Cipro] 500 mg PO BID 14 Days #28 tab Is patient prescribed a controlled substance at d/c from ED?: No Referrals: Mc Mukherjee DO [Primary Care Provider] - 1-2 days Time of Disposition: 22:11
[2022-05-04 18:33] LABS: Basophils # (A) 0.1 k/uL (0-0.2); Basophils % (A) 0 %; Eosinophils # (A) 0.1 k/uL (0-0.7); Eosinophils % (A) 0 %; HCT 46.7 % (39.0-53.0); HGB 14.8 gm/dL (13.0-17.5); Lymphocytes # (A) 0.6 k/uL (1.0-4.8); Lymphocytes % (A) 3 %; MCH 30.3 pg (25.0-35.0); MCHC 31.6 g/dL (31.0-37.0); Monocytes % (A) 5 %; Neutrophils # (A) 17.8 k/uL (1.3-7.7); Neutrophils % (A) 91 %; Platelet Count 181 k/uL (150-450); RBC 4.87 m/uL (4.30-5.90); RDW 12.5 % (11.5-15.5); WBC 19.6 k/uL (3.8-10.6)
[2022-05-04 18:46] LABS: Albumin 4.3 g/dL (3.5-5.0); Calcium 9.4 mg/dL (8.4-10.2); Potassium 4.1 mmol/L (3.5-5.1); Total Bilirubin 0.7 mg/dL (0.2-1.3); Total Protein 7.2 g/dL (6.3-8.2)
--- NOTE | 2022-05-04 19:15 | XR ---
EXAMINATION TYPE: XR chest 2V DATE OF EXAM: 05/04/2022 6:29 PM COMPARISON: Chest radiographs from 09/02/2021 TECHNIQUE: XR chest 2V Frontal and lateral views of the chest. CLINICAL INDICATION:Male, 81 years old with history of shortness of breath; FINDINGS: Lungs/Pleura: There is no evidence of pleural effusion, focal consolidation, or pneumothorax. Pulmonary vascularity: Unremarkable. Heart/mediastinum: Cardiomediastinal silhouette is enlarged and stable. Musculoskeletal: No acute osseous pathology. IMPRESSION: No acute cardiopulmonary disease/process.
[2022-05-04 20:32] VITALS: PULSE 74
[2022-05-04 20:42] LABS: Appearance,Urine Clear (Clear); Bacteria,Urine Rare /hpf; Bilirubin,Urine Negative (Negative); Blood,Urine Negative (Negative); Color,Urine Yellow; Glucose,Urine (UA) Negative (Negative); Ketones,Urine Negative (Negative); Leukocyte Esterase,Urine Large (Negative); Mucus,Urine Rare /hpf; Nitrite,Urine Negative (Negative); PH, Urine 6.5 (5.0-8.0); Protein,Urine Trace (Negative); RBC,Urine 4 /hpf (0-5); Specific Gravity,Urine 1.015 (1.001-1.035); Squamous Epithelial Cell,Urine 1 /hpf (0-4); Urobilinogen,Urine <2.0 mg/dL (<2.0); WBC,Urine 28 /hpf (0-5)
--- NOTE | 2022-05-04 21:06 | CT ---
EXAMINATION TYPE: CT abdomen pelvis w con CT DLP: 1691.1 mGycm, Automated exposure control for dose reduction was used. DATE OF EXAM: 05/04/2022 8:07 PM COMPARISON: CT abdomen pelvis 11/08/2021, chest x-ray 05/04/2022 CLINICAL INDICATION:Male, 81 years old with history of lower abdominal pain; lower abd pain TECHNIQUE: Axial CT of the abdomen and pelvis. Sagittal and coronal reformats were created on a [employer] workstation. Contrast used:100 mL of Isovue 300 with IV Contrast, Oral contrast used: without Oral Contrast FINDINGS: LOWER CHEST: Posterior dependent subsegmental atelectasis is noted. ABDOMEN LIVER: Unremarkable GALLBLADDER AND BILE DUCTS: The gallbladder is surgically absent. PANCREAS: Unremarkable. SPLEEN: Unremarkable. ADRENAL GLANDS: Unremarkable. KIDNEYS AND URETERS: No evidence for hydronephrosis. Redemonstration of bilateral parapelvic cysts. E xophytic 1.6 cm right interpolar cyst with attenuation greater than that of simple fluid, likely repr esents a hyperdense renal cyst. Additional partially exophytic hyperdense 1 cm cyst in the posterior left kidney (series 201, image 47). Written cyst are stable from prior. Bilateral simple renal cysts are also noted. Nonobstructing bilateral renal calculi. PELVIS BLADDER: Unremarkable REPRODUCTIVE: Prostate is enlarged in size measuring 5.4 cm in transverse dimension. Small right hydr ocele. ABDOMEN & PELVIS STOMACH AND BOWEL: Stomach and duodenum are unremarkable. Scattered diverticula are noted throughout the colon. No evidence of bowel obstruction. PERITONEUM: No evidence of pneumoperitoneum or free fluid. VASCULATURE: Similar aneurysmal dilatation of the infrarenal abdominal aorta (series 202, image 67) m easuring up to 3.2 cm in greatest width. There is ectasia of the bilateral common iliac arteries. Mod erate atherosclerotic calcification of the abdominal aorta and distal branches. MUSCULOSKELETAL: No acute osseous abnormalities. Moderate disc degeneration changes are present throu ghout the thoracolumbar spine. Degenerative changes of the hip joints bilaterally. Is sclerotic densi ties throughout the iliacs bilaterally, suspected to represent small bone islands. Similar to prior e xam. LYMPH NODES: No gross evidence for lymphadenopathy. SOFT TISSUE/ABDOMINAL WALL: Fat-containing umbilical hernias bilaterally. Herniation of fat along the spermatic cords into the scrotum. IMPRESSION: 1. No acute intra-abdominal or intrapelvic process. 2. Fat-containing inguinal hernias bilaterally. No evidence for acute convocation within the hernia s acs. 3. Partially visualized small right hydrocele. 4. Colonic diverticulosis.
[2022-05-04] MEDS ORDERED: cefTRIAXone IN SWFI 1,000 MG/10 ML SYRINGE IVP STA (21:14)
[2022-05-04] MEDS: IBUPROFEN 600 MG TAB PO STA ×2 (22:10→22:11)
[2022-05-04] MEDS ORDERED: IBUPROFEN 600 MG TAB PO STA (22:12)
[2022-05-04 23:16] VITALS: BP 112/68; RESP 16; TEMP 98.2
== END 2022-05-04 23:13 | disposition home or self-care (01) ==
LOC: EC 16:27
DX: N39.0 Urinary tract infection, site not specified (principal); N41.0 Acute prostatitis; E78.5 Hyperlipidemia, unspecified; I10 Essential (primary) hypertension; I25.2 Old myocardial infarction; Z79.899 Other long term (current) drug therapy; Z79.82 Long term (current) use of aspirin
CPT/HCPCS: 36415; 80053; 83605; 85025; 81001; 87040; 87086; 87635; 71046; 74177; 99284; 96374; 96361; J0696; Q9967

== ENCOUNTER → 2022-05-18 | Outpatient (CLI) | payer MEDICARE ==
--- NOTE | 2022-05-30 11:31 | EM ---
EVENT MONITOR The patient was monitored between and April. The rhythm strip revealed a sinus mechanism with normal conduction. No symptoms were reported. No atrial fibrillation was noted. No pauses were noted. TANA / LUIS FELIPEN: [id number] /
== END | disposition home or self-care (01) ==
LOC: RADECHMAIN 07:26
PROVIDERS: ATTEND Family Medicine
DX: R55 Syncope and collapse (principal)
CPT/HCPCS: 93270

== ENCOUNTER → 2022-05-24 | Outpatient (CLI) | payer MEDICARE ==
--- NOTE | 2022-05-24 16:53 | US ---
EXAMINATION TYPE: US carotid duplex BILAT DATE OF EXAM: 05/24/2022 COMPARISON: NONE CLINICAL HISTORY: R55 syncope. TECHNIQUE: Carotid duplex ultrasound examination. Indirect Doppler criteria was utilized. FINDINGS: EXAM MEASUREMENTS: RIGHT: Peak Systolic Velocity (PSV) cm/sec ----- Right CCA: 72.7 ----- Right ICA: 61.5 ----- Right ECA: 76.9 ICA/CCA ratio: 0.9 RIGHT: End Diastole cm/sec ----- Right CCA: 9.4 ----- Right ICA: 11.8 ----- Right ECA: 8.3 LEFT: Peak Systolic Velocity (PSV) cm/sec ----- Left CCA: 64.1 ----- Left ICA: 65.0 ----- Left ECA: 62.7 ICA/CCA ratio: 1.0 LEFT: End Diastole cm/sec ----- Left CCA: 12.0 ----- Left ICA: 17.3 ----- Left ECA: 4.9 VERTEBRALS (direction of flow): Right Vertebral: Antegrade Left Vertebral: Antegrade Rhythm: Normal GAS BLENDER NOTES: Small amount of calcification seen in the left carotid bulb. No significant stenos is visualized. IMPRESSION: Mild left side atheromatous plaquing without significant flow-limiting stenosis bilateral carotid bif urcations.. Criteria for Assigning % of Stenosis / Diameter reduction (Estimation based on the indirect measurements of the internal carotid artery velocities (ICA PSV). 1. Normal (no stenosis)=ICA PSV < 125 cm/s: ratio < 2.0: ICA EDV<40 cm/s. 2. Less than 50% stenosis=ICA PSV < 125 cm/s: ratio < 2.0: ICA EDV<40 cm/s. 3. 50 to 69% stenosis=ICA PSV of 125 to 230 cm/s: ration 2.0 ? 4.0: ICA EDV 40-100 cm/s. 4. Greater than 70% stenosis to near occlusion= ICA PSV > 230 cm/s: ratio > 4.0: ICA EDV > 100 cm/s. 5. Near occlusion= ICA PSV velocities may be low or undetectable: variable ratio and ICA EDV. 6. Total occlusion=unable to detect flow.
== END | disposition home or self-care (01) ==
LOC: RADUSWWP 12:17
PROVIDERS: ATTEND Family Medicine
DX: R55 Syncope and collapse (principal)
CPT/HCPCS: 93880

== ENCOUNTER 2022-05-29 09:38 | Day surgery (SDC) | payer MEDICARE ==
[~2022-05-29 09:38] MED LIST changes: -ACETAMINOPHEN TAB 500 MG TAB PO PRN; -DEXAMETHASONE SOD PHOSPHATE 4 MG/ML 1 ML VIAL IV ONE; -HEPARIN SODIUM,PORCINE/PF 5,000 UNIT/0.5 ML SYRINGE SQ PRN; +LACTATED RINGERS 1,000 ML IV SCH; +LIDOCAINE 1% (10MG/ML) FOR IV START INTRADERMA PRN; -MIDAZOLAM 2 MG/2 ML VIAL IV PRN; -ONDANSETRON 4 MG/2 ML VIAL IVP ONE
[2022-05-29 10:04] VITALS: RESP 16; TEMP 96.8
--- NOTE | 2022-05-29 10:39 | P.PCN ---
Date of Procedure: 05/29/22 Procedure(s) Performed: Preoperative diagnosis: Hydrocephalus Post operative diagnoses: Hydrocephalus Procedure= lumbar puncture Anesthesia= moderate sedation with Versed 1 mg , and fentanyl 50 g, local infiltration with lidocaine 1% 3 mL. Sedation start time : 1028 Sedation end time : 1034 Condition: stable Complication: none. Description of the procedure procedure risk and benefits discussed with the patient and family, consent signed. Patient and the procedure area placed in sitting position, back prepped with chlorhexidine 3 times been local infiltration of the skin and subcutaneous tissue with lidocaine 1% 3 mL for skin and subcu interstitial frustrations at L4 5 levels then 20-gauge Quincke-type needle advanced slowly at L4- 5 interlaminar space there was positive cerebrospinal fluid which was clear, no heme, no paresthesia ,total of 25 ML of clear cerebrospinal fluid removed, then the needle removed and a Band-Aid applied and patient tolerated the procedure well without any complications. note= patient had symptoms of hydrocephalus, he was referred to the pain clinic by Dr. Witt(neurosurgery ) for therapeutic lumbar puncture to remove 20-30 ML of cerebrospinal fluid.
[2022-05-29] MEDS ORDERED: IV FLUID CONTINUATION 1,000 ML IV ONE (10:40)
[2022-05-29 11:01] VITALS: BP 146/83; PULSE 63
== END 2022-05-29 11:41 | disposition home or self-care (01) ==
LOC: ORPAIN 09:38
PROVIDERS: ATTEND Specialist
DX: G91.9 Hydrocephalus, unspecified (principal)
CPT/HCPCS: 62329; 99152

== ENCOUNTER 2022-06-01 17:35 | Emergency (ER) | payer MEDICARE ==
[2022-06-01 17:59] VITALS: TEMP 97.8
--- NOTE | 2022-06-01 18:45 | ED ---
General Adult HPI - General Chief complaint: Headache Stated complaint: Headache,sent by neurologist Time Seen by Provider: 06/01/22 18:11 Source: patient, RN notes reviewed Mode of arrival: ambulatory Limitations: no limitations - History of Present Illness Initial comments: Patient is a pleasant 82-year-old male presenting to the emergency Department with headache. Patient did have diagnostic lumbar puncture done Saturday and has been having headaches since that time. Headache is significantly increased with upright position and is very mild with rest and lying down. Patient was having problems with coordination and walking and computed tomography scan showed increase fluid. They did follow-up with neurosurgery who does plan on doing shunt. - Related Data Home Medications Medication Instructions Recorded Confirmed Oxybutynin Chloride [Ditropan] 5 mg PO BID 01/11/16 05/25/22 Aspirin EC [Ecotrin Low Dose] 81 mg PO HS 03/25/18 05/25/22 Cholecalciferol [Vitamin D3 (25 100 mcg PO DAILY 03/25/18 05/25/22 Mcg = 1000 Iu)] Fish Oil/Dha/Epa [Fish Oil 1,200 1 cap PO DAILY 03/25/18 05/25/22 mg Fish Oil] Multivit-Min/FA/Lycopen/Lutein 1 tab PO DAILY 03/25/18 05/25/22 [Centrum Silver Tablet] Tamsulosin [Flomax] 0.4 mg PO BID 03/25/18 05/25/22 Irbesartan [Avapro] 150 mg PO DAILY 02/21/21 05/25/22 Melatonin [Melatonin ER] 10 mg PO HS PRN 02/21/21 05/25/22 Vit C/E/Zn/Coppr/Lutein/Zeaxan 1 cap PO BID 02/21/21 05/25/22 [Preservision Areds 2 Softgel] Nitroglycerin Sl Tabs [Nitrostat] 0.4 mg SL Q5M PRN 08/20/21 05/25/22 amLODIPine BESYLATE [Norvasc] 2.5 mg PO DAILY 09/02/21 05/25/22 amLODIPine BESYLATE [Norvasc] 5 mg PO HS 09/02/21 05/25/22 Previous Rx's Medication Instructions Recorded Atorvastatin [Lipitor] 80 mg PO HS #30 tab 01/13/16 Metoprolol Tartrate [Lopressor] 25 mg PO BID #60 tab 01/13/16 Allergies Allergy/AdvReac Type Severity Reaction Status Date / Time No Known Allergies Allergy Verified 06/01/22 17:59 Review of Systems ROS Statement: Those systems with pertinent positive or pertinent negative responses have been documented in the HPI. ROS Other: All systems not noted in ROS Statement are negative. Constitutional: Denies: fever Eyes: Denies: eye pain ENT: Denies: ear pain Respiratory: Denies: cough Cardiovascular: Denies: chest pain Endocrine: Denies: fatigue Gastrointestinal: Denies: abdominal pain Genitourinary: Denies: dysuria Musculoskeletal: Denies: back pain Skin: Denies: rash Neurological: Reports: as per HPI, headache Past Medical History Past Medical History: Cancer, Hyperlipidemia, Hypertension, Myocardial Infarction ([place]), Prostate Disorder, Sleep Apnea/CPAP/BIPAP Additional Past Medical History / Comment(s): hx kidney stones,LEFT REAR SHOULDER MELANOMA REMOVED. wears cpap. recent hx of PAYNE and stumbling gait, seen by Dr Witt. CT done Last Myocardial Infarction Date:: 01/10/16 History of Any Multi-Drug Resistant Organisms: None Reported Past Surgical History: Adenoidectomy, Appendectomy, Cholecystectomy, Orthopedic Surgery, Prostate Surgery, Tonsillectomy Additional Past Surgical History / Comment(s): left Hand surg ganglion cyst ; p rostate surg; spinal tap Past Anesthesia/Blood Transfusion Reactions: No Reported Reaction Past Psychological History: No Psychological Hx Reported Smoking Status: Never smoker - Past Family History Father Family Medical History: Hypertension, Renal Disease Mother Family Medical History: Myocardial Infarction ([place]) Sister(s) Family Medical History: Cancer General Exam Limitations: no limitations General appearance: alert, in no apparent distress Head exam: Present: atraumatic, normocephalic Eye exam: Present: normal appearance, PERRL, EOMI ENT exam: Present: normal oropharynx Neck exam: Present: normal inspection Respiratory exam: Present: normal lung sounds bilaterally Cardiovascular Exam: Present: regular rate, normal rhythm GI/Abdominal exam: Present: soft. Absent: tenderness Extremities exam: Present: normal inspection Neurological exam: Present: alert, oriented X3, CN II-XII intact. Absent: motor sensory deficit Expanded Neurological exam: Present: protecting the airway Patient oriented to: Present: person, place, time Speech: Present: fluid speech Cranial nerves: EOM's Intact: Normal, Facial Sensation: Normal Sensory exam: Upper Extremity Light Touch: Normal, Lower Extremity Light Touch: Normal Motor strength exam: RUE: 5, LUE: 5, RLE: 5, LLE: 5 Eye Response: (4) open spontaneously Motor Response: (6) obeys commands Verbal Response: (5) oriented Psychiatric exam: Present: normal affect, normal mood Skin exam: Present: normal color Course Vital Signs 06/01/22 17:56 Temperature 97.8 F Pulse Rate 66 Respiratory 18 Rate Blood Pressure 162/96 O2 Sat by Pulse 97 Oximetry - Reevaluation(s) Reevaluation #1: 06/01/22 18:44 Case was discussed with anesthesia who will come evaluate Medical Decision Making - Medical Decision Making Blood patch performed by anesthesia. Patient reevaluated and states procedure went well and has no other concerns. Patient and family updated on plan. Disposition Clinical Impression: Spinal headache Disposition: HOME SELF-CARE Condition: Stable Instructions (If sedation given, give patient instructions): Acute Headache (ED) Additional Instructions: Please do follow-up with primary care physician in the next couple days for recheck. Please also do follow-up with your neuro surgeon as planned. Return for fever, increased headache, weakness, worsening symptoms or any other concerns. Is patient prescribed a controlled substance at d/c from ED?: No Referrals: Mc Mukherjee DO [Primary Care Provider] - 1-2 days Time of Disposition: 19:30
--- NOTE | 2022-06-01 19:49 | P.PN ---
Progress Note - Text Progress Note Date: 06/01/22 Consulted by ED due to patient having spinal headache. The patient had a diagnostic lumbar puncture Wednesday 05/30. The next morning, the patient developed a postural headache that was only relieved in supine position. Hydration and caffeine did not improve the headache. Denies weakness or blurry vision. The headache is worse today, so pt came to ED. The patient is awake and alert. Appears comfortable when supine. Denies any blood thinners or hemophilia. The patient has a puncture site from the LP at L5-S1 that appears clean w/o erythema. Discussed options with pt including waiting several days, but possibly longer for resolution of the headache with hydration and caffeine throughout. The other option presented was a blood patch with 85% effectiveness and risks including infection and possible paralysis. Pt is scheduled for a PRESENTATION SPECIALIST shunt due to hydrocephalus, so the increased ICP likely contributing to development of spinal headache. The patient requested blood patch. After informed consent, the patient's back was prepped and draped. 1% lidocaine 3 ml infiltrated in L4-L5 IS. 18 G [place] was advanced until KOLBY to saline. At this time, the ER nurse placed a fresh 18g IV in the right AC and withdrew 20 ml of blood. The blood was transferred to a sterile syringe on the field and slowly injected via the epidural needle. The patient never developed a feeling of back fullness or pain, so all 20 ml were injected. The patient tolerated the procedure well.
[2022-06-01 20:07] VITALS: BP 150/85; PULSE 56; RESP 16
== END 2022-06-01 20:22 | disposition home or self-care (01) ==
LOC: EC 17:35
DX: G97.1 Other reaction to spinal and lumbar puncture (principal); E78.5 Hyperlipidemia, unspecified; I10 Essential (primary) hypertension; Z86.79 Personal history of other diseases of the circulatory system; Z85.828 Personal history of other malignant neoplasm of skin; Z79.82 Long term (current) use of aspirin
CPT/HCPCS: 99283

== ENCOUNTER 2022-06-10 17:15 | Emergency (ER) | payer MEDICARE ==
[2022-06-10 17:25] VITALS: PULSE 57; RESP 18; TEMP 97.7
--- NOTE | 2022-06-10 17:57 | CT ---
EXAMINATION TYPE: CT brain cspine wo con CT DLP: 1579.9 mGycm, Automated exposure control for dose reduction was used. DATE OF EXAM: 06/10/2022 5:46 PM COMPARISON: None. CLINICAL INDICATION:Male, 82 years old with history of fall down stairs; fall TECHNIQUE: Brain: Multiple axial CT images of the brain were obtained without IV contrast. Cspine: Axial CT images from the skull base to the inferior aspect of T2 we obtained without intraven ous contrast. Coronal and sagittal reformatted images were also reviewed. FINDINGS: Brain: Extra-axial spaces: No abnormal extra-axial fluid collections. Ventricular system: Dilatation in proportion to cerebral atrophy. Cerebral parenchyma: Cerebral atrophy. No acute intraparenchymal hemorrhage or mass effect. The samano -white junction is well differentiated. Scattered hypoattenuating areas are seen within the white mat ter. Cerebellum: Unremarkable. Mass effect: No evidence of midline shift. Intracranial vasculature: Atherosclerotic calcifications of the intracranial vessels. Soft tissues: Normal. Calvarium/osseous structures: No depressed skull fracture. Paranasal sinuses and mastoid air cells: Mild scattered mucosal thickening and or secretions. Visualized orbits: Orbital contents are intact. Cervical spine: Fracture: None. Osseous structures: Multilevel degenerative disc disease changes with endplate spurring and disc oste ophyte complex's. Vertebral alignment: Within normal limits. Spinal canal/Neural Foramina: Disc osteophyte complexes at C4-C7 with at least mild spinal canal sten osis. Facet joint uncovertebral joint arthropathy scattered throughout the cervical spine with varyin g degrees of neural foraminal stenosis. Neck soft tissues: Prevertebral soft tissues are within normal limits. Other: The airway is patent. The lung apices are clear. IMPRESSION: 1. No acute intracranial process. 2. Nonspecific white matter changes, likely secondary to chronic small vessel ischemic disease. 3. No evidence of cervical spine fracture. 4. Mild multilevel degenerative disc disease.
--- NOTE | 2022-06-10 18:52 | XR ---
EXAMINATION TYPE: XR pelvis AP view DATE OF EXAM: 06/10/2022 6:29 PM INDICATION: Patient age:Male; 82 years old; Reason for study: fall down stairs; PHH. COMPARISON: CT abdomen pelvis 05/04/2022 TECHNIQUE: The pelvis was examined in AP projection. FINDINGS: No evidence for fracture or dislocation. Degenerative changes of the hip joints bilaterally . Phleboliths are noted within the pelvis. Osteoarthritis of the lumbar spine. No acute soft tissue a bnormalities as visualized. IMPRESSION: 1. No acute osseous pathology. 2. Bilateral hip osteoarthritis.
--- NOTE | 2022-06-10 18:58 | XR ---
EXAMINATION TYPE: XR shoulder complete RT DATE OF EXAM: 06/10/2022 6:29 PM INDICATION: Patient age:Male; 82 years old; Reason for study: fall down stairs; COMPARISON: Chest x-ray 06/10/2022 TECHNIQUE: The right shoulder was examined in AP, internally rotated and scapular Y projections. . FINDINGS: No evidence of fracture or dislocation. Moderate osteoarthritic changes of the acromioclavicular join t. Large geode noted within the humeral head. Moderate joint space narrowing of the humeral head with the glenoid as well as a high riding position of the humeral head indicating chronic rotator cuff pa thology. No significant soft tissue abnormalities. IMPRESSION: 1. No fracture or dislocation. 2. Moderate arthropathy of the right acromioclavicular and shoulder joints.
--- NOTE | 2022-06-10 18:59 | XR ---
EXAMINATION TYPE: XR chest 1V DATE OF EXAM: 06/10/2022 6:29 PM COMPARISON: Right shoulder radiographs 06/10/2022 chest x-ray 05/04/2022 TECHNIQUE: XR chest 1V . CLINICAL INDICATION:Male, 82 years old with history of fall down stairs; FINDINGS: Lungs/Pleura: There is no evidence of pleural effusion, focal consolidation, or pneumothorax. Pulmonary vascularity: Unremarkable. Heart/mediastinum: Cardiomediastinal silhouette is enlarged and stable. Musculoskeletal: Degenerative changes of the right shoulder joint and bilateral acromioclavicular george nts. IMPRESSION: No acute cardiopulmonary disease/process.
[2022-06-10] MEDS ORDERED: KETOROLAC 15 MG/ML 1 ML VIAL IVP STA (20:00)
--- NOTE | 2022-06-10 20:24 | CT ---
EXAMINATION TYPE: CT shoulder RT wo con CT DLP: 689.7 mGycm, Automated exposure control for dose reduction was used. DATE OF EXAM: 06/10/2022 7:51 PM COMPARISON: Right shoulder radiograph 06/10/2022, chest x-ray 06/10/2022 CLINICAL INDICATION:Male, 82 years old with history of fall down stairs, pain; PHH, right shoulder pa in TECHNIQUE: Axial images were obtained of the right shoulder without the use of IV contrast. Addition al coronal and sagittal reformatted images and soft tissue and bone window were obtained for review. 3-D reconstruction was created on a separate workstation. FINDINGS: There is no evidence of fracture, subluxation, or dislocation. No significant soft tissue swelling or joint effusion is identified. No evidence for acute soft tissue abnormality. Moderate art hropathy of the right acromioclavicular joint. Mild arthritic changes of the right shoulder joint. No radiopaque foreign body identified. IMPRESSION: 1. No evidence for fracture or dislocation. 2. Moderate acromioclavicular and right shoulder osteoarthritis.
[2022-06-10] MEDS ORDERED: HYDROcodone/APAP 5-325MG 1 EACH TAB PO STA (20:56)
--- NOTE | 2022-06-10 20:58 | ED ---
Fall HPI - General Chief Complaint: Fall Stated Complaint: fall Time Seen by Provider: 06/10/22 17:30 Source: EMS Mode of arrival: EMS - History of Present Illness Initial Comments: 82-year-old male presents to the emergency room and after he sustained a fall. Patient's fell down a whole flight of carpeted stairs into the basement while he was carrying a step stool. Patient did hit the right side of his head. Denies losing consciousness. He does not take any blood thinners. Denies any neck or back pain. Does report to right shoulder pain. This is his dominant arm. He also sustained an abrasion to his right anterior luo however has no pain and continues to have full normal range of motion. He denies chest pain or shortness of breath. No abdominal pain. No numbness or tingling in his extremities. He refused pain medications upon transfer into the hospital. Denies headache or visual changes. He does arrive in a c-collar. No other alleviating, precipitating or modifying factors - Related Data Home Medications Medication Instructions Recorded Confirmed Oxybutynin Chloride [Ditropan] 5 mg PO BID 01/11/16 05/25/22 Aspirin EC [Ecotrin Low Dose] 81 mg PO HS 03/25/18 05/25/22 Cholecalciferol [Vitamin D3 (25 100 mcg PO DAILY 03/25/18 05/25/22 Mcg = 1000 Iu)] Fish Oil/Dha/Epa [Fish Oil 1,200 1 cap PO DAILY 03/25/18 05/25/22 mg Fish Oil] Multivit-Min/FA/Lycopen/Lutein 1 tab PO DAILY 03/25/18 05/25/22 [Centrum Silver Tablet] Tamsulosin [Flomax] 0.4 mg PO BID 03/25/18 05/25/22 Irbesartan [Avapro] 150 mg PO DAILY 02/21/21 05/25/22 Melatonin [Melatonin ER] 10 mg PO HS PRN 02/21/21 05/25/22 Vit C/E/Zn/Coppr/Lutein/Zeaxan 1 cap PO BID 02/21/21 05/25/22 [Preservision Areds 2 Softgel] Nitroglycerin Sl Tabs [Nitrostat] 0.4 mg SL Q5M PRN 08/20/21 05/25/22 amLODIPine BESYLATE [Norvasc] 2.5 mg PO DAILY 09/02/21 05/25/22 amLODIPine BESYLATE [Norvasc] 5 mg PO HS 09/02/21 05/25/22 Previous Rx's Medication Instructions Recorded Atorvastatin [Lipitor] 80 mg PO HS #30 tab 01/13/16 Metoprolol Tartrate [Lopressor] 25 mg PO BID #60 tab 01/13/16 HYDROcodone/APAP 5-325MG [[place] 1 tab PO Q4HR PRN 3 Days #18 tab 06/10/22 5-325] Allergies Allergy/AdvReac Type Severity Reaction Status Date / Time No Known Allergies Allergy Verified 06/10/22 17:25 Review of Systems ROS Statement: Those systems with pertinent positive or pertinent negative responses have been documented in the HPI. ROS Other: All systems not noted in ROS Statement are negative. Past Medical History Past Medical History: Cancer, Hyperlipidemia, Hypertension, Myocardial Infarction ([place]), Prostate Disorder, Sleep Apnea/CPAP/BIPAP Additional Past Medical History / Comment(s): hx kidney stones,LEFT REAR SHOUL ROCK MELANOMA REMOVED. wears cpap. recent hx of PAYNE and stumbling gait, seen by Dr Witt. CT done Last Myocardial Infarction Date:: 01/10/16 History of Any Multi-Drug Resistant Organisms: None Reported Past Surgical History: Adenoidectomy, Appendectomy, Cholecystectomy, Orthopedic Surgery, Prostate Surgery, Tonsillectomy Additional Past Surgical History / Comment(s): left Hand surg ganglion cyst ; prostate surg; spinal tap Past Anesthesia/Blood Transfusion Reactions: No Reported Reaction Past Psychological History: No Psychological Hx Reported Smoking Status: Never smoker Past Alcohol Use History: Occasional Past Drug Use History: None Reported - Past Family History Father Family Medical History: Hypertension, Renal Disease Mother Family Medical History: Myocardial Infarction ([place]) Sister(s) Family Medical History: Cancer General Exam Limitations: no limitations General appearance: alert, in no apparent distress Head exam: Present: normocephalic, other (Mild abrasion right forehead) Eye exam: Present: normal appearance, PERRL, EOMI. Absent: scleral icterus, conjunctival injection, periorbital swelling ENT exam: Present: normal exam, mucous membranes moist Neck exam: Present: normal inspection. Absent: tenderness, meningismus, lymphadenopathy Respiratory exam: Present: normal lung sounds bilaterally. Absent: respiratory distress, wheezes, rales, rhonchi, stridor Cardiovascular Exam: Present: regular rate, normal rhythm, normal heart sounds. Absent: systolic murmur, diastolic murmur, rubs, gallop, clicks GI/Abdominal exam: Present: soft, normal bowel sounds. Absent: distended, tenderness, guarding, rebound, rigid Extremities exam: Present: tenderness (To palpation of the superior right shoulder into the right shoulder joint. Decreased range of motion at this j oint. No tenderness to the elbow or wrist. 2+ radial and ulnar pulses. No gross deformity), normal capillary refill. Absent: pedal edema, joint swelling, calf tenderness Back exam: Present: normal inspection Neurological exam: Present: alert, oriented X3, CN II-XII intact Psychiatric exam: Present: normal affect, normal mood Skin exam: Present: warm, dry, intact, normal color. Absent: rash Course Vital Signs 06/10/22 17:19 Temperature 97.7 F Pulse Rate 57 L Respiratory 18 Rate O2 Sat by Pulse 99 Oximetry Medical Decision Making - Medical Decision Making Upon arrival patient is placed into room 5. A thorough history and physical exam was performed. The patient does go for CT of his head and cervical spine. No acute intracranial process or cervical fractures. C-collar is removed. Patient does go for chest x-ray, pelvis x-ray and an x-ray of his right shoulder. Imaging was reviewed and demonstrates no acute process. There is concern for possible rotator cuff injury of the right shoulder. His splint is removed and patient continuously evaluated. Does have pain out of proportion for physical exam and therefore CTs performed to identify any scapular injury. CT is read as negative by the radiologist. He was given a dose of Toradol. Patient is able to get up and a bili without difficulty. He is placed in a sling and does have comfort. Patient is stable for discharge home at this time. Is to wear the sling for comfort. Needs to follow-up with orthopedics for further evaluation to include possible MRI of the shoulder due to concern for rotator cuff injury. Should he have any new or worsening symptoms he needs to return to the emergency room. Patient discharged home with a prescription for [place] and informed that it does come with a fall risk. Patient understood, was agreeable and discharged home in stable condition - Lab Data Lab Results 06/10/22 Range/Units 18:17 Coronavirus (PCR) Not Detected (Not Detectd) Disposition Clinical Impression: Fall, Right shoulder pain Disposition: HOME SELF-CARE Condition: Stable Instructions (If sedation given, give patient instructions): Shoulder Pain (ED) Additional Instructions: Please wear the sling for comfort. Take the [place] for pain control. You may substitute for Tylenol the pain is not that severe. Call and make an appointment with orthopedic doctor as you may need an MRI. Return for any new or worsening symptoms Prescriptions: HYDROcodone/APAP 5-325MG [[place] 5-325] 1 tab PO Q4HR PRN 3 Days #18 tab PRN Reason: Pain Is patient prescribed a controlled substance at d/c from ED?: Yes When asked, does pt state using other controlled substances?: No If prescribed controlled substance>3 days was MAPS reviewed?: Prescribed <3 Days Referrals: Mc Mukherjee DO [Primary Care Provider] - 1-2 days Jose Aguilar MD [STAFF PHYSICIAN] - 1-2 days Tenzin Torres MD [STAFF PHYSICIAN] - 1-2 days Time of Disposition: 20:58
== END 2022-06-10 21:24 | disposition home or self-care (01) ==
LOC: EC 17:15
DX: M25.511 Pain in right shoulder (principal); E78.5 Hyperlipidemia, unspecified; I25.2 Old myocardial infarction; I10 Essential (primary) hypertension; W19.XXXA Unspecified fall, initial encounter
CPT/HCPCS: 87635; 72170; 73030; 71045; 72125; 70450; 73200; 99284; 96374; J1885

== ENCOUNTER → 2023-05-31 | Outpatient (CLI) | payer MEDICARE ==
--- NOTE | 2023-05-31 10:59 | XR ---
EXAMINATION TYPE: XR KUB DATE OF EXAM: 05/31/2023 Comparison: 05/27/2023 Clinical History: 83-year-old male N20.1 CALCULUS OF URETER Findings: Right-sided [employer] shunt catheter. Cholecystectomy clips right upper quadrant. Right-sided pelvic phlebol iths. Nonobstructive bowel gas pattern. Mild scattered stool. Scattered air throughout the colon exte nding distally to the rectum. Bowel content largely obscures the renal shadows. There may be some sub tle underlying left-sided renal calculi measuring up to 3 mm. Impression: Bowel content largely obscures the renal shadows. There may be subtle underlying left-sided renal devin culi measuring up to 3 mm. Right-sided [employer] shunt catheter. Right-sided pelvic phlebolith.
== END | disposition home or self-care (01) ==
LOC: RADXRMAIN 09:17
PROVIDERS: ATTEND Urology
DX: N20.1 Calculus of ureter (principal); I87.8 Other specified disorders of veins; Z98.2 Presence of cerebrospinal fluid drainage device
CPT/HCPCS: 74018

== ENCOUNTER 2023-11-06 16:17 | Emergency (ER) | payer MEDICARE ==
--- NOTE | 2023-11-06 16:31 | ED ---
Fall HPI - General Source: patient Mode of arrival: EMS <Libertad Scales - Last Filed: 11/06/23 17:06> <Shane Nino - Last Filed: 11/06/23 20:42> - General Chief Complaint: Fall Stated Complaint: Fall Time Seen by Provider: 11/06/23 16:30 - History of Present Illness Initial Comments: Patient is an 83-year-old male presented to ER via EMS with chief complaint of a fall. Patient states he was messing around in his [place] enjoying the nice weather when he believes he slipped. Patient admits to loss of consciousness but denies blood thinner use. He denies any chest pain, shortness of breath, dizziness, lightheadedness prior to event. Patient reports he has a mild headache but denies any other pain. Tetanus status unknown. Patient has no other complaints at this time. (Libertad Scales) - Related Data Home Medications Medication Instructions Recorded Confirmed oxyBUTYnin chloride [Ditropan] 5 mg PO BID 01/11/16 05/25/22 Aspirin EC [Ecotrin Low Dose] 81 mg PO HS 03/25/18 05/25/22 Cholecalciferol [Vitamin D3 (25 100 mcg PO DAILY 03/25/18 05/25/22 Mcg = 1000 Iu)] Fish Oil/Dha/Epa [Fish Oil 1,200 1 cap PO DAILY 03/25/18 05/25/22 mg Fish Oil] Multivit-Min/FA/Lycopen/Lutein 1 tab PO DAILY 03/25/18 05/25/22 [Centrum Silver Tablet] Tamsulosin [Flomax] 0.4 mg PO BID 03/25/18 05/25/22 Irbesartan [Avapro] 150 mg PO DAILY 02/21/21 05/25/22 Melatonin [Melatonin ER] 10 mg PO HS PRN 02/21/21 05/25/22 Vit C/E/Zn/Coppr/Lutein/Zeaxan 1 cap PO BID 02/21/21 05/25/22 [Preservision Areds 2 Softgel] Nitroglycerin Sl Tabs [Nitrostat] 0.4 mg SL Q5M PRN 08/20/21 05/25/22 amLODIPine BESYLATE [Norvasc] 2.5 mg PO DAILY 09/02/21 05/25/22 amLODIPine BESYLATE [Norvasc] 5 mg PO HS 09/02/21 05/25/22 Previous Rx's Medication Instructions Recorded Atorvastatin [Lipitor] 80 mg PO HS #30 tab 01/13/16 Metoprolol Tartrate [Lopressor] 25 mg PO BID #60 tab 01/13/16 HYDROcodone/APAP 5-325MG [[place] 1 tab PO Q4HR PRN 3 Days #18 tab 06/10/22 5-325] HYDROcodone/APAP 7.5-325MG [[place] 1 tab PO Q6HR PRN 3 Days #12 tab 05/25/23 7.5-325] Ondansetron Odt [Zofran Odt] 4 mg PO Q8HR PRN #10 tab 05/25/23 Allergies Allergy/AdvReac Type Severity Reaction Status Date / Time No Known Allergies Allergy Verified 11/06/23 16:23 Review of Systems ROS Other: All systems not noted in ROS Statement are negative. <Libertad Scales - Last Filed: 11/06/23 17:06> ROS Other: All systems not noted in ROS Statement are negative. <Shane Nino - Last Filed: 11/06/23 20:42> ROS Statement: Those systems with pertinent positive or pertinent negative responses have been documented in the HPI. Past Medical History Past Medical History: Cancer, Hyperlipidemia, Hypertension, Myocardial Infarction ([place]), Prostate Disorder, Sleep Apnea/CPAP/BIPAP Additional Past Medical History / Comment(s): hx kidney stones,LEFT REAR SHOULDER MELANOMA REMOVED. wears cpap. recent hx of PAYNE and stumbling gait, seen by Dr Witt. CT done Last Myocardial Infarction Date:: 01/10/16 History of Any Multi-Drug Resistant Organisms: None Reported Past Surgical History: Adenoidectomy, Appendectomy, Cholecystectomy, Orthopedic Surgery, Prostate Surgery, Tonsillectomy Additional Past Surgical History / Comment(s): left Hand surg ganglion cyst ; prostate surg; spinal tap Past Anesthesia/Blood Transfusion Reactions: No Reported Reaction Past Psychological History: No Psychological Hx Reported Smoking Status: Never smoker Past Alcohol Use History: Occasional Past Drug Use History: None Reported - Past Family History Father Family Medical History: Hypertension, Renal Disease Mother Family Medical History: Myocardial Infarction ([place]) Sister(s) Family Medical History: Cancer <Libertad Scales - Last Filed: 11/06/23 17:06> General Exam Limitations: no limitations General appearance: alert, in no apparent distress Head exam: Present: other (Multiple abrasions and hematomas to forehead) Eye exam: Present: normal appearance, PERRL, EOMI. Absent: scleral icterus, conjunctival injection, periorbital swelling Pupils: Present: normal accommodation ENT exam: Present: normal exam, normal oropharynx, mucous membranes moist Neck exam: Present: normal inspection. Absent: tenderness, meningismus, lymphadenopathy Respiratory exam: Present: normal lung sounds bilaterally. Absent: respiratory distress, wheezes, rales, rhonchi, stridor Cardiovascular Exam: Present: regular rate, normal rhythm, normal heart sounds. Absent: systolic murmur, diastolic murmur, rubs, gallop, clicks GI/Abdominal exam: Present: soft, normal bowel sounds. Absent: distended, tenderness, guarding, rebound, rigid Extremities exam: Present: normal inspection, full ROM, normal capillary refill, other (Ecchymosis to left thenar eminence. Patient has full range of motion of all extremities. No tenderness to palpation. Neurovascularly intact). Absent: tenderness, pedal edema, joint swelling, calf tenderness Neurological exam: Present: alert, oriented X3, CN II-XII intact Psychiatric exam: Present: normal affect, normal mood Skin exam: Present: warm, dry, intact, normal color. Absent: rash <Libertad Scales - Last Filed: 11/06/23 17:06> Course Vital Signs 11/06/23 11/06/23 11/06/23 16:19 16:44 16:59 Temperature 98.6 F Pulse Rate 60 53 L 52 L Respiratory 18 16 18 Rate Blood Pressure 174/86 168/79 173/88 O2 Sat by Pulse 96 97 97 Oximetry 11/06/23 11/06/23 11/06/23 17:14 17:21 17:24 Temperature Pulse Rate 61 68 68 Respiratory 18 18 18 Rate Blood Pressure 154/79 148/80 147/74 O2 Sat by Pulse 97 96 96 Oximetry 11/06/23 11/06/23 11/06/23 17:30 17:40 17:54 Temperature 98.7 F Pulse Rate 68 70 77 Respiratory 18 18 18 Rate Blood Pressure 147/73 127/70 133/64 O2 Sat by Pulse 97 95 96 Oximetry Medical Decision Making - Lab Data Result diagrams: 11/06/23 16:51 - EKG Data -: EKG Interpreted by Me - Radiology Data Radiology results: report reviewed, image reviewed <Libertad Scales - Last Filed: 11/06/23 17:06> - Lab Data Result diagrams: 11/06/23 16:51 11/06/23 16:51 <Shane Nino - Last Filed: 11/06/23 20:42> - Medical Decision Making Was pt. sent in by a medical professional or institution (, PA, BARGE CAPTAIN, urgent care, hospital, or fdc...) When possible be specific @ -No Did you speak to anyone other than the patient for history (EMS, parent, family, police, friend...)? What history was obtained from this source @ -No Did you review nursing and triage notes (agree or disagree)? Why? @ -I reviewed and agree with nursing and triage notes Were old charts reviewed (outside hosp., previous admission, EMS record, old EKG, old radiological studies, urgent care reports/EKG's, fdc records)? Report findings @ -No old charts were reviewed Differential Diagnosis (chest pain, altered mental status, abdominal pain women, abdominal pain men, vaginal bleeding, weakness, fever, dyspnea, syncope, headache, dizziness, GI bleed, back pain, seizure, CVA, palpatations, mental health, musculoskeletal)? @ -Differential Headache:Migraine, tension, cluster, carbon monoxide, central venous thrombosis, pension karma temporal arteritis, acute closure glaucoma, intercranial hemorrhage, mastoiditis, sinusitis, head injury, this is not meant to be an all-inclusive list. EKG interpreted by me (3pts min.). @ -As above X-rays interpreted by me (1pt min.). @ -None done CT interpreted by me (1pt min.). @ -CT brain C-spine significant for acute bilateral subdural and left subarachnoid hemorrhage. No significant midline shift. U/S interpreted by me (1pt. min.). @ -None done What testing was considered but not performed or refused? (CT, X-rays, U/S, labs)? Why? @ -None What meds were considered but not given or refused? Why? @ -None Did you discuss the management of the patient with other professionals (professionals i.e. DrLili, PA, BARGE CAPTAIN, lab, RT, psych nurse, child protective services social worker, louver mortiser operator, teacher, legal compliance officer, case supervisor)? Give summary @ -Yes, Dr. Nino discussed case with Bonny Smith who accepts trauma transfer. Was smoking cessation discussed for >3mins.? @ -No Was critical care preformed (if so, how long)? @ -No Were there social determinants of health that impacted care today? How? (Homelessness, low income, unemployed, alcoholism, drug addiction, transportation, low edu. Level, literacy, decrease access to med. care, fdc, rehab)? @ -No Was there de-escalation of care discussed even if they declined (Discuss DNR or withdrawal of care, Hospice)? DNR status @ -No What co-morbidities impacted this encounter? (DM, HTN, Smoking, COPD, CAD, Cancer, CVA, ARF, Chemo, Hep., AIDS, mental health diagnosis, sleep apnea, morbid obesity)? @ -None Was patient admitted / discharged? Hospital course, mention meds given and route , prescriptions, significant lab abnormalities, going to OR and other pertinent info. @ -Transferred. Patient is an 83-year-old male presented to ER via EMS with chief complaint of a fall. Patient is mildly confused of events of fall. He reports he slipped but is unsure on specifics. Denies any blood thinner use, chest pain, shortness of breath, dizziness, lightheadedness prior to fall. History and physical exam completed. Vitals on arrival significant for HR 60 bpm, BP 174/86, RR 18, oxygen saturation 96% on room air. Exam significant for multiple abrasions and hematomas on forehead. AxO x 4. GCS of 15. C-spine collar in place. Bilateral upper and lower extremities neurovascular intact patient is full range of motion. Patient no signs of acute distress and no acute neurological findings on exam. CT completed significant for acute bilateral subdural and left subarachnoid hemorrhage no significant midline shift. Patient started on Cardene drip as blood pressure found to be 168/79. Case discussed with Bonny Smith by Dr. Nino, ED attending, who accepts trauma transfer. Patient transferred for further treatment. Undiagnosed new problem with uncertain prognosis? @ -No Drug Therapy requiring intensive monitoring for toxicity (Heparin, Nitro, Insulin, Cardizem)? @ -No Were any procedures done? @ -No Diagnosis/symptom? @ -Bilateral subdural and left subarachnoid hemorrhage Acute, or Chronic, or Acute on Chronic? @ -Acute Uncomplicated (without systemic symptoms) or Complicated (systemic symptoms)? @ -Complicated Side effects of treatment? @ -No Exacerbation, Progression, or Severe Exacerbation? @ -No Poses a threat to life or bodily function? How? (Chest pain, [place], [place], pneumonia, PE, COPD, DKA, ARF, appy, cholecystitis, CVA, Diverticulitis, Homicidal, Suicidal, threat to staff... and all critical care pts) @ -Yes (Libertad Scales) Patient appropriately did not meet criteria for trauma activation, as he is not on blood thinners and had a fall from standing. Patient presents as a fall from standing not on blood thinners. Patient evaluated by our midlevel provider. Patient appears to have atraumatic left subdural and subarachnoid hemorrhage with no midline shift based on CT imaging as interpreted by myself. Trauma tr yoel was initiated. Patient is hypertensive and therefore will be started on a Cardene drip. Patient will also be treated with IV TXA. I spoke with the on- call trauma attending, Dr. Amezcua who accepted the transfer. Also spoke with the ER at [facility] Dr. Soni. His mental status remains unchanged. He is tolerating oral secretions. Patient will be transferred to [facility] in serious condition. Transferred on Cardene drip with goal systolic pressures less than 140 bpm as well as IV TXA. Diagnosis/symptom? @ -Traumatic subdural and subarachnoid hemorrhage, fall Acute, or Chronic, or Acute on Chronic? @ -Acute Uncomplicated (without systemic symptoms) or Complicated (systemic symptoms)? @ -Complicated Side effects of treatment? @ -None Exacerbation, Progression, or Severe Exacerbation] @ -No Poses a threat to life or bodily function? @ -Yes Was critical care preformed (if so, how long)? @ -yes, 35 minutes (Shane Nino) - Lab Data Lab Results 11/06/23 11/06/23 11/06/23 Range/Units 16:51 16:51 16:51 WBC 7.3 (3.8-10.6) k/uL RBC 4.16 L (4.30-5.90) m/uL Hgb 13.4 (13.0-17.5) gm/dL Hct 39.8 (39.0-53.0) % MCV 95.6 (80.0-100.0) fL MCH 32.2 (25.0-35.0) pg MCHC 33.7 (31.0-37.0) g/dL RDW 12.3 (11.5-15.5) % Plt Count 103 L (150-450) k/uL MPV 9.1 Neutrophils % 69 % Lymphocytes % 18 % Monocytes % 8 % Eosinophils % 2 % Basophils % 1 % Neutrophils # 5.0 (1.3-7.7) k/uL Lymphocytes # 1.3 (1.0-4.8) k/uL Monocytes # 0.6 (0-1.0) k/uL Eosinophils # 0.2 (0-0.7) k/uL Basophils # 0.1 (0-0.2) k/uL PT 10.7 (10.0-12.5) sec INR 1.0 (<1.2) APTT 23.3 (22.0-30.0) sec Sodium 140 (137-145) mmol/L Potassium 4.0 (3.5-5.1) mmol/L Chloride 111 H (98-107) mmol/L Carbon Dioxide 25 (22-30) mmol/L Anion Gap 4 mmol/L BUN 33 H (9-20) mg/dL Creatinine 1.11 (0.66-1.25) mg/dL Est GFR (CKD-EPI)AfAm 70 (>60 ml/min/1.73 sqM) Est GFR (CKD-EPI)NonAf 60 (>60 ml/min/1.73 sqM) Glucose 105 H (74-99) mg/dL Plasma Lactic Acid Morris (0.7-2.0) mmol/L Calcium 9.0 (8.4-10.2) mg/dL Total Bilirubin 0.6 (0.2-1.3) mg/dL AST 28 (17-59) U/L ALT 30 (4-49) U/L Alkaline Phosphatase 68 (38-126) U/L Troponin I (0.000-0.034) ng/mL Total Protein 5.7 L (6.3-8.2) g/dL Albumin 3.3 L (3.5-5.0) g/dL 11/06/23 11/06/23 Range/Units 16:51 16:51 WBC (3.8-10.6) k/uL RBC (4.30-5.90) m/uL Hgb (13.0-17.5) gm/dL Hct (39.0-53.0) % MCV (80.0-100.0) fL MCH (25.0-35.0) pg MCHC (31.0-37.0) g/dL RDW (11.5-15.5) % Plt Count (150-450) k/uL MPV Neutrophils % % Lymphocytes % % Monocytes % % Eosinophils % % Basophils % % Neutrophils # (1.3-7.7) k/uL Lymphocytes # (1.0-4.8) k/uL Monocytes # (0-1.0) k/uL Eosinophils # (0-0.7) k/uL Basophils # (0-0.2) k/uL PT (10.0-12.5) sec INR (<1.2) APTT (22.0-30.0) sec Sodium (137-145) mmol/L Potassium (3.5-5.1) mmol/L Chloride (98-107) mmol/L Carbon Dioxide (22-30) mmol/L Anion Gap mmol/L BUN (9-20) mg/dL Creatinine (0.66-1.25) mg/dL Est GFR (CKD-EPI)AfAm (>60 ml/min/1.73 sqM) Est GFR (CKD-EPI)NonAf (>60 ml/min/1.73 sqM) Glucose (74-99) mg/dL Plasma Lactic Acid Morris 0.9 (0.7-2.0) mmol/L Calcium (8.4-10.2) mg/dL Total Bilirubin (0.2-1.3) mg/dL AST (17-59) U/L ALT (4-49) U/L Alkaline Phosphatase (38-126) U/L Troponin I <0.012 (0.000-0.034) ng/mL Total Protein (6.3-8.2) g/dL Albumin (3.5-5.0) g/dL - EKG Data EKG Comments: EKG taken at 16: 20 shows a sinus rhythm with T wave inversion in lead III. Morris tricular rate 62, DC interval 176, QRS duration 111, QT/QTc 414/419. (Libertad Scales) Critical Care Time Critical Care Time: Yes Total Critical Care Time: 35 <Shane Nino - Last Filed: 11/06/23 20:42> Disposition Time of Disposition: 17:05 - Out of Hospital Transfer - Req. Specs Out of Hospital Transfer - Requested Specifics: Neurological ICU <Libertad Scales - Last Filed: 11/06/23 17:06> - Out of Hospital Transfer - Req. Specs Out of Hospital Transfer - Requested Specifics: Other Emergency Center (Transferred for evaluation by neurosurgery and higher level of trauma care.) <Shane Nino - Last Filed: 11/06/23 20:42> Clinical Impression: Fall, Subdural hemorrhage, Subarachnoid hemorrhage Disposition: OTHER INSTITUTION NOT DEFINED Condition: Serious Referrals: Mc Mukherjee DO [Primary Care Provider] - 1-2 days
[2023-11-06] MEDS: DIPH,PERTUS(ACELL)TETVAC-LF 0.5 ML VIAL IM ONE (17:02)
[2023-11-06 17:03] LABS: Basophils # (A) 0.1 k/uL (0-0.2); Basophils % (A) 1 %; Eosinophils # (A) 0.2 k/uL (0-0.7); Eosinophils % (A) 2 %; HCT 39.8 % (39.0-53.0); HGB 13.4 gm/dL (13.0-17.5); Lymphocytes # (A) 1.3 k/uL (1.0-4.8); Lymphocytes % (A) 18 %; MCH 32.2 pg (25.0-35.0); MCHC 33.7 g/dL (31.0-37.0); MCV 95.6 fL (80.0-100.0); Mean Platelet Volume 9.1; Monocytes # (A) 0.6 k/uL (0-1.0); Monocytes % (A) 8 %; Neutrophils % (A) 69 %; Platelet Count 103 k/uL (150-450); RBC 4.16 m/uL (4.30-5.90); RDW 12.3 % (11.5-15.5); WBC 7.3 k/uL (3.8-10.6)
[2023-11-06] MEDS: ACETAMINOPHEN TAB 325 MG TAB PO STA (17:05)
--- NOTE | 2023-11-06 17:05 | CT ---
EXAMINATION TYPE: CT brain cspine wo con CT DLP: 1685 mGycm, Automated exposure control for dose reduction was used. DATE OF EXAM: 11/06/2023 4:51 PM COMPARISON: None. CLINICAL INDICATION:Male, 83 years old with history of fall with LOC; TECHNIQUE: Brain: Multiple axial CT images of the brain were obtained without IV contrast. Cspine: Axial CT images from the skull base to the inferior aspect of T2 we obtained without intraven ous contrast. Coronal and sagittal reformatted images were also reviewed. FINDINGS: Brain: Extra-axial spaces: High density blood products are seen along the tentorium bilaterally and layering in the bilateral subdural space. There is a subarachnoid component with fluid interdigitating sulci on the left. Ventricular system: Within normal limits, no blood product identified within the ventricular system. Right posterior ventriculostomy catheter placement. Cerebral parenchyma: No acute intraparenchymal hemorrhage or mass effect. The samano-white junction is well differentiated. Cerebellum: Unremarkable. Mass effect: No evidence of midline shift. Intracranial vasculature: Atherosclerotic calcifications of the intracranial vessels. Soft tissues: Normal. Calvarium/osseous structures: No depressed skull fracture. Paranasal sinuses and mastoid air cells: Mild scattered mucosal thickening and or secretions. Visualized orbits: Orbital contents are intact. Cervical spine: Fracture: None. Osseous structures: Multilevel degenerative disc disease changes with endplate spurring and disc oste ophyte complex's. Vertebral alignment: Within normal limits. Spinal canal/Neural Foramina: No evidence of significant spinal canal narrowing. No evidence for sign ificant neural foraminal stenosis. Neck soft tissues: Prevertebral soft tissues are within normal limits. Other: The airway is patent. The lung apices are clear. Atherosclerosis of the carotid bifurcations. IMPRESSION: 1. Acute bilateral subdural and left subarachnoid hemorrhage. No significant midline shift at this t christiano. 2. No evidence of cervical spine fracture. 3. Mild multilevel degenerative disc disease. Findings communicated to the ER ordering provider's on 11/06/2023 4:[address] Marcelino Graf.
[2023-11-06] MEDS: MORPHINE SULFATE 4 MG/ML SYRINGE IVP STA (17:07)
[2023-11-06] MEDS: niCARdipine 20 MG in SODIUM CHLORIDE 0.9% 192 ML IV SCH (17:12)
[2023-11-06 17:14] LABS: Partial Thromboplastin Time 23.3 sec (22.0-30.0); Prothrombin Time 10.7 sec (10.0-12.5)
[2023-11-06 17:21] LABS: ALT 30 U/L (4-49); AST 28 U/L (17-59); African American GFR (CKD) 70 (>60 ml/min/1.73 sqM); Albumin 3.3 g/dL (3.5-5.0); Alkaline Phosphatase 68 U/L (38-126); Anion Gap 4 mmol/L; Blood Urea Nitrogen 33 mg/dL (9-20); Carbon Dioxide 25 mmol/L (22-30); Chloride 111 mmol/L (98-107); Glucose 105 mg/dL (74-99); Non-African American GFR(CKD) 60 (>60 ml/min/1.73 sqM); Sodium 140 mmol/L (137-145); Total Bilirubin 0.6 mg/dL (0.2-1.3); Total Protein 5.7 g/dL (6.3-8.2)
[2023-11-06] MEDS: TRANEXAMIC 1,000 MG/100ML-NACL 1,000 MG in SALINE 1 100ML.BAG IV STA (17:21)
[2023-11-06 17:24] VITALS: RESP 18
[2023-11-06] MEDS: TRANEXAMIC ACID 1,000 MG in SODIUM CHLORIDE 0.9% 250 ML IV ONE (17:39)
[2023-11-06 18:26] VITALS: BP 133/64; PULSE 77; TEMP 98.7
== END 2023-11-06 17:59 | disposition other institution (70) ==
LOC: EC 16:17
DX: S06.5XAA Traumatic subdural hemorrhage with loss of consciousness status unknown, initial encounter (principal); S06.6XAA Traumatic subarachnoid hemorrhage with loss of consciousness status unknown, initial encounter; S00.83XA Contusion of other part of head, initial encounter; S60.222A Contusion of left hand, initial encounter; R40.2362 Coma scale, best motor response, obeys commands, at arrival to emergency department; R40.2142 Coma scale, eyes open, spontaneous, at arrival to emergency department; R40.2252 Coma scale, best verbal response, oriented, at arrival to emergency department; Z23 Encounter for immunization; W01.0XXA Fall on same level from slipping, tripping and stumbling without subsequent striking against object, initial encounter
CPT/HCPCS: 99291; 90471; 36415; 93005; 80053; 84484; 85025; 85610; 85730; 72125; 70450; 90715; 96365; 96368; 96375; 83605; J2270

== ENCOUNTER 2023-11-28 21:30 | Emergency (ER) | payer MEDICARE ==
[2023-11-28 21:41] VITALS: RESP 16
--- NOTE | 2023-11-28 22:01 | ED ---
Fall HPI - General Chief Complaint: Fall Stated Complaint: Fall Time Seen by Provider: 11/28/23 21:40 Source: patient, EMS Mode of arrival: EMS - History of Present Illness Initial Comments: Paul is an 83-year-old gentleman who presents to the ER today via ambulance from [facility] after an apparent fall. Patient's history is significant for a fall last month that apparently occurred in his barn at home, resulting in bilateral subdural and subarachnoid bleed. Patient was inpatient at [facility] for evaluation by neurosurgery and subsequently discharged home to the [facility]. - Related Data Home Medications Medication Instructions Recorded Confirmed oxyBUTYnin chloride [Ditropan] 5 mg PO BID 01/11/16 05/25/22 Aspirin EC [Ecotrin Low Dose] 81 mg PO HS 03/25/18 05/25/22 Cholecalciferol [Vitamin D3 (25 100 mcg PO DAILY 03/25/18 05/25/22 Mcg = 1000 Iu)] Fish Oil/Dha/Epa [Fish Oil 1,200 1 cap PO DAILY 03/25/18 05/25/22 mg Fish Oil] Multivit-Min/FA/Lycopen/Lutein 1 tab PO DAILY 03/25/18 05/25/22 [Centrum Silver Tablet] Tamsulosin [Flomax] 0.4 mg PO BID 03/25/18 05/25/22 Irbesartan [Avapro] 150 mg PO DAILY 02/21/21 05/25/22 Melatonin [Melatonin ER] 10 mg PO HS PRN 02/21/21 05/25/22 Vit C/E/Zn/Coppr/Lutein/Zeaxan 1 cap PO BID 02/21/21 05/25/22 [Preservision Areds 2 Softgel] Nitroglycerin Sl Tabs [Nitrostat] 0.4 mg SL Q5M PRN 08/20/21 05/25/22 amLODIPine BESYLATE [Norvasc] 2.5 mg PO DAILY 09/02/21 05/25/22 amLODIPine BESYLATE [Norvasc] 5 mg PO HS 09/02/21 05/25/22 Previous Rx's Medication Instructions Recorded Atorvastatin [Lipitor] 80 mg PO HS #30 tab 01/13/16 Metoprolol Tartrate [Lopressor] 25 mg PO BID #60 tab 01/13/16 HYDROcodone/APAP 5-325MG [[facility] 1 tab PO Q4HR PRN 3 Days #18 tab 06/10/22 5-325] HYDROcodone/APAP 7.5-325MG [[facility] 1 tab PO Q6HR PRN 3 Days #12 tab 05/25/23 7.5-325] Ondansetron Odt [Zofran Odt] 4 mg PO Q8HR PRN #10 tab 05/25/23 Allergies Allergy/AdvReac Type Severity Reaction Status Date / Time No Known Allergies Allergy Verified 11/06/23 16:23 Review of Systems ROS Statement: Those systems with pertinent positive or pertinent negative responses have been documented in the HPI. ROS Other: All systems not noted in ROS Statement are negative. Past Medical History Past Medical History: Cancer, Hyperlipidemia, Hypertension, Myocardial Infarction ([place]), Prostate Disorder, Sleep Apnea/CPAP/BIPAP Additional Past Medical History / Comment(s): hx kidney stones,LEFT REAR SHOULDER MELANOMA REMOVED. wears cpap. recent hx of PAYNE and stumbling gait, seen by Dr Witt. CT done Last Myocardial Infarction Date:: 01/10/16 History of Any Multi-Drug Resistant Organisms: None Reported Past Surgical History: Adenoidectomy, Appendectomy, Cholecystectomy, Orthopedic Surgery, Prostate Surgery, Tonsillectomy Additional Past Surgical History / Comment(s): left Hand surg ganglion cyst ; prostate surg; spinal tap Past Anesthesia/Blood Transfusion Reactions: No Reported Reaction Past Psychological History: No Psychological Hx Reported Smoking Status: Never smoker Past Alcohol Use History: Occasional Past Drug Use History: None Reported - Past Family History Father Family Medical History: Hypertension, Renal Disease Mother Family Medical History: Myocardial Infarction ([place]) Sister(s) Family Medical History: Cancer General Exam - General Exam Comments Initial Comments: Physical Exam GENERAL: Elderly gentleman no acute distress HENT: There is a hematoma posterior to the right ear, no open injuries or lacerations EYES: PERRL, EOMI PULMONARY: Unlabored respirations. CARDIOVASCULAR: RRR Warm and well perfused extremities ABDOMEN: Non-distended SKIN: No rashes or bruising : Deferred NEUROLOGIC: Alert and oriented to person MUSCULOSKELETAL: Moving all extremities with no apparent injury PSYCHIATRIC: No SI/HI Limitations: no limitations Course Vital Signs 11/28/23 11/28/23 21:33 22:52 Pulse Rate 94 86 Respiratory 16 16 Rate Blood Pressure 101/56 127/78 O2 Sat by Pulse 97 95 Oximetry Medical Decision Making - Medical Decision Making Was pt. sent in by a medical professional or institution (JUAN C Mariscal, VEGETABLE CUTTER, urgent care, hospital, or correction...) When possible be specific @ -Yes sent from [facility] Did you speak to anyone other than the patient for history (EMS, parent, family, police, friend...)? What history was obtained from this source @ -EMS Did you review nursing and triage notes (agree or disagree)? Why? @ -I reviewed and agree with nursing and triage notes Were old charts reviewed (outside hosp., previous admission, EMS record, old EKG, old radiological studies, urgent care reports/EKG's, [facility] records)? Report findings @ -VS admission was reviewed, admission paperwork for [facility] was reviewed Differential Diagnosis (chest pain, altered mental status, abdominal pain women, abdominal pain men, vaginal bleeding, weakness, fever, dyspnea, syncope, headache, dizziness, GI bleed, back pain, seizure, CVA, palpatations, mental health)? @ -Not applicable EKG interpreted by me (3pts min.). @ -As above X-rays interpreted by me (1pt min.). @ -None done CT interpreted by me (1pt min.). @ -No acute bleed, C-spine with no malalignment or fractures U/S interpreted by me (1pt. min.). @ -None done What testing was considered but not performed or refused? (CT, X-rays, U/S, labs)? Why? @ -None What meds were considered but not given or refused? Why? @ -None Did you discuss the management of the patient with other professionals (professionals i.e. JUAN C Mariscal, VEGETABLE CUTTER, lab, RT, psych nurse, 7th grade social studies teacher, air deodorizer servicer, teacher, supervisory cbp officer, medical case manager)? Give summary @ -No Was smoking cessation discussed for >3mins.? @ -No Was critical care preformed (if so, how long)? @ -No Were there social determinants of health that impacted care today? How? (Homelessness, low income, unemployed, alcoholism, drug addiction, transportation, low edu. Level, literacy, decrease access to med. care, fci, rehab)? @ -No Was there de-escalation of care discussed even if they declined (Discuss DNR or withdrawal of care, Hospice)? DNR status @ -No What co-morbidities impacted this encounter? (DM, HTN, Smoking, COPD, CAD, Cancer, CVA, ARF, Chemo, Hep., AIDS, mental health diagnosis, sleep apnea, morbid obesity)? @ -None Was patient admitted / discharged? Hospital course, mention meds given and route, prescriptions, significant lab abnormalities, going to OR and other pertinent info. @ -Discharged The patient was seen and evaluated, history is obtained from the patient, review of medical records and family at bedside. Patient with a recent traumatic brain injury presenting after a fall at [facility] with only a small contusion on his posterior scalp. CT scan was obtained there is no signs of traumatic injury today. Family was reassured and comfortable plan for discharge home. Due to patient's memory impairment and dementia symptoms he will be transferred via ambulance. Undiagnosed new problem with uncertain prognosis? @ -No Drug Therapy requiring intensive monitoring for toxicity (Heparin, Nitro, Insulin, Cardizem)? @ -No Were any procedures done? @ -No Diagnosis/symptom? @ -Fall at [facility] Acute, or Chronic, or Acute on Chronic? @ -Acute Uncomplicated (without systemic symptoms) or Complicated (systemic symptoms)? @ -Default Side effects of treatment? @ -No Exacerbation, Progression, or Severe Exacerbation? @ -No Poses a threat to life or bodily function? How? (Chest pain, [place], [place], pneumonia, PE, COPD, DKA, ARF, appy, cholecystitis, CVA, Diverticulitis, Homicidal, Suicidal, threat to staff... and all critical care pts) @ -Unlikely Disposition Clinical Impression: Fall Disposition: HOME SELF-CARE Condition: Stable Instructions (If sedation given, give patient instructions): Fall Prevention for Older Adults (ED) Is patient prescribed a controlled substance at d/c from ED?: No Referrals: Mc Mukherjee DO [Primary Care Provider] - 1-2 days
[2023-11-28 22:56] VITALS: BP 127/78; PULSE 86
--- NOTE | 2023-11-28 22:56 | CT ---
EXAM: CT Head Without Intravenous Contrast CLINICAL HISTORY: ITS.REASON CT Reason: fall TECHNIQUE: Axial computed tomography images of the head/brain without intravenous contrast. CTDI is 45.2 mGy and DLP is 1014 mGy-cm. This CT exam was performed using one or more of the following dose reduction techniques: automated exposure control, adjustment of the mA and/or kV according to patient size, and/or use of iterative reconstruction technique. COMPARISON: No relevant prior studies available. 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 No midline shift. No hemorrhage. No significant white matter disease. Ventricles: See below. Bones/joints: Unremarkable. No acute fracture. Soft tissues: Unremarkable. Sinuses: Unremarkable as visualized. No acute sinusitis. Mastoid air cells: Unremarkable as visualized. No mastoid effusion. Tubes, lines and devices: RIGHT occipital shunt catheter terminates in the midline of the lateral ventricles. IMPRESSION: No acute findings in the head/brain. EXAM: CT Cervical Spine Without Intravenous Contrast CLINICAL HISTORY: ITS.REASON CT Reason: fall TECHNIQUE: Axial computed tomography images of the cervical spine without intravenous contrast. CTDI is 15.8 mGy and DLP is 442.2 mGy-cm. This CT exam was performed using one or more of the following dose reduction techniques: automated exposure control, adjustment of the mA and/or kV according to patient size, and/or use of iterative reconstruction technique. COMPARISON: No relevant prior studies available. FINDINGS: The vertebral body heights are maintained. The craniocervical junction is intact. The atlanto-dens interval is maintained. The dens is intact. There is no spondylolisthesis. Multilevel cervical spondylosis and degenerative disc disease. Straightening of the cervical lordosis. The unenhanced neck soft tissues are grossly unremarkable. The visualized lung apices are grossly clear. IMPRESSION: No acute fracture or subluxation of the cervical spine.
== END 2023-11-29 01:15 | disposition home or self-care (01) ==
LOC: EC 21:30
DX: S00.03XA Contusion of scalp, initial encounter (principal); S00.431A Contusion of right ear, initial encounter; W19.XXXA Unspecified fall, initial encounter; Y92.129 Unspecified place in nursing home as the place of occurrence of the external cause
CPT/HCPCS: 70450; 72125; 99284

== ENCOUNTER 2023-12-03 22:57 | Emergency (ER) | payer MEDICARE ==
--- NOTE | 2023-12-04 00:12 | CT ---
EXAM: CT Head Without Intravenous Contrast CLINICAL HISTORY: ITS.REASON CT Reason: s/p fall. on asa. hx of bleed 11/27 TECHNIQUE: Axial computed tomography images of the head/brain without intravenous contrast. CTDI is 45.3 mGy and DLP is 1147 mGy-cm. This CT exam was performed using one or more of the following dose reduction techniques: automated exposure control, adjustment of the mA and/or kV according to patient size, and/or use of iterative reconstruction technique. COMPARISON: No relevant prior studies available. FINDINGS: No acute intracranial hemorrhage. No midline shift or mass effect. Chronic LEFT subdural collection measures 9 mm. Chronic RIGHT subdural collection measures 4 mm. The territorial samano-white matter differentiation is maintained throughout. RIGHT occipital catheter terminates in the LEFT lateral ventricle. Chronic LEFT subdural collection measures 9 mm. Chronic RIGHT subdural collection measures 4 mm. Age-related cerebral volume loss. Periventricular and subcortical white matter hypoattenuation, consistent with chronic microangiopathy. The visualized orbits appear grossly unremarkable. IMPRESSION: No acute intracranial hemorrhage, midline shift, or mass effect. Chronic LEFT subdural collection measures 9 mm. Chronic RIGHT subdural collection measures 4 mm. RIGHT occipital catheter terminates in the LEFT lateral ventricle. EXAM: CT Cervical Spine Without Intravenous Contrast CLINICAL HISTORY: ITS.REASON CT Reason: s/p fall. on asa. hx of bleed 11/27 TECHNIQUE: Axial computed tomography images of the cervical spine without intravenous contrast. CTDI is 16.6 mGy and DLP is 489.2 mGy-cm. This CT exam was performed using one or more of the following dose reduction techniques: automated exposure control, adjustment of the mA and/or kV according to patient size, and/or use of iterative reconstruction technique. COMPARISON: No relevant prior studies available. FINDINGS: The vertebral body heights are maintained. The craniocervical junction is intact. The atlanto-dens interval is maintained. The dens is intact. There is no spondylolisthesis. Multilevel cervical spondylosis and degenerative disc disease. Straightening of the cervical lordosis. The unenhanced neck soft tissues are grossly unremarkable. The visualized lung apices are grossly clear. IMPRESSION: No acute fracture or subluxation of the cervical spine.
--- NOTE | 2023-12-04 00:44 | ED ---
Fall HPI - General Chief Complaint: Fall Stated Complaint: Fall Time Seen by Provider: 12/03/23 23:12 Source: EMS Mode of arrival: EMS - History of Present Illness Initial Comments: 83-year-old male with a past medical history significant for fall on 11/06/2023 in which found to have bilateral subdural bleed presenting to the ED with a chief complaint of fall. Patient has history of dementia history limited. Does not recall all the events of the fall however reports that he fell backwards and hit the back of his head. Patient is on baby aspirin. At this time has no complaints. Denies headache or pain of the extremities. - Related Data Home Medications Medication Instructions Recorded Confirmed oxyBUTYnin chloride [Ditropan] 5 mg PO BID 01/11/16 05/25/22 Aspirin EC [Ecotrin Low Dose] 81 mg PO HS 03/25/18 05/25/22 Cholecalciferol [Vitamin D3 (25 100 mcg PO DAILY 03/25/18 05/25/22 Mcg = 1000 Iu)] Fish Oil/Dha/Epa [Fish Oil 1,200 1 cap PO DAILY 03/25/18 05/25/22 mg Fish Oil] Multivit-Min/FA/Lycopen/Lutein 1 tab PO DAILY 03/25/18 05/25/22 [Centrum Silver Tablet] Tamsulosin [Flomax] 0.4 mg PO BID 03/25/18 05/25/22 Irbesartan [Avapro] 150 mg PO DAILY 02/21/21 05/25/22 Melatonin [Melatonin ER] 10 mg PO HS PRN 02/21/21 05/25/22 Vit C/E/Zn/Coppr/Lutein/Zeaxan 1 cap PO BID 02/21/21 05/25/22 [Preservision Areds 2 Softgel] Nitroglycerin Sl Tabs [Nitrostat] 0.4 mg SL Q5M PRN 08/20/21 05/25/22 amLODIPine BESYLATE [Norvasc] 2.5 mg PO DAILY 09/02/21 05/25/22 amLODIPine BESYLATE [Norvasc] 5 mg PO HS 09/02/21 05/25/22 Previous Rx's Medication Instructions Recorded Atorvastatin [Lipitor] 80 mg PO HS #30 tab 01/13/16 Metoprolol Tartrate [Lopressor] 25 mg PO BID #60 tab 01/13/16 HYDROcodone/APAP 5-325MG [[place] 1 tab PO Q4HR PRN 3 Days #18 tab 06/10/22 5-325] HYDROcodone/APAP 7.5-325MG [[place] 1 tab PO Q6HR PRN 3 Days #12 tab 05/25/23 7.5-325] Ondansetron Odt [Zofran Odt] 4 mg PO Q8HR PRN #10 tab 05/25/23 Allergies Allergy/AdvReac Type Severity Reaction Status Date / Time No Known Allergies Allergy Verified 11/06/23 16:23 Review of Systems ROS Statement: Those systems with pertinent positive or pertinent negative responses have been documented in the HPI. ROS Other: All systems not noted in ROS Statement are negative. Past Medical History Past Medical History: Cancer, Hyperlipidemia, Hypertension, Myocardial Infarction ([place]), Prostate Disorder, Sleep Apnea/CPAP/BIPAP Additional Past Medical History / Comment(s): hx kidney stones,LEFT REAR SHOULDER MELANOMA REMOVED. wears cpap. recent hx of PAYNE and stumbling gait, seen by Dr Witt. CT done Last Myocardial Infarction Date:: 01/10/16 History of Any Multi-Drug Resistant Organisms: None Reported Past Surgical History: Adenoidectomy, Appendectomy, Cholecystectomy, Orthopedic Surgery, Prostate Surgery, Tonsillectomy Additional Past Surgical History / Comment(s): left Hand surg ganglion cyst ; prostate surg; spinal tap Past Anesthesia/Blood Transfusion Reactions: No Reported Reaction Past Psychological History: No Psychological Hx Reported Smoking Status: Never smoker Past Alcohol Use History: Occasional Past Drug Use History: None Reported - Past Family History Father Family Medical History: Hypertension, Renal Disease Mother Family Medical History: Myocardial Infarction ([place]) Sister(s) Family Medical History: Cancer General Exam Limitations: altered mental status General appearance: alert, in no apparent distress Eye exam: Present: normal appearance Neck exam: Present: normal inspection Respiratory exam: Present: normal lung sounds bilaterally Cardiovascular Exam: Present: regular rate GI/Abdominal exam: Present: soft, normal bowel sounds. Absent: distended, tenderness, guarding, rebound, rigid Extremities exam: Present: normal inspection Back exam: Present: other (No midline spinal tenderness to palpation.) Neurological exam: Present: alert Skin exam: Present: warm, dry Course Vital Signs 12/03/23 12/04/23 23:06 00:20 Pulse Rate 93 90 Respiratory 22 16 Rate Blood Pressure 113/73 109/67 O2 Sat by Pulse 97 94 L Oximetry Medical Decision Making - Medical Decision Making Was pt. sent in by a medical professional or institution (, JUAN C, RELATIONSHIP EXECUTIVE, urgent care, hospital, or fdc...) When possible be specific @ -No Did you speak to anyone other than the patient for history (EMS, parent, family, police, friend...)? What history was obtained from this source @ -No Did you review nursing and triage notes (agree or disagree)? Why? @ -I reviewed and agree with nursing and triage notes Were old charts reviewed (outside hosp., previous admission, EMS record, old EKG, old radiological studies, urgent care reports/EKG's, fdc records)? Report findings @ -Reviewed prior records. For further details please see HPI. Differential Diagnosis (chest pain, altered mental status, abdominal pain women, abdominal pain men, vaginal bleeding, weakness, fever, dyspnea, syncope, headache, dizziness, GI bleed, back pain, seizure, CVA, palpatations, mental health, musculoskeletal)? @ -Differential Headache: Migraine, tension, cluster, carbon monoxide, central venous thrombosis, pension karma temporal arteritis, acute closure glaucoma, intercranial hemorrhage, mastoiditis, sinusitis, head injury, this is not meant to be an all-inclusive list. EKG interpreted by me (3pts min.). @ -None X-rays interpreted by me (1pt min.). @ -None done CT interpreted by me (1pt min.). @ -CT brain and cervical spine interpreted me which revealed no evidence of acute finding. U/S interpreted by me (1pt. min.). @ -None done What testing was considered but not performed or refused? (CT, X-rays, U/S, labs)? Why? @ -None What meds were considered but not given or refused? Why? @ -None Did you discuss the management of the patient with other professionals (professionals i.e. JUAN C Mariscal, RELATIONSHIP EXECUTIVE, lab, RT, psych nurse, social services specialist, corporate lawyer, teacher, learning officer, returned case inspector)? Give summary @ -No Was smoking cessation discussed for >3mins.? @ -No Was critical care preformed (if so, how long)? @ -No Were there social determinants of health that impacted care today? How? (Homelessness, low income, unemployed, alcoholism, drug addiction, transportation, low edu. Level, literacy, decrease access to med. care, alf, rehab)? @ -No Was there de-escalation of care discussed even if they declined (Discuss DNR or withdrawal of care, Hospice)? DNR status @ -No What co-morbidities impacted this encounter? (DM, HTN, Smoking, COPD, CAD, Cancer, CVA, ARF, Chemo, Hep., AIDS, mental health diagnosis, sleep apnea, morbid obesity)? @ -Dementia Was patient admitted / discharged? Hospital course, mention meds given and route, prescriptions, significant lab abnormalities, going to OR and other pertinent info. @ -Discharge 83-year-old male with a past medical history significant for prior fall with bilateral subdural hematoma presenting to the ED after another fall today. Patient reports he fell and hit the back of his head. At this time, patient denies any pain otherwise has no other complaints. CT brain and cervical spine were performed which showed these chronic bilateral some dural collections with no acute changes. Patient discharged home in stable condition. Undiagnosed new problem with uncertain prognosis? @ -No Drug Therapy requiring intensive monitoring for toxicity (Heparin, Nitro, Insulin, Cardizem)? @ -No Were any procedures done? @ -No Diagnosis/symptom? @ -Fall, head injury Acute, or Chronic, or Acute on Chronic? @ -Acute Uncomplicated (without systemic symptoms) or Complicated (systemic symptoms)? @ -Uncomplicated Side effects of treatment? @ -No Exacerbation, Progression, or Severe Exacerbation? @ -No Poses a threat to life or bodily function? How? (Chest pain, [place], [place], pneumonia, PE, COPD, DKA, ARF, appy, cholecystitis, CVA, Diverticulitis, Homicidal, Suicidal, threat to staff... and all critical care pts) @ -No Disposition Clinical Impression: Fall Disposition: HOME SELF-CARE Condition: Good Instructions (If sedation given, give patient instructions): Fall Prevention for Older Adults (ED) Additional Instructions: Please return to the Emergency Department if symptoms worsen or any other concerns. Is patient prescribed a controlled substance at d/c from ED?: No Referrals: Mc Mukherjee DO [Primary Care Provider] - 1-2 days Time of Disposition: 00:48
[2023-12-04 01:45] VITALS: BP 128/79; PULSE 92; RESP 18; TEMP 98.7
== END 2023-12-04 01:49 | disposition home or self-care (01) ==
LOC: EC 22:57
DX: S09.90XA Unspecified injury of head, initial encounter (principal); W01.0XXA Fall on same level from slipping, tripping and stumbling without subsequent striking against object, initial encounter
CPT/HCPCS: 70450; 72125; 99284

== ENCOUNTER 2024-01-29 15:52 | Emergency (ER) | payer MEDICARE ==
--- NOTE | 2024-01-29 16:22 | ED ---
General Adult HPI - General Source: patient, RN notes reviewed Limitations: no limitations <Anastacia Simms - Last Filed: 01/29/24 16:20> - General Source: RN notes reviewed, old records reviewed Mode of arrival: ambulatory Limitations: no limitations - History of Present Illness -: days(s) Radiation: non-radiation Severity scale (1-10): 10 Quality: stabbing Consistency: constant Improves with: none Worsens with: none Associated Symptoms: confusion Treatments Prior to Arrival: none <Bruce Cloud - Last Filed: 02/09/24 17:38> - General Chief complaint: Recheck/Abnormal Lab/Rx Stated complaint: peg tube comp Time Seen by Provider: 01/29/24 16:15 - History of Present Illness Initial comments: Quick note: 83 year old male presents to the emergency department for evaluation of leaking G tube. Patient reports that it has been leaking yellow fluid recently. It is currently not leaking. Denies fever, chills, surrounding redness. (Anastacia Simms) This is a 83-year-old male to the ER for evaluation of G-tube, G-tube evaluation leaking fluid concern for G-tube malfunction (Bruce Cloud) - Related Data Home Medications Medication Instructions Recorded Confirmed oxyBUTYnin chloride [Ditropan] 5 mg PO BID 01/11/16 05/25/22 Aspirin EC [Ecotrin Low Dose] 81 mg PO HS 03/25/18 05/25/22 Cholecalciferol [Vitamin D3 (25 100 mcg PO DAILY 03/25/18 05/25/22 Mcg = 1000 Iu)] Fish Oil/Dha/Epa [Fish Oil 1,200 1 cap PO DAILY 03/25/18 05/25/22 mg Fish Oil] Multivit-Min/FA/Lycopen/Lutein 1 tab PO DAILY 03/25/18 05/25/22 [Centrum Silver Tablet] Tamsulosin [Flomax] 0.4 mg PO BID 03/25/18 05/25/22 Irbesartan [Avapro] 150 mg PO DAILY 02/21/21 05/25/22 Melatonin [Melatonin ER] 10 mg PO HS PRN 02/21/21 05/25/22 Vit C/E/Zn/Coppr/Lutein/Zeaxan 1 cap PO BID 02/21/21 05/25/22 [Preservision Areds 2 Softgel] Nitroglycerin Sl Tabs [Nitrostat] 0.4 mg SL Q5M PRN 08/20/21 05/25/22 amLODIPine BESYLATE [Norvasc] 2.5 mg PO DAILY 09/02/21 05/25/22 amLODIPine BESYLATE [Norvasc] 5 mg PO HS 09/02/21 05/25/22 Previous Rx's Medication Instructions Recorded Atorvastatin [Lipitor] 80 mg PO HS #30 tab 01/13/16 Metoprolol Tartrate [Lopressor] 25 mg PO BID #60 tab 01/13/16 HYDROcodone/APAP 5-325MG [[place] 1 tab PO Q4HR PRN 3 Days #18 tab 06/10/22 5-325] HYDROcodone/APAP 7.5-325MG [[place] 1 tab PO Q6HR PRN 3 Days #12 tab 05/25/23 7.5-325] Ondansetron Odt [Zofran Odt] 4 mg PO Q8HR PRN #10 tab 05/25/23 Allergies Allergy/AdvReac Type Severity Reaction Status Date / Time No Known Allergies Allergy Verified 11/06/23 16:23 Review of Systems ROS Other: All systems not noted in ROS Statement are negative. <Anastacia Simms - Last Filed: 01/29/24 16:20> ROS Other: All systems not noted in ROS Statement are negative. <Bruce Cloud - Last Filed: 02/09/24 17:38> ROS Statement: Those systems with pertinent positive or pertinent negative responses have been documented in the HPI. Past Medical History Past Medical History: Cancer, Hyperlipidemia, Hypertension, Myocardial Infarction ([place]), Prostate Disorder, Sleep Apnea/CPAP/BIPAP Additional Past Medical History / Comment(s): hx kidney stones,LEFT REAR SHOULDER MELANOMA REMOVED. wears cpap. recent hx of PAYNE and stumbling gait, seen by Dr Witt. CT done Last Myocardial Infarction Date:: 01/10/16 History of Any Multi-Drug Resistant Organisms: None Reported Past Surgical History: Adenoidectomy, Appendectomy, Cholecystectomy, Orthopedic Surgery, Prostate Surgery, Tonsillectomy Additional Past Surgical History / Comment(s): left Hand surg ganglion cyst ; prostate surg; spinal tap Past Anesthesia/Blood Transfusion Reactions: No Reported Reaction Past Psychological History: No Psychological Hx Reported Smoking Status: Never smoker Past Alcohol Use History: Occasional Past Drug Use History: None Reported - Past Family History Father Family Medical History: Hypertension, Renal Disease Mother Family Medical History: Myocardial Infarction ([place]) Sister(s) Family Medical History: Cancer <Anastacia Simms - Last Filed: 01/29/24 16:20> General Exam Limitations: no limitations <Anastacia Simms - Last Filed: 01/29/24 16:20> General appearance: alert, in no apparent distress Head exam: Present: atraumatic, normocephalic, normal inspection Eye exam: Present: normal appearance, PERRL, EOMI. Absent: scleral icterus, conjunctival injection, periorbital swelling ENT exam: Present: normal exam, mucous membranes moist Neck exam: Present: normal inspection. Absent: tenderness, meningismus, lymphadenopathy Respiratory exam: Present: normal lung sounds bilaterally. Absent: respiratory distress, wheezes, rales, rhonchi, stridor Cardiovascular Exam: Present: regular rate, normal rhythm, normal heart sounds. Absent: systolic murmur, diastolic murmur, rubs, gallop, clicks GI/Abdominal exam: Present: soft, normal bowel sounds. Absent: distended, tenderness, guarding, rebound, rigid Extremities exam: Present: normal inspection, full ROM, normal capillary refill. Absent: tenderness, pedal edema, joint swelling, calf tenderness Back exam: Present: normal inspection Neurological exam: Present: alert, oriented X3, CN II-XII intact Psychiatric exam: Present: normal affect, normal mood Skin exam: Present: warm, dry, intact, normal color. Absent: rash <Bruce Cloud - Last Filed: 02/09/24 17:38> - General Exam Comments Initial Comments: Visual Physical Exam Vital signs reviewed General: Well-appearing, nontoxic, no acute distress. Head: Normocephalic, atraumatic Eyes: PERRLA, EOMI ENT: Airway patent Chest: Nonlabored breathing Skin: No visual rash, normal skin tone Neuro: Alert and oriented 3 Musculoskeletal: No gross abnormalities (Anastacia Simms) Course <Bruce Cloud - Last Filed: 02/09/24 17:38> Vital Signs 01/29/24 01/29/24 16:01 18:44 Temperature 98.1 F 98 F Pulse Rate 70 72 Respiratory 20 18 Rate Blood Pressure 171/85 165/78 O2 Sat by Pulse 96 96 Oximetry - Reevaluation(s) Reevaluation #1: Medical records reviewed (Bruce Cloud) Reevaluation #2: Patient symptoms unchanged (Bruce Cloud) Reevaluation #3: Patient informed of results and questions answered (Bruce Cloud) Reevaluation #4: Was pt. sent in by a medical professional or institution (, JUAN [facility], NURSE ASSISTANT, urgent care, hospital, or fci...) When possible be specific @ -no Did you speak to anyone other than the patient for history (EMS, parent, family, police, friend...)? What history was obtained from this source @ -no Did you review nursing and triage notes (agree or disagree)? Why? @ -agree Are old charts reviewed (outside hosp., previous admission, EMS record, old EKG, old radiological studies, urgent care reports/EKG's, fci records)? Report findings @ -yes Differential Diagnosis (chest pain, altered mental status, abdominal pain women, abdominal pain men, vaginal bleeding, weakness, fever, dyspnea, syncope, headache, dizziness, GI bleed, back pain, seizure, CVA, palpatations, mental health, musculoskeletal)? @ -prior EKG interpreted by me (3pts min.). @ -no X-rays interpreted by me (1pt min.). @ -no CT interpreted by me (1pt min.). @ -no U/S interpreted by me (1pt. min.). @ -no What testing was considered but not performed or refused? (CT, X-rays, U/S, labs)? Why? @ -none What meds were considered but not given or refused? Why? @ -none Did you discuss the management of the patient with other professionals (professionals i.e. JUAN C Mariscal, NURSE ASSISTANT, lab, RT, psych nurse, social media content specialist, inter fold roll cutter, teacher, space officer, case management assistant)? Give summary @ -no Was smoking cessation discussed for >3mins.? @ -no Was critical care preformed (if so, how long)? @ -no Were there social determinants of health that impacted care today? How? (Homelessness, low income, unemployed, alcoholism, drug addiction, transpo rtation, low edu. Level, literacy, decrease access to med. care, custodial, rehab)? @ -none Was there de-escalation of care discussed even if they declined (Discuss DNR or withdrawal of care, Hospice)? DNR status @ -no What co-morbidities impacted this encounter? (DM, HTN, Smoking, COPD, CAD, Cancer, CVA, ARF, Chemo, Hep., AIDS, mental health diagnosis, sleep apnea, morbid obesity)? @ -none Was patient admitted / discharged? Hospital course, mention meds given and route, prescriptions, significant lab abnormalities, going to OR and other pertinent info. @ - 83 male for G-tube evaluation. Tube is functioning appropriately here in the ER patient can be discharged home Discharge Undiagnosed new problem with uncertain prognosis? @ -no Drug Therapy requiring intensive monitoring for toxicity (Heparin, Nitro, Insulin, Cardizem)? @ -no Were any procedures done? @ -no Diagnosis/symptom? @ - Acute, or Chronic, or Acute on Chronic? @ -Acute Uncomplicated (without systemic symptoms) or Complicated (systemic symptoms)? @ -Complicated Side effects of treatment? @ -no Exacerbation, Progression, or Severe Exacerbation? @ -exacerbation Poses a threat to life or bodily function? How? (Chest pain, [place], [place], pneumonia, PE, COPD, DKA, ARF, appy, cholecystitis, CVA, Diverticulitis, Homicidal, Suicidal, threat to staff... and all critical care pts) @ -yes extremes of age G-tube malfunction (Bruce Cloud) Medical Decision Making <Anastacia Simms - Last Filed: 01/29/24 16:20> <Bruce Cloud - Last Filed: 02/09/24 17:38> - Medical Decision Making Quick note preformed and electronically signed by Anastacia Simms PA-C (Anastacia Simms) 83 male for G-tube evaluation. Tube is functioning appropriately here in the ER patient can be discharged home (Bruce Cloud) Disposition <Anastacia Simms - Last Filed: 01/29/24 16:20> Is patient prescribed a controlled substance at d/c from ED?: No Time of Disposition: 16:50 <Bruce Cloud - Last Filed: 02/09/24 17:38> Clinical Impression: Complaint associated with gastric tube Disposition: HOME SELF-CARE Instructions (If sedation given, give patient instructions): How to Use and Care for Your PEG Tube (ED) Referrals: Mc Mukherjee DO [Primary Care Provider] - 1-2 days
[2024-01-29 18:47] VITALS: BP 165/78; PULSE 72; RESP 18; TEMP 98
== END 2024-01-29 18:46 | disposition home or self-care (01) ==
LOC: EC 15:52
DX: Z43.1 Encounter for attention to gastrostomy (principal)
CPT/HCPCS: 99283